=== PATIENT | female | born 1970 | race Two or more races ===

== ENCOUNTER 2020-03-05 14:00 | Inpatient (IN) | payer SELFPAY ==
[~2020-03-05] VITALS: Ht 162.6 cm; Wt 81.6 kg
[2020-03-05 14:09] VITALS: BP 112/35
--- NOTE | 2020-03-05 14:10 | NUR ---
ED Nurse Note: pt presents to ED c/o SOB, fever and CP x 1.5 weeks, pt states that she tested (+) for COVID last and since then she has felt worse. pt reports px i n her chest that is worse with cough, she has been coughing for 3 days. pt reports N/V, denies any diarrhea at this time. pt is noted to be satting at 96% on RA and febrile upon triage. 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 pt immediately placed on 15L NRB O2, 20 g IV line etablished on R AC, blood collected and sent to lab Addendum: 03/06/20 at 2013 by IZABELA pt was satting at 86% on RA on triage, not 9^%
[2020-03-05] MEDS ORDERED: dexAMETHasone 10mg/ml Inj IV ONE ×2 (14:30)
--- NOTE | 2020-03-05 14:40 | Emergency Room Report ---
History of Present Illness General Chief Complaint: Dyspnea/Respdistress Source: Patient (Ramonita Palm) Present Illness HPI 49-year-old female with current status of Covid positive x10 days here complaining of 1 week of shortness of breath, fever and chills, rapid heart rate. Patient appears to be febrile with temperature 102 F, hypoxic of 86%, and tachycardic. Denies any chest pain, diarrhea, headache and dizziness. Denies history of diabetes, tobacco smoke, drug use. Denies . Has not taken medication for symptom relief. (Ramonita Palm) Allergies: Coded Allergies: PENICILLINS (Verified Allergy, Unknown, 03/05/20) COVID-19 Screening Contact w/high risk pt: No Experienced COVID-19 symptoms?: Yes COVID-19 Testing performed PHYSIOTHERAPY ASSISTANT: Yes COVID-19 Screening: Positive COVID-19 COVID-19 Testing Source: 02/25/20 (Ramonita Palm) Patient History Past Medical History: see triage record Past Surgical History: none Pertinent Family History: none Now: No Reviewed Nursing Documentation: PMH: Agreed; PSxH: Agreed (Ramonita Palm) Nursing Documentation-PMH Past Medical History: No Stated History (Ramonita Palm) Physical Exam Vital Signs Date Time Temp Pulse Resp B/P (MAP) Pulse Ox O2 Delivery O2 Flow Rate FiO2 03/05/20 14:08 102.7 108 16 112/35 (60) 86 Room Air Sp02 EP Interpretation: abnormal - hypoxic, febrile, tachy General Appearance: mild distress Head: normocephalic, atraumatic Eyes: bilateral eye normal inspection, bilateral eye PERRL ENT: no angioedema Neck: supple Respiratory: chest non-tender, no respiratory distress, no retraction, no accessory muscle use Cardiovascular #1: regular rate, rhythm, no murmur Gastrointestinal: non tender, soft, non-distended Genitourinary: no CVA tenderness Neurologic: alert, motor strength/tone normal, oriented x3, sensory intact, responsive, speech normal Psychiatric: judgement/insight normal, memory normal, mood/affect normal, no suicidal/homicidal ideation Skin: no rash Lymphatic: no adenopathy (Ramonita Palm) Procedures Critical Care Time Critical Care Time Total critical care time; approximately 31 minutes. Due to a high probability of clinically significant, life threatening deterioration, the patient required my highest level of preparedness to intervene emergently and I personally spent this critical care time directly and personally managing the patient. This critical care time included obtaining a history; examining the patient; pulse oximetry; ordering and reviewing of studies; arranging urgent treatment with development of a management plan; evaluation of patient's response to treatment; frequent reassessment; and, discussions with other providers. This critical care time was performed to assess and manage the high probability of imminent, life-threatening deterioration that could result in multiorgan failure it was exclusive of separate billable procedures and treating other patients and teaching time. Please see MDM section and the rest of the note for further information on patient assessment and treatment.pt received 15L of O2 on NR (Ramonita Palm) Medical Decision Making PA Attestation All diagnoses and treatment plans were reviewed and discussed with my supervising physician Dr. Olsen (Ramonita Palm) PA Attestation I participate in the care of this patient along with DEYA Mercado Briefly, 49-year-old female testing positive for COVID-19 virus approximately 1 week ago. Worsening respiratory symptoms. X-ray showed patchy opacities. D- dimer positive. Patient on oxygen but titrating down now saturating 100% on 15 L. Received Decadron, antibiotics. Admitted to telemetry to panel physician, (Anam Olsen MD) Diagnostic Impression: Primary Impression: Hypoxia Additional Impression: Pneumonia due to COVID-19 virus ER Course 49-year-old female with current status of Covid positive x10 days here complaining of 1 week of shortness of breath, fever and chills, rapid heart rate. Patient appears to be febrile with temperature 102 F, hypoxic of 86%, and tachycardic. Denies any chest pain, diarrhea, headache and dizziness. Denies history of diabetes, tobacco smoke, drug use. Denies . Has not taken medication for symptom relief. Ddx considered but are not limited to: Hypoxia, Covid pneumonia, bronchitis, PNA, URI viral, bacterial brochitis Vital signs: are WNL, pt. is febrile H&PE are most consistent with: Hypoxia, Covid pneumonia ORDERS: ER Covid order set ED INTERVENTIONS: Dexamethasone, NS bolus, oxygen Patient was admitted with diagnosis of hypoxia, Covid pneumonia to Dr. Carolina under supervision of : Raúl pt stable at time of admission (Ramonita Palm) EKG Diagnostic Results Rate: normal Rhythm: NSR ST Segments: no acute changes Other Impression No acute ST changes (Ramonita Palm) Chest X-Ray Diagnostic Results Chest X-Ray Diagnostic Results : Chest X-Ray Ordered: Yes # of Views/Limited/Complete: 1 View Indication: Shortness of Breath EP Interpretation: Yes PA Xray: Interpretation reviewed, by supervising MD, and agrees with findings. Interpretation: other - infiltrates bilaterally Impression: Other - PNA Electronically Signed by: Ramonita Quintero PA-C (Ramonita Palm) Last Vital Signs Date Time Temp Pulse Resp B/P (MAP) Pulse Ox O2 Delivery O2 Flow Rate FiO2 03/05/20 14:08 102.7 108 16 112/35 (60) 86 Room Air (Ramonita Palm) Disposition: ADMITTED INPATIENT Condition: Serious Scripts No Active Prescriptions or Reported Meds Ramonita Palm Mar 05, 2020 14:40 Anam Olsen MD Mar 05, 2020 16:14
--- NOTE | 2020-03-05 14:50 | NUR ---
ED Nurse Note: pt's saturation increased to 100% on 15L NRB, HR has decreased to within normal limits
[2020-03-05 15:02] LABS: HEMOGLOBIN 11.8 G/DL (12.0-16.0); MEAN CORPUSCULAR VOLUME 83 FL (80-99); PLATELET COUNT 142 K/UL (150-450); RED BLOOD COUNT 3.97 M/UL (4.20-5.40); RED CELL DISTRIBUTION WIDTH 13.3 % (11.6-14.8); WHITE BLOOD COUNT 7.1 K/UL (4.8-10.8)
[2020-03-05 15:10] VITALS: BP 119/58
[2020-03-05 15:12] LABS: INR 1.1 (0.9-1.1)
[2020-03-05] MEDS: cefTRIAXone 1 GM in D5W 55 ML IVPB SCH (15:30)
[2020-03-05] MEDS ORDERED: cefTRIAXone 1 GM in NS 55 ML IVPB ONE (15:30)
[2020-03-05] MEDS ORDERED: Azithromycin 500 MG in NS 275 ML IV ONE (15:30)
[2020-03-05 15:40] LABS: ANION GAP 11 mmol/L (5-15); BLOOD UREA NITROGEN 11 mg/dL (7-18); CALCIUM 8.3 MG/DL (8.5-10.1); CARBON DIOXIDE 23 MMOL/L (21-32); CHLORIDE 101 MMOL/L (98-107); CREATININE 0.7 MG/DL (0.55-1.30); POTASSIUM 3.5 MMOL/L (3.5-5.1); SODIUM 135 MMOL/L (136-145)
[2020-03-05 15:47] LABS: ALANINE AMINOTRANSFERASE 23 U/L (12-78); ALBUMIN 3.1 G/DL (3.4-5.0); ALBUMIN/GLOBULIN RATIO 0.7 (1.0-2.7); ALKALINE PHOSPHATASE 73 U/L (46-116); ASPARTATE AMINO TRANSFERASE 26 U/L (15-37); BILIRUBIN,TOTAL 0.3 MG/DL (0.2-1.0); CKMB < 0.5 NG/ML (0.0-3.6); CREATINE KINASE 54 U/L (26-308); FERRITIN 114 NG/ML (8-388); LACTATE DEHYDROGENASE 260 U/L (81-234)
--- NOTE | 2020-03-05 15:57 | Diagnostic Imaging Report ---
EXAM: XR Chest, 1 View CLINICAL HISTORY: Shortness of breath TECHNIQUE: Frontal view of the chest. COMPARISON: No relevant prior studies available. FINDINGS: Lungs: Bilateral patchy pulmonary opacities, concerning for pneumonia. Low lung lines, likely related to shallow inspiration. Pleural space: Unremarkable. The costophrenic angles are sharp. No visible pneumothorax. Heart: Cardiac silhouette is mildly enlarged, however, may be exaggerated by portable AP exam technique. Mediastinum: Unremarkable. Bones/joints: Unremarkable. IMPRESSION: 1. Bilateral patchy pulmonary opacities, concerning for pneumonia. 2. Low lung lines, likely related to shallow inspiration.
[2020-03-05] MEDS ORDERED: Enoxaparin 60mg Inj SUBQ ONE (16:00)
[2020-03-05] MEDS ORDERED: Enoxaparin 40mg Inj SUBQ ONE (16:00)
--- NOTE | 2020-03-05 16:24 | NUR ---
ED Nurse Note: Report received from GEMA Villavicencio. Pt saturating at 100% on 15L NR. pt does not appear in acute distress at this time.
[2020-03-05 16:30] VITALS: BP 113/81
--- NOTE | 2020-03-05 16:40 | NUR ---
ED Nurse Note: PT RESTING IN BED ON HER PHONE.
--- NOTE | 2020-03-05 16:57 | NUR ---
ED Nurse Note: Dr. Bella (infectious disease doctor) at bedside
--- NOTE | 2020-03-05 17:08 | Infectious Diseases Prog Note ---
Assessment/Plan Problems: (1) COVID-19 virus infection Assessment & Plan: with hypoxemia , will start remdisvir and continue decadron, enhanced droplets isolation (2) Pneumonia due to COVID-19 virus Assessment & Plan: will start remdisvir and continue decadron , monitor O2 sat and CXR , SEND SPUTUM CULTURE (3) Hypoxia (4) Fever due to COVID-19 (5) Acute hypoxemic respiratory failure due to COVID-19 Subjective Allergies: Coded Allergies: PENICILLINS (Verified Allergy, Unknown, 03/05/20) Objective Last 24 Hour Vital Signs Date Time Temp Pulse Resp B/P (MAP) Pulse Ox O2 Delivery O2 Flow Rate FiO2 03/05/20 16:30 98.8 69 28 113/81 100 Non-Rebreather 15.0 100 03/05/20 15:10 89 31 119/58 100 Non-Rebreather 15.0 03/05/20 14:09 108 16 Room Air 03/05/20 14:09 102.7 105 16 112/35 86 Room Air 03/05/20 14:08 102.7 108 16 112/35 (60) 86 Room Air Height (Feet): 5 Height (Inches): 4.00 Weight (Pounds): 180 Laboratory Tests Test 03/05/20 14:40 White Blood Count 7.1 K/UL (4.8-10.8) Red Blood Count 3.97 M/UL (4.20-5.40) L Hemoglobin 11.8 G/DL (12.0-16.0) L Hematocrit 33.0 % (37.0-47.0) L Mean Corpuscular Volume 83 FL (80-99) Mean Corpuscular Hemoglobin 29.8 PG (27.0-31.0) Mean Corpuscular Hemoglobin Concent 35.9 G/DL (32.0-36.0) Red Cell Distribution Width 13.3 % (11.6-14.8) Platelet Count 142 K/UL (150-450) L Mean Platelet Volume 9.3 FL (6.5-10.1) Neutrophils (%) (Auto) % (45.0-75.0) Lymphocytes (%) (Auto) % (20.0-45.0) Monocytes (%) (Auto) % (1.0-10.0) Eosinophils (%) (Auto) % (0.0-3.0) Basophils (%) (Auto) % (0.0-2.0) Differential Total Cells Counted 100 Neutrophils % (Manual) 90 % (45-75) H Lymphocytes % (Manual) 8 % (20-45) L Monocytes % (Manual) 2 % (1-10) Eosinophils % (Manual) 0 % (0-3) Basophils % (Manual) 0 % (0-2) Band Neutrophils 0 % (0-8) Platelet Estimate Adequate Platelet Morphology Normal Hypochromasia 1+ Prothrombin Time 12.1 SEC (9.30-11.50) H Prothromb Time International Ratio 1.1 (0.9-1.1) Activated Partial Thromboplast Time 33 SEC (23-33) D-Dimer 1.25 mg/L FEU (0.00-0.49) H Sodium Level 135 MMOL/L (136-145) L Potassium Level 3.5 MMOL/L (3.5-5.1) Chloride Level 101 MMOL/L (98-107) Carbon Dioxide Level 23 MMOL/L (21-32) Anion Gap 11 mmol/L (5-15) Blood Urea Nitrogen 11 mg/dL (7-18) Creatinine 0.7 MG/DL (0.55-1.30) Estimat Glomerular Filtration Rate > 60 mL/min (>60) Glucose Level 107 MG/DL (74-106) H Lactic Acid Level 1.20 mmol/L (0.4-2.0) Calcium Level 8.3 MG/DL (8.5-10.1) L Ferritin 114 NG/ML (8-388) Total Bilirubin 0.3 MG/DL (0.2-1.0) Aspartate Amino Transf (AST/SGOT) 26 U/L (15-37) Alanine Aminotransferase (ALT/SGPT) 23 U/L (12-78) Alkaline Phosphatase 73 U/L (46-116) Lactate Dehydrogenase 260 U/L (81-234) H Total Creatine Kinase 54 U/L (26-308) Creatine Kinase MB < 0.5 NG/ML (0.0-3.6) Creatine Kinase MB Relative Index 0.9 Troponin I 0.000 ng/mL (0.000-0.056) C-Reactive Protein, Quantitative 25.6 mg/dL (0.00-0.90) H Pro-B-Type Natriuretic Peptide Pending Total Protein 7.7 G/DL (6.4-8.2) Albumin 3.1 G/DL (3.4-5.0) L Globulin 4.6 g/dL Albumin/Globulin Ratio 0.7 (1.0-2.7) L Lipase 72 U/L (73-393) L Mandi Bella M.D. Mar 05, 2020 17:08
[2020-03-05 18:08] VITALS: BP 105/67
--- NOTE | 2020-03-05 18:43 | NUR ---
Note latricia in EDM - 03/05/20 at 1843 by TERRELL ED Nurse Note: Pt resting in bed right lateral. Pt saturating at 96% on 4 L nasal cannula. pt vss.
--- NOTE | 2020-03-05 18:44 | NUR ---
ED Nurse Note: Pt in bed asleep. Resting HR 44-55.
--- NOTE | 2020-03-05 19:08 | NUR ---
HAND-OFF: Report given to GEMA Pizarro.
--- NOTE | 2020-03-05 19:09 | NUR ---
ED Nurse Note: Report received from JAVAN RIBEIRO
[2020-03-05] MEDS ORDERED: Morphine Sulfate 2mg/ml Inj(IV/IM USE ONLY) IVP PRN (20:30)
[2020-03-05] MEDS ORDERED: Albuterol/Ipratropium 3ml neb HHN PRN (20:30)
[2020-03-05] MEDS ORDERED: LORazepam Inj 2mg/ml 1ml IV PRN (20:30)
[2020-03-05] MEDS ORDERED: Zolpidem 5mg tab ORAL PRN (20:30)
--- NOTE | 2020-03-05 20:33 | Cardiology Progress Note ---
Assessment/Plan Assessment/Plan The patient is seen and examined, full consult note is dictated. Objective Last 24 Hour Vital Signs Date Time Temp Pulse Resp B/P (MAP) Pulse Ox O2 Delivery O2 Flow Rate FiO2 03/05/20 18:08 98.8 61 24 105/67 100 Non-Rebreather 15.0 03/05/20 16:30 98.8 69 28 113/81 100 Non-Rebreather 15.0 100 03/05/20 15:21 98.8 03/05/20 15:10 89 31 119/58 100 Non-Rebreather 15.0 03/05/20 14:09 108 16 Room Air 03/05/20 14:09 102.7 105 16 112/35 86 Room Air 03/05/20 14:08 102.7 108 16 112/35 (60) 86 Room Air Laboratory Tests Test 03/05/20 14:40 White Blood Count 7.1 K/UL (4.8-10.8) Red Blood Count 3.97 M/UL (4.20-5.40) L Hemoglobin 11.8 G/DL (12.0-16.0) L Hematocrit 33.0 % (37.0-47.0) L Mean Corpuscular Volume 83 FL (80-99) Mean Corpuscular Hemoglobin 29.8 PG (27.0-31.0) Mean Corpuscular Hemoglobin Concent 35.9 G/DL (32.0-36.0) Red Cell Distribution Width 13.3 % (11.6-14.8) Platelet Count 142 K/UL (150-450) L Mean Platelet Volume 9.3 FL (6.5-10.1) Neutrophils (%) (Auto) % (45.0-75.0) Lymphocytes (%) (Auto) % (20.0-45.0) Monocytes (%) (Auto) % (1.0-10.0) Eosinophils (%) (Auto) % (0.0-3.0) Basophils (%) (Auto) % (0.0-2.0) Differential Total Cells Counted 100 Neutrophils % (Manual) 90 % (45-75) H Lymphocytes % (Manual) 8 % (20-45) L Monocytes % (Manual) 2 % (1-10) Eosinophils % (Manual) 0 % (0-3) Basophils % (Manual) 0 % (0-2) Band Neutrophils 0 % (0-8) Platelet Estimate Adequate Platelet Morphology Normal Hypochromasia 1+ Prothrombin Time 12.1 SEC (9.30-11.50) H Prothromb Time International Ratio 1.1 (0.9-1.1) Activated Partial Thromboplast Time 33 SEC (23-33) D-Dimer 1.25 mg/L FEU (0.00-0.49) H Sodium Level 135 MMOL/L (136-145) L Potassium Level 3.5 MMOL/L (3.5-5.1) Chloride Level 101 MMOL/L (98-107) Carbon Dioxide Level 23 MMOL/L (21-32) Anion Gap 11 mmol/L (5-15) Blood Urea Nitrogen 11 mg/dL (7-18) Creatinine 0.7 MG/DL (0.55-1.30) Estimat Glomerular Filtration Rate > 60 mL/min (>60) Glucose Level 107 MG/DL (74-106) H Lactic Acid Level 1.20 mmol/L (0.4-2.0) Calcium Level 8.3 MG/DL (8.5-10.1) L Ferritin 114 NG/ML (8-388) Total Bilirubin 0.3 MG/DL (0.2-1.0) Aspartate Amino Transf (AST/SGOT) 26 U/L (15-37) Alanine Aminotransferase (ALT/SGPT) 23 U/L (12-78) Alkaline Phosphatase 73 U/L (46-116) Lactate Dehydrogenase 260 U/L (81-234) H Total Creatine Kinase 54 U/L (26-308) Creatine Kinase MB < 0.5 NG/ML (0.0-3.6) Creatine Kinase MB Relative Index 0.9 Troponin I 0.000 ng/mL (0.000-0.056) C-Reactive Protein, Quantitative 25.6 mg/dL (0.00-0.90) H Pro-B-Type Natriuretic Peptide Pending Total Protein 7.7 G/DL (6.4-8.2) Albumin 3.1 G/DL (3.4-5.0) L Globulin 4.6 g/dL Albumin/Globulin Ratio 0.7 (1.0-2.7) L Lipase 72 U/L (73-393) L Breezy Raymond MD Mar 05, 2020 20:33
[2020-03-05] MEDS ORDERED: Loading Dose:Remdesivir 200mg/NS 210ml IV SCH ×2 (21:30)
--- NOTE | 2020-03-05 22:00 | Consultation ---
History of Present Illness General Date patient seen: Mar 05, 2020 Time patient seen: 16:18 Chief Complaint: Dyspnea/Respdistress Referring physician: Kesha Serrano Reason for Consultation: COVID 19 Viral infection Present Illness HPI This is a 49-year-old female with no significant PMH presented to [facility] ED complaining of one week of shortness of breath, fever and chills, and rapid heart rate. Patient tested positive for COVID 19 about two weeks ago and her symptoms have been getting worse what prompted her to come to ED . Patient was found to be febrile with temperature 102 F, hypoxic of 86% on RA , and tachycardic. Denies any chest pain, diarrhea, headache and dizziness. Denies any sick contact with COVID cases or recent travel , no diabetes, tobacco smoke, or drug use. Denies . Has not taken m edication for symptom relief. Patient tested positive for COVID 19 with rapid test , so she was given decadron iv and antibiotics, infectious disease consult was requested for antimicrobial treatment and further care . Allergies: Coded Allergies: PENICILLINS (Verified Allergy, Unknown, 03/05/20) Medication History No Active Prescriptions or Reported Meds Patient History Limited by: language barrier History Provided By: Patient, Medical Record Healthcare decision maker Resuscitation status Advanced Directive on File Review of Systems Constitutional: Reports: chills, fever, weakness ENT: Reports: throat pain Respiratory: Reports: cough, shortness of breath Cardiovascular: Reports: palpitations Gastrointestinal: Reports: nausea Genitourinary: Reports: no symptoms Musculoskeletal: Reports: muscle pain Skin: Reports: no symptoms Psychiatric: Reports: no symptoms Neurological: Reports: headache Endocrine: Reports: no symptoms Hematologic/Lymphatic: Reports: no symptoms Physical Exam General Appearance: WD/WN, no apparent distress, alert, lethargic, obese, alert oriented x3 Lines, tubes and drains: peripheral HEENT: normocephalic, atraumatic, anicteric, mucous membranes moist, PERRL Neck: non-tender, supple, normal inspection Respiratory/Chest: chest wall non-tender, no respiratory distress, crackles/rales, rhonchi - bilaterally Cardiovascular/Chest: normal peripheral pulses, normal rate, regular rhythm, no gallop/murmur Abdomen: normal bowel sounds, non tender, soft, no organomegaly, no mass Genitourinary/Rectal: normal genital exam Extremities: normal range of motion, non-tender, normal inspection, no calf tenderness, normal capillary refill Skin Exam: normal pigmentation, warm/dry 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, alert, oriented x 3, responsive Musculoskeletal: normal muscle bulk, no effusion Last 24 Hour Vital Signs Date Time Temp Pulse Resp B/P (MAP) Pulse Ox O2 Delivery O2 Flow Rate FiO2 03/05/20 18:08 98.8 61 24 105/67 100 Non-Rebreather 15.0 03/05/20 16:30 98.8 69 28 113/81 100 Non-Rebreather 15.0 100 03/05/20 15:21 98.8 03/05/20 15:10 89 31 119/58 100 Non-Rebreather 15.0 03/05/20 14:09 108 16 Room Air 03/05/20 14:09 102.7 105 16 112/35 86 Room Air 03/05/20 14:08 102.7 108 16 112/35 (60) 86 Room Air Laboratory Tests Test 03/05/20 14:40 White Blood Count 7.1 K/UL (4.8-10.8) Red Blood Count 3.97 M/UL (4.20-5.40) L Hemoglobin 11.8 G/DL (12.0-16.0) L Hematocrit 33.0 % (37.0-47.0) L Mean Corpuscular Volume 83 FL (80-99) Mean Corpuscular Hemoglobin 29.8 PG (27.0-31.0) Mean Corpuscular Hemoglobin Concent 35.9 G/DL (32.0-36.0) Red Cell Distribution Width 13.3 % (11.6-14.8) Platelet Count 142 K/UL (150-450) L Mean Platelet Volume 9.3 FL (6.5-10.1) Neutrophils (%) (Auto) % (45.0-75.0) Lymphocytes (%) (Auto) % (20.0-45.0) Monocytes (%) (Auto) % (1.0-10.0) Eosinophils (%) (Auto) % (0.0-3.0) Basophils (%) (Auto) % (0.0-2.0) Differential Total Cells Counted 100 Neutrophils % (Manual) 90 % (45-75) H Lymphocytes % (Manual) 8 % (20-45) L Monocytes % (Manual) 2 % (1-10) Eosinophils % (Manual) 0 % (0-3) Basophils % (Manual) 0 % (0-2) Band Neutrophils 0 % (0-8) Platelet Estimate Adequate Platelet Morphology Normal Hypochromasia 1+ Prothrombin Time 12.1 SEC (9.30-11.50) H Prothromb Time International Ratio 1.1 (0.9-1.1) Activated Partial Thromboplast Time 33 SEC (23-33) D-Dimer 1.25 mg/L FEU (0.00-0.49) H Sodium Level 135 MMOL/L (136-145) L Potassium Level 3.5 MMOL/L (3.5-5.1) Chloride Level 101 MMOL/L (98-107) Carbon Dioxide Level 23 MMOL/L (21-32) Anion Gap 11 mmol/L (5-15) Blood Urea Nitrogen 11 mg/dL (7-18) Creatinine 0.7 MG/DL (0.55-1.30) Estimat Glomerular Filtration Rate > 60 mL/min (>60) Glucose Level 107 MG/DL (74-106) H Lactic Acid Level 1.20 mmol/L (0.4-2.0) Calcium Level 8.3 MG/DL (8.5-10.1) L Ferritin 114 NG/ML (8-388) Total Bilirubin 0.3 MG/DL (0.2-1.0) Aspartate Amino Transf (AST/SGOT) 26 U/L (15-37) Alanine Aminotransferase (ALT/SGPT) 23 U/L (12-78) Alkaline Phosphatase 73 U/L (46-116) Lactate Dehydrogenase 260 U/L (81-234) H Total Creatine Kinase 54 U/L (26-308) Creatine Kinase MB < 0.5 NG/ML (0.0-3.6) Creatine Kinase MB Relative Index 0.9 Troponin I 0.000 ng/mL (0.000-0.056) C-Reactive Protein, Quantitative 25.6 mg/dL (0.00-0.90) H Pro-B-Type Natriuretic Peptide Pending Total Protein 7.7 G/DL (6.4-8.2) Albumin 3.1 G/DL (3.4-5.0) L Globulin 4.6 g/dL Albumin/Globulin Ratio 0.7 (1.0-2.7) L Lipase 72 U/L (73-393) L Height (Feet): 5 Height (Inches): 4.00 Weight (Pounds): 180 Medications Current Medications Medications (Trade) Dose Ordered Sig/Jennifer Route PRN Reason Start Time Stop Time Status Last Admin Dose Admin Acetaminophen (Tylenol) 650 mg Q4H PRN ORAL Mild Pain (Pain Scale 1-3) 03/05/20 20:30 04/04/20 20:29 UNV Albuterol/ Ipratropium (Albuterol/ Ipratropium) 3 ml QID PRN HHN Shortness of Breath 03/05/20 20:30 03/10/20 20:29 UNV Azithromycin 500 mg/Dextrose 275 ml @ 275 mls/hr Q24H IV 03/05/20 21:30 03/10/20 21:29 UNV Ceftriaxone Sodium 1 gm/ Dextrose 55 ml @ 110 mls/hr Q24H IV 03/05/20 21:30 03/12/20 21:29 UNV Enoxaparin Sodium (Lovenox) 40 mg Q24H SUBQ 03/05/20 21:30 06/03/20 21:29 UNV Lorazepam (Ativan 2mg/ml 1ml) 0.5 mg Q4H PRN IV For Anxiety 03/05/20 20:30 03/12/20 20:29 UNV Morphine Sulfate (Morphine Sulfate) 2 mg TID PRN IVP Moderate Pain (Pain Scale 4-6) 03/05/20 20:30 03/12/20 20:29 UNV Ondansetron HCl (Zofran) 4 mg Q6H PRN IVP Nausea & Vomiting 03/05/20 20:30 04/04/20 20:29 UNV Pantoprazole (Protonix) 40 mg DAILY ORAL 03/06/20 09:00 04/05/20 08:59 UNV Remdesivir 100 mg/ Sodium Chloride 250 ml @ 250 mls/hr Q24H IV 03/06/20 18:00 03/09/20 18:59 Remdesivir 200 mg/ Sodium Chloride 250 ml @ 125 mls/hr ONCE IV 03/05/20 21:30 03/05/20 23:59 Zolpidem Tartrate (Ambien) 5 mg HSPRN PRN ORAL Insomnia 03/05/20 20:30 03/12/20 20:29 UNV Assessment/Plan Problem List: (1) COVID-19 virus infection Assessment & Plan: with hypoxemia , will start remdisvir and continue decadron, enhanced droplets isolation ICD Codes: U07.1 - COVID-19 SNOMED: 257281762 (2) Pneumonia due to COVID-19 virus Assessment & Plan: will start remdisvir and continue decadron , monitor O2 sat and CXR , SEND SPUTUM CULTURE ICD Codes: U07.1 - COVID-19; J12.89 - Other viral pneumonia SNOMED: 727806924270725623 (3) Hypoxia ICD Codes: R09.02 - Hypoxemia; J12.89 - Other viral pneumonia SNOMED: 844782742 (4) Fever due to COVID-19 ICD Codes: U07.1 - COVID-19; R50.9 - Fever, unspecified (5) Acute hypoxemic respiratory failure due to COVID-19 ICD Codes: U07.1 - COVID-19; J96.01 - Acute respiratory failure with hypoxia Status: stable Mandi Bella M.D. Mar 05, 2020 22:00
--- NOTE | 2020-03-05 22:51 | NUR ---
ED Nurse Note: Urine sent to lab. Patient is awake on bed. AAOX4. VSS as documented
[2020-03-05 22:52] VITALS: BP 112/71
[2020-03-05 23:02] LABS: BILIRUBIN, URINE NEGATIVE (NEGATIVE); GLUCOSE, URINE (UA) NEGATIVE (NEGATIVE); KETONES,URINE 3+ (NEGATIVE); LEUKOCYTE ESTERASE ,URINE 1+ (NEGATIVE); NITRITE,URINE NEGATIVE (NEGATIVE); PH,URINE 6 (4.5-8.0); PROTEIN,URINE 2+ (NEGATIVE); UROBILINOGEN,URINE NORMAL MG/DL (0.0-1.0)
[2020-03-05 23:17] LABS: APPEARANCE,URINE SLIGHTLY CLOUDY; COLOR,URINE YELLOW
--- NOTE | 2020-03-05 23:45 | Consultation ---
DATE OF CONSULTATION: 03/05/2020 CARDIOLOGY CONSULTATION CONSULTING PHYSICIAN: Breezy Raymond MD REFERRING PHYSICIAN: Kevin Carolina MD REASON FOR CONSULTATION: Management of dyspnea from the cardiac standpoint, as well as tachycardia. HISTORY OF PRESENT ILLNESS: The patient is a very unfortunate 49-year-old female who presented to the hospital with one-week progressive worsening of shortness of breath, fever, and chills as well as palpitations. Apparently, the patient had a fever of 102, and oxygen level was also low at 86% at home. The patient became [id number] just about 10 days ago and according to the patient, her condition is not improving. She has not been given any medication for this condition. At the time of arrival to the hospital, blood pressure was 112/35 mmHg, mean of 60 and heart rate of 108, pulse oximetry of 86% on room air. She was febrile. She does not have any coronary artery disease risk factors. Initial blood tests in the emergency department showed hemoglobin 11.8, platelet count of 142,000 with of only 8%. Sodium of 135, and C-reactive protein of 25.6. Troponin I level was zero. D-dimer was 1.25. A 12-lead electrocardiogram was significant for sinus rhythm with no acute ischemic features. Chest x-ray showed patchy infiltration in both lungs with cardiomegaly. The patient still in the emergency department awaiting bed for acute respiratory failure and bilateral pneumonitis due to COVID-19 infection. Cardiology consultation was made at the request of Dr. Carolina for management of tachycardia. PAST MEDICAL HISTORY: None. ALLERGIES: Penicillin. FAMILY HISTORY: No premature coronary artery disease in the first-degree relatives. SOCIAL HISTORY: Denies any tobacco use, alcohol, or illicit drug use. REVIEW OF SYSTEMS: A 12-system review done and essentially negative except what was mentioned in history of present illness. MEDICATIONS: List of medications at home is none. PHYSICAL EXAMINATION: VITAL SIGNS: Blood pressure was 112/35, respirations 16, pulse of 108, temperature of 102.7 degrees Fahrenheit, O2 saturation of 86% on room air. GENERAL: This is a very unfortunate 49-year-old female in mild respiratory distress. Alert and oriented x4. HEENT: Atraumatic and normocephalic. Anicteric. Pupils are equal, round, and reactive to light and accommodation. Extraocular muscles intact. NECK: JVP less than 5 cm. No carotid bruit. Carotid upstrokes 2+ bilaterally. CARDIOVASCULAR SYSTEM: Normal S1, S2. Regular rhythm. Tachycardic. No murmurs, gallops, or rubs. PMI is at fourth intercostal space in midclavicular line. LUNGS: Bibasilar crackles. ABDOMEN: Soft, nontender, nondistended. No hepatosplenomegaly. Positive bowel sounds. EXTREMITIES: No evidence of edema, clubbing, or cyanosis. LABORATORY FINDINGS: Chemistry showed sodium 135, potassium 3.5, chloride 101, bicarbonate 23, BUN 11, creatinine 0.7, glucose 107, and calcium is 8.3. CBC, WBC count of 7.1, hemoglobin 11.9, hematocrit of 33.0, and platelet count is 142,000. INR is 1.1. ASSESSMENT AND PLAN: The patient is a very unfortunate 49-year-old female seen in Cardiology consultation. 1. Sinus tachycardia. This is due to hypoxemia. At this point, I would concentrate on oxygenation and active treatment of COVID-19 infection including remdesivir, dexamethasone, and azithromycin. The patient requires to be on a full dose of Lovenox, which will be initiated at 80 mg subcu twice daily in the face of elevated D-dimer and severe pneumonitis on chest x-ray. 2. COVID-19 pneumonitis. The patient may require to be admitted to [facility] given the severity of chest x-ray infiltration. I would like to thank Dr. Carolina for the courtesy of this consultation. Breezy Raymond M.D. DR: Dayday JOB#: [id number] CC:
--- NOTE | 2020-03-06 02:10 | NUR ---
ED Nurse Note: Patient asleep on bed. VSS as documented
[2020-03-06 02:30] VITALS: BP 127/85
--- NOTE | 2020-03-06 06:00 | NUR ---
ED Nurse Note: Admit labs sent for workup.
[2020-03-06 06:32] LABS: HEMATOCRIT 37.2 % (37.0-47.0); HEMOGLOBIN 12.7 G/DL (12.0-16.0); MEAN CORPUSCULAR VOLUME 87 FL (80-99); PLATELET COUNT 160 K/UL (150-450); RED BLOOD COUNT 4.26 M/UL (4.20-5.40); RED CELL DISTRIBUTION WIDTH 13.3 % (11.6-14.8); WHITE BLOOD COUNT 11.1 K/UL (4.8-10.8)
[2020-03-06 06:35] VITALS: BP 126/84
[2020-03-06 06:58] LABS: ALANINE AMINOTRANSFERASE 22 U/L (12-78); ALBUMIN 2.8 G/DL (3.4-5.0); ALBUMIN/GLOBULIN RATIO 0.6 (1.0-2.7); ALKALINE PHOSPHATASE 72 U/L (46-116); ANION GAP 9 mmol/L (5-15); ASPARTATE AMINO TRANSFERASE 25 U/L (15-37); BILIRUBIN,TOTAL 0.4 MG/DL (0.2-1.0); BLOOD UREA NITROGEN 15 mg/dL (7-18); CALCIUM 8.3 MG/DL (8.5-10.1); CARBON DIOXIDE 25 MMOL/L (21-32); CHLORIDE 106 MMOL/L (98-107); CREATININE 0.6 MG/DL (0.55-1.30); POTASSIUM 3.8 MMOL/L (3.5-5.1); SODIUM 140 MMOL/L (136-145)
--- NOTE | 2020-03-06 07:32 | NUR ---
ED Nurse Note: Dr. Carolina at bedside
--- NOTE | 2020-03-06 07:53 | NUR ---
ED Nurse Note: Report given to BASIA RIBEIRO
--- NOTE | 2020-03-06 08:00 | NUR ---
ED Nurse Note: Received report from GEMA Pizarro for continuity of care. Pt on bed, awake and alert x 4, VSS, satting at 100% on a NRB, no acute distress noted as of now. will continue to monitor.
--- NOTE | 2020-03-06 08:11 | History & Physical ---
History and Physical History & Physicial Full Dictation completed Kevin Carolina MD Mar 06, 2020 08:11
[2020-03-06] MEDS: Enoxaparin 40mg Inj SUBQ SCH (09:28)
[2020-03-06 11:08] VITALS: BP 105/80
[2020-03-06] MEDS ORDERED: Azithromycin 500 MG in D5W 275 ML IV SCH (15:30)
[2020-03-06] MEDS: cefTRIAXone 1 GM in D5W 55 ML IVPB SCH (15:42)
--- NOTE | 2020-03-06 16:01 | History and Physical Report ---
DATE OF ADMISSION: 03/05/2020 SOURCE OF INFORMATION: Patient and EMR. HISTORY OF PRESENT ILLNESS: Patient is a 49-year-old female who presented with shortness of breath for last 10 days. Patient denies any cough. Patient denies any nausea, vomitus, diarrhea, or constipation. Patient otherwise is asymptomatic. FAMILY HISTORY: Reviewed noncontributory. ALLERGIES: Penicillin. SOCIAL HISTORY: Patient lives by herself. Denies history of illicit drug abuse, smoking, or alcohol abuse. Reported that she is single. MEDICATIONS: Current hospital medications including, but not limited to azithromycin, ceftriaxone. Chest x-ray dated 03/05/2020 reviewed, shows bilateral patchy opacities. PHYSICAL EXAMINATION: VITAL SIGNS: Blood pressure 110/80, temperature 102, pulse rate 108, pulse ox 80% on room air, respiratory rate 18. HEAD AND NECK: Atraumatic and normocephalic. CHEST: Diffuse bronchial breathing sounds. HEART: S1, S2. Regular rate and rhythm. ABDOMEN: Soft. No organomegaly. MUSCULOSKELETAL: No gross lateralized motor deficit. NEUROLOGY: Patient is awake, alert, oriented x3. LABORATORY DATA: Labs dated 03/05/2020 shows WBC 7.1, hemoglobin of 11.8, platelet count of 142. Troponin negative. C-reactive protein 25. Lipase 72. Sodium 135. ASSESSMENT AND PLAN: 1. COVID positive pneumonia. 2. Anemia. 3. Hyponatremia. 4. Acute hypoxemic respiratory failure secondary to #1. 5. GI and DVT prophylaxes. PLAN OF CARE: We will continue with remdesivir along with the empiric antibiotic treatment. Infectious Disease, Pulmonary and network desktop support specialist have been consulted and notified. Patient agreed with transfer to [facility] [place]. COMMENTS: The time of this dictation does not reflect the actual time of encounter. Kevin Carolina M.D. DR: DAMIEN JOB#: [id number] CC: JON
--- NOTE | 2020-03-06 17:00 | Consultation ---
DATE OF CONSULTATION: 03/06/2020 CONSULTING PHYSICIAN: Amber Benson ATTENDING PHYSICIAN: Kevin Carolina M.D. REASON FOR CONSULTATION: Hypoxia, COVID-19 pneumonia. HISTORY OF PRESENT ILLNESS: This is a 49-year-old female without pertinent past medical history, who presented to the hospital with 1-week history of progressively worsening shortness of breath, fever, chills, as well as palpitations. Per the patient, she had a fever of 102. The patient stated that she tested positive for COVID-19 ten days ago. She denies taking any medication for her condition. On arrival to the ED, her oxygen saturation was 86% on room air. Initial blood test in the emergency department showed hemoglobin 11.8, platelet count of 142,000. Sodium of 135, and CRP of 25.6. Troponin 1 level was zero. D-dimer of 1.25. A 12-lead EKG showed sinus rhythm with no acute ischemic features. Chest x-ray showed bilateral patchy pulmonary opacities. The patient is still in the emergency department awaiting bed placement for respiratory failure and cold 19 pneumonitis. The patient was given Decadron IV and antibiotics in the ER. PAST MEDICAL HISTORY: None reported. MEDICATIONS: No home medication reported. ALLERGIES: Penicillin. FAMILY HISTORY: Noncontributory. PERSONAL/SOCIAL HISTORY: Denies tobacco use or drug use. REVIEW OF SYSTEMS: HEENT: Reports throat pain. CHEST AND LUNGS: Reports cough, shortness of breath. CARDIOVASCULAR: Reports palpitation. GASTROINTESTINAL: Reports nausea. GENITOURINARY: Denies any frequency, urgency, dysuria, hematuria, flank pain. NEUROLOGICAL: Reports headaches. PHYSICAL EXAMINATION: VITAL SIGNS: Blood pressure 126/84, heart rate 70, respiratory rate 28, weight 81 kg, height 162 cm. HEENT: Head exam reveals that the head is normocephalic, atraumatic without deformity or unusual swelling. Pupils are round, reactive to light and accommodation normally. There is no nystagmus, lid lag, or exophthalmos. Vision is normal. CHEST AND LUNGS: Chest wall nontender, no respiratory distress at the moment, crackles and rales, rhonchi bilaterally. CARDIOVASCULAR: Reveals normal S1, S2 without murmurs, rubs, or clicks. ABDOMEN: Soft with no tenderness or organomegaly. RECTAL: Deferred. MUSCULOSKELETAL: There is no tenderness to palpation. NEUROLOGICAL: Cranial nerves II to XII are intact, alert, and oriented x3, responsive. LABORATORY DATA: Laboratory testing shows WBC 11.1. Chemistries, glucose 131, calcium 8.3, albumin 2.8. D-dimer 1.25. Urinalysis shows 2+ protein, 3+ ketones, 1+ blood, 1+ leukocyte esterase. IMPRESSION: 1. COVID-19 pneumonitis with respiratory distress - currently saturating at 98% on 15 L nonrebreather mask. - Continue supplemental oxygen. - On ceftriaxone per Dr. Cordova. - On remdesivir, Decadron per Dr. Bella. - On azithromycin per Dr. Carolina. 2. DVT prophylaxis - on Lovenox. 3. History of fever. We will follow carefully. The care for this patient was discussed with my supervising physician. Time spent for this case was approximately 31 minutes. Lenny Carrasquillo M.D. DEYA Torres DR: GAETANO/Christian JOB#: [id number] CC: JON
--- NOTE | 2020-03-06 17:10 | NUR ---
ED Nurse Note: nurse attempted to wean off pt from 15LPM via NRB, currently placed pt on 6LPM via NC, noted pt satting around 96-99%. no acute distress noted.
[2020-03-06] MEDS ORDERED: Maintenance Dose:Remdesivir 100mg/NS 230ml x 4 Doses IV SCH ×2 (18:00)
[2020-03-06 18:06] VITALS: BP 121/88
--- NOTE | 2020-03-06 19:17 | NUR ---
ED Nurse Note: hand off given to fabian rn.
--- NOTE | 2020-03-06 19:18 | NUR ---
ED Nurse Note: Report received from BASIA RIBEIRO
[2020-03-06 20:00] VITALS: BP 125/76
--- NOTE | 2020-03-06 20:05 | Infectious Diseases Prog Note ---
Assessment/Plan Problems: (1) COVID-19 virus infection Assessment & Plan: with hypoxemia , continue remdisvir for 5 days and decadron for 10 days , keep in enhanced droplets isolation (2) Pneumonia due to COVID-19 virus Assessment & Plan: continue remdisvir and decadron , monitor O2 sat and CXR , SEND SPUTUM CULTURE (3) Hypoxia Assessment & Plan: due to the above, continue oxygen and antivirals with steroids (4) Fever due to COVID-19 Assessment & Plan: continue tylenol (5) Acute hypoxemic respiratory failure due to COVID-19 Assessment & Plan: on remdisvir and decadron , continue high flow oxygen Subjective Constitutional: Reports: fatigue HEENT: Reports: congestion Breasts: Reports: no symptoms Cardiovascular: Reports: no symptoms Gastrointestinal/Abdominal: Reports: no symptoms Genitourinary: Reports: no symptoms Neurologic: Reports: no symptoms Psychiatric: Reports: no symptoms Skin: Reports: no symptoms Endocrine: Reports: no symptoms Hematologic: Reports: no symptoms Musculoskeletal: Reports: no symptoms Allergies: Coded Allergies: PENICILLINS (Verified Allergy, Unknown, 03/05/20) Objective Last 24 Hour Vital Signs Date Time Temp Pulse Resp B/P (MAP) Pulse Ox O2 Delivery O2 Flow Rate FiO2 03/06/20 18:06 98.9 68 15 121/88 100 Nasal Cannula 6.0 03/06/20 11:08 98.9 84 26 105/80 100 Non-Rebreather 15.0 03/06/20 06:35 98.9 70 28 126/84 100 Non-Rebreather 15.0 03/06/20 02:30 98.6 70 28 127/85 100 Non-Rebreather 15.0 03/05/20 22:52 98.9 68 22 112/71 100 Non-Rebreather 15.0 Height (Feet): 5 Height (Inches): 4.00 Weight (Pounds): 180 General Appearance: WD/WN, no acute distress HEENT: normocephalic, atraumatic, anicteric, mucous membranes moist, PERRL Respiratory/Chest: chest wall non-tender, no respiratory distress, no accessory muscle use, decreased breath sounds, crackles/rales Cardiovascular: normal peripheral pulses, normal rate, regular rhythm, no gallop/murmur, no JVD Abdomen: normal bowel sounds, soft, non tender, no organomegaly, non distended, no mass, no scars Genitourinary: normal external genitalia Extremities: no cyanosis, no clubbing Skin: no rash, no lesions, no ulcers Neurologic/Psychiatric: 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, no motor/sensory deficits, alert, oriented x 3, responsive Lymphatic: no neck adenopathy, no groin adenopathy Musculoskeletal: normal muscle bulk, no effusion Laboratory Tests Test 03/05/20 22:50 03/06/20 06:00 Urine Color Yellow Urine Appearance Slightly cloudy Urine pH 6 (4.5-8.0) Urine Specific [place] 1.015 (1.005-1.035) Urine Protein 2+ (NEGATIVE) H Urine Glucose (UA) Negative (NEGATIVE) Urine Ketones 3+ (NEGATIVE) H Urine Blood 1+ (NEGATIVE) H Urine Nitrite Negative (NEGATIVE) Urine Bilirubin Negative (NEGATIVE) Urine Urobilinogen Normal MG/DL (0.0-1.0) Urine Leukocyte Esterase 1+ (NEGATIVE) H Urine RBC 0-2 /HPF (0 - 2) Urine WBC 2-4 /HPF (0 - 2) Urine Squamous Epithelial Cells Few /LPF (NONE/OCC) Urine Bacteria Few /HPF (NONE) White Blood Count 11.1 K/UL (4.8-10.8) #H Red Blood Count 4.26 M/UL (4.20-5.40) Hemoglobin 12.7 G/DL (12.0-16.0) Hematocrit 37.2 % (37.0-47.0) Mean Corpuscular Volume 87 FL (80-99) Mean Corpuscular Hemoglobin 29.8 PG (27.0-31.0) Mean Corpuscular Hemoglobin Concent 34.2 G/DL (32.0-36.0) Red Cell Distribution Width 13.3 % (11.6-14.8) Platelet Count 160 K/UL (150-450) Mean Platelet Volume 9.9 FL (6.5-10.1) Neutrophils (%) (Auto) % (45.0-75.0) Lymphocytes (%) (Auto) % (20.0-45.0) Monocytes (%) (Auto) % (1.0-10.0) Eosinophils (%) (Auto) % (0.0-3.0) Basophils (%) (Auto) % (0.0-2.0) Differential Total Cells Counted 100 Neutrophils % (Manual) 85 % (45-75) H Lymphocytes % (Manual) 8 % (20-45) L Monocytes % (Manual) 7 % (1-10) Eosinophils % (Manual) 0 % (0-3) Basophils % (Manual) 0 % (0-2) Band Neutrophils 0 % (0-8) Platelet Estimate Decreased L Platelet Morphology Normal Sodium Level 140 MMOL/L (136-145) Potassium Level 3.8 MMOL/L (3.5-5.1) Chloride Level 106 MMOL/L (98-107) Carbon Dioxide Level 25 MMOL/L (21-32) Anion Gap 9 mmol/L (5-15) Blood Urea Nitrogen 15 mg/dL (7-18) Creatinine 0.6 MG/DL (0.55-1.30) Estimat Glomerular Filtration Rate > 60 mL/min (>60) Glucose Level 131 MG/DL (74-106) H Calcium Level 8.3 MG/DL (8.5-10.1) L Total Bilirubin 0.4 MG/DL (0.2-1.0) Aspartate Amino Transf (AST/SGOT) 25 U/L (15-37) Alanine Aminotransferase (ALT/SGPT) 22 U/L (12-78) Alkaline Phosphatase 72 U/L (46-116) Total Protein 7.8 G/DL (6.4-8.2) Albumin 2.8 G/DL (3.4-5.0) L Globulin 5.0 g/dL Albumin/Globulin Ratio 0.6 (1.0-2.7) L Current Medications Medications (Trade) Dose Ordered Sig/Jennifer Route PRN Reason Start Time Stop Time Status Last Admin Dose Admin Acetaminophen (Tylenol) 650 mg Q4H PRN ORAL Mild Pain (Pain Scale 1-3) 03/05/20 20:30 04/04/20 20:29 Albuterol/ Ipratropium (Albuterol/ Ipratropium) 3 ml QID PRN HHN Shortness of Breath 03/05/20 20:30 03/10/20 20:29 Azithromycin 500 mg/Dextrose 275 ml @ 275 mls/hr Q24H IV 03/06/20 15:30 03/11/20 15:29 03/06/20 15:42 Ceftriaxone Sodium 1 gm/ Dextrose 55 ml @ 110 mls/hr Q24H IVPB 03/05/20 15:30 03/12/20 15:29 03/06/20 15:42 Dexamethasone Sodium Phosphate (Decadron 4mg/ml vial) 6 mg DAILY IVP 03/06/20 09:00 03/15/20 23:23 03/06/20 09:27 Enoxaparin Sodium (Lovenox) 40 mg Q24H SUBQ 03/06/20 09:00 06/04/20 08:59 03/06/20 09:28 Lorazepam (Ativan 2mg/ml 1ml) 0.5 mg Q4H PRN IV For Anxiety 03/05/20 20:30 03/12/20 20:29 Morphine Sulfate (Morphine Sulfate) 2 mg TID PRN IVP Moderate Pain (Pain Scale 4-6) 03/05/20 20:30 03/12/20 20:29 Ondansetron HCl (Zofran) 4 mg Q6H PRN IVP Nausea & Vomiting 03/05/20 20:30 04/04/20 20:29 Remdesivir 100 mg/ Sodium Chloride 250 ml @ 250 mls/hr Q24H IV 03/06/20 21:00 03/09/20 21:59 Zolpidem Tartrate (Ambien) 5 mg HSPRN PRN ORAL Insomnia 03/05/20 20:30 03/12/20 20:29 Mandi Bella M.D. Mar 06, 2020 20:05
[2020-03-06] MEDS: Maintenance Dose:Remdesivir 100mg/NS 230ml x 4 Doses IV SCH ×2 (21:03)
--- NOTE | 2020-03-06 21:16 | NUR ---
ED Nurse Note: Food and drinks provided. VSS as documented. Needs attended
--- NOTE | 2020-03-06 22:30 | Consultation ---
DATE OF CONSULTATION: 03/06/2020 NEPHROLOGY CONSULTATION CONSULTING PHYSICIAN: Dawn Romano MD REFERRING PHYSICIAN: Kevin Carolina MD REASON FOR CONSULTATION: Hyponatremia and hypokalemia. HISTORY OF PRESENT ILLNESS: Patient is an unfortunate 49-year-old female with no significant past medical history, who presented to emergency room at [facility] after she continued to have a fever for 1 week and worsening of shortness of breath. Patient in the ER was found to have an O2 saturation of 86%. Sodium was 135, calcium was 8.3. Patient was placed on high-flow oxygen. I was called for management of renal disease and electrolyte imbalance. PAST MEDICAL HISTORY: None. MEDICATIONS: None. ALLERGIES: Penicillin. FAMILY HISTORY: Noncontributory. REVIEW OF SYSTEMS: GENERAL: Complained of generalized weakness. Fever and chills. No night sweats. HEAD AND NECK: No dysphagia, odynophagia, blurry vision, headache, neck stiffness. PULMONARY: She complained of shortness of breath and cough. CARDIOVASCULAR: Denies any chest pain or palpitations. GASTROINTESTINAL: Denies any nausea, vomiting. Decreased appetite was noted. GENITOURINARY: No dysuria or frequency. No hematuria. PHYSICAL EXAMINATION: Deferred due to the patient being COVID positive. LABORATORY DATA: Lab values revealed sodium 135, potassium 3.5, chloride 101, bicarb 22, BUN of 11, creatinine of 0.7, glucose of 107, calcium of 8.2. AST, ALT within normal limits. LDH is 260. Total protein of 7.7, albumin of 3.1. UA revealed specific gravity of 1.016, protein 2+, ketones 2+, blood 1+, wbc . CBC revealed WBC count of 11,000, hemoglobin of 12.7, hematocrit of 37, platelet count of 160. Chest x-ray revealed bilateral patchy infiltrates. ASSESSMENT: 1. Hyponatremia. 2. Hypocalcemia. 3. Acute COVID infection. PLAN: The plan for the patient is to continue the patient with IV fluids. Check the vitamin D level for evaluation of hypocalcemia. Monitor renal function and electrolytes closely. Replace electrolytes as needed. Again, I would like to thank Dr. Carolina for letting me participate in the care of this patient. [facility] Shin Romano DR: LUI JOB#: [id number] CC:
[2020-03-07] VITALS (7 sets, daily range): BP systolic 106–135; BP diastolic 50–84
--- NOTE | 2020-03-07 01:00 | NUR ---
ED Nurse Note: Patient asleep on bed. No signs of SOB/ noted
--- NOTE | 2020-03-07 03:10 | NUR ---
ED Nurse Note: Patient transferred to [facility] [place]
--- NOTE | 2020-03-07 04:54 | NUR ---
ED Nurse Note: Admit labs sent to lab for workup
[2020-03-07 05:06] LABS: BASOPHILS % (AUTO) 0.5 % (0.0-2.0); HEMATOCRIT 32.9 % (37.0-47.0); HEMOGLOBIN 11.8 G/DL (12.0-16.0); LYMPHOCYTES % (AUTO) 9.9 % (20.0-45.0); MEAN CORPUSCULAR VOLUME 82 FL (80-99); MONOCYTES % (AUTO) 5.3 % (1.0-10.0); NEUTROPHILS % (AUTO) 84.3 % (45.0-75.0); PLATELET COUNT 116 K/UL (150-450); RED CELL DISTRIBUTION WIDTH 13.4 % (11.6-14.8); WHITE BLOOD COUNT 12.3 K/UL (4.8-10.8)
[2020-03-07 05:16] LABS: ANION GAP 7 mmol/L (5-15); BLOOD UREA NITROGEN 17 mg/dL (7-18); CARBON DIOXIDE 26 MMOL/L (21-32); CHLORIDE 106 MMOL/L (98-107); CREATININE 0.7 MG/DL (0.55-1.30); POTASSIUM 4.2 MMOL/L (3.5-5.1); SODIUM 139 MMOL/L (136-145)
[2020-03-07 05:21] LABS: ALANINE AMINOTRANSFERASE 24 U/L (12-78); ALBUMIN 2.5 G/DL (3.4-5.0); ALBUMIN/GLOBULIN RATIO 0.6 (1.0-2.7); ALKALINE PHOSPHATASE 64 U/L (46-116); ASPARTATE AMINO TRANSFERASE 29 U/L (15-37); BILIRUBIN,TOTAL 0.4 MG/DL (0.2-1.0)
--- NOTE | 2020-03-07 06:08 | NUR ---
ED Nurse Note: Spoke to MIGUEL ANGEL pts daughter and gave an update
--- NOTE | 2020-03-07 07:05 | NUR ---
ED Nurse Note: Received report from GEMA Smalls. Patient sleeping, on 6L via NC satting 98%, VSS at this time.
--- NOTE | 2020-03-07 07:20 | NUR ---
ED Nurse Note: Report given to DOROTHY RIBEIRO
[2020-03-07] MEDS: Enoxaparin 40mg Inj SUBQ SCH (08:53)
--- NOTE | 2020-03-07 09:07 | NUR ---
ED Nurse Note: madications due were administered, breakfast tray was provided
--- NOTE | 2020-03-07 13:43 | General Progress Note ---
Subjective Allergies: Coded Allergies: PENICILLINS (Verified Allergy, Unknown, 03/05/20) Objective Last 24 Hour Vital Signs Date Time Temp Pulse Resp B/P (MAP) Pulse Ox O2 Delivery O2 Flow Rate FiO2 03/07/20 09:07 98.6 70 20 130/80 100 Nasal Cannula 6.0 03/07/20 07:01 98.7 62 20 127/82 100 Nasal Cannula 6.0 03/07/20 04:15 98.7 65 20 118/84 100 Nasal Cannula 6.0 03/07/20 00:10 98.7 66 21 131/67 100 Nasal Cannula 6.0 03/06/20 20:00 98.7 70 18 125/76 100 Nasal Cannula 6.0 03/06/20 18:06 98.9 68 15 121/88 100 Nasal Cannula 6.0 Laboratory Tests 03/07/20 04:44: White Blood Count 12.3H, Red Blood Count 4.00L, Hemoglobin 11.8L, Hematocrit 32.9L, Mean Corpuscular Volume 82, Mean Corpuscular Hemoglobin 29.4, Mean Corpuscular Hemoglobin Concent 35.7, Red Cell Distribution Width 13.4, Platelet Count 116L, Mean Platelet Volume 12.0H, Neutrophils (%) (Auto) 84.3H, Lymphocytes (%) (Auto) 9.9L, Monocytes (%) (Auto) 5.3, Eosinophils (%) (Auto) 0.0, Basophils (%) (Auto) 0.5, Sodium Level 139, Potassium Level 4.2, Chloride Level 106, Carbon Dioxide Level 26, Anion Gap 7, Blood Urea Nitrogen 17, Creatinine 0.7, Estimat Glomerular Filtration Rate > 60, Glucose Level 140H, Calcium Level 8.0L, Total Bilirubin 0.4, Aspartate Amino Transf (AST/SGOT) 29, Alanine Aminotransferase (ALT/SGPT) 24, Alkaline Phosphatase 64, Total Protein 6.9, Albumin 2.5L, Globulin 4.4, Albumin/Globulin Ratio 0.6L Height (Feet): 5 Height (Inches): 4.00 Weight (Pounds): 180 Assessment/Plan Status: stable Assessment/Plan: S, O: I am feeling better PHYSICAL EXAMINATION:HEAD AND NECK: Atraumatic and normocephalic. CHEST: Diffuse bronchial breathing sounds. HEART: S1, S2. Regular rate and rhythm. ABDOMEN: Soft. No organomegaly. MUSCULOSKELETAL: No gross lateralized motor deficit. NEUROLOGY: Patient is awake, alert, oriented x3. Meds: reviewed and reconciled ASSESSMENT AND PLAN: 1. COVID positive pneumonia. 2. Anemia. 3. Hyponatremia. 4. Acute hypoxemic respiratory failure secondary to #1. 5. GI and DVT prophylaxes. PLAN OF CARE: C/w Remdesivir Notes from ID reviewed Kevin Carolina MD Mar 07, 2020 13:43
--- NOTE | 2020-03-07 13:51 | NUR ---
ED Nurse Note: Lunch tray was provided, paztient stated feels better, all VSS at this time
--- NOTE | 2020-03-07 14:30 | Infectious Diseases Prog Note ---
Assessment/Plan Problems: (1) COVID-19 virus infection Assessment & Plan: with hypoxemia , continue remdisvir for 5 days and decadron for 10 days , keep in enhanced droplets isolation (2) Pneumonia due to COVID-19 virus Assessment & Plan: continue remdisvir and decadron , monitor O2 sat and CXR , SEND SPUTUM CULTURE (3) Hypoxia Assessment & Plan: improving due to the above, continue oxygen and antivirals with steroids (4) Fever due to COVID-19 Assessment & Plan: improving continue tylenol (5) Acute hypoxemic respiratory failure due to COVID-19 Assessment & Plan: on remdisvir and decadron , continue high flow oxygen Subjective Constitutional: Reports: no symptoms HEENT: Reports: no symptoms Respiratory: Reports: dry cough Breasts: Reports: no symptoms Cardiovascular: Reports: no symptoms Gastrointestinal/Abdominal: Reports: no symptoms Genitourinary: Reports: no symptoms Neurologic: Reports: no symptoms Psychiatric: Reports: no symptoms Skin: Reports: no symptoms Endocrine: Reports: no symptoms Hematologic: Reports: no symptoms Musculoskeletal: Reports: no symptoms Allergies: Coded Allergies: PENICILLINS (Verified Allergy, Unknown, 03/05/20) she was feeling better overall and downgraded to nasal cannula and tolerated oral intake well Objective Last 24 Hour Vital Signs Date Time Temp Pulse Resp B/P (MAP) Pulse Ox O2 Delivery O2 Flow Rate FiO2 03/07/20 13:50 98.8 74 20 135/78 100 Nasal Cannula 6.0 03/07/20 09:07 98.6 70 20 130/80 100 Nasal Cannula 6.0 03/07/20 07:01 98.7 62 20 127/82 100 Nasal Cannula 6.0 03/07/20 04:15 98.7 65 20 118/84 100 Nasal Cannula 6.0 03/07/20 00:10 98.7 66 21 131/67 100 Nasal Cannula 6.0 03/06/20 20:00 98.7 70 18 125/76 100 Nasal Cannula 6.0 03/06/20 18:06 98.9 68 15 121/88 100 Nasal Cannula 6.0 Height (Feet): 5 Height (Inches): 4.00 Weight (Pounds): 180 General Appearance: WD/WN, no acute distress HEENT: normocephalic, atraumatic, anicteric, mucous membranes moist, PERRL Respiratory/Chest: chest wall non-tender, no respiratory distress, no accessory muscle use, decreased breath sounds Cardiovascular: normal peripheral pulses, normal rate, regular rhythm, no gallop/murmur, no JVD Abdomen: normal bowel sounds, soft, non tender, no organomegaly, non distended, no mass, no scars Extremities: no cyanosis, no clubbing Skin: no rash, no lesions, no ulcers Neurologic/Psychiatric: torch heater II-XII grossly normal, no motor/sensory deficits, alert, oriented x 3, responsive Lymphatic: no neck adenopathy, no groin adenopathy, no axillary adenopathy Musculoskeletal: normal muscle bulk, no effusion Microbiology Date/Time Source Procedure Growth Status 03/05/20 14:40 Blood Blood Culture - Preliminary NO GROWTH AFTER 24 HOURS Resulted 03/05/20 14:25 Blood Blood Culture - Preliminary NO GROWTH AFTER 24 HOURS Resulted Laboratory Tests Test 03/07/20 04:44 White Blood Count 12.3 K/UL (4.8-10.8) H Red Blood Count 4.00 M/UL (4.20-5.40) L Hemoglobin 11.8 G/DL (12.0-16.0) L Hematocrit 32.9 % (37.0-47.0) L Mean Corpuscular Volume 82 FL (80-99) Mean Corpuscular Hemoglobin 29.4 PG (27.0-31.0) Mean Corpuscular Hemoglobin Concent 35.7 G/DL (32.0-36.0) Red Cell Distribution Width 13.4 % (11.6-14.8) Platelet Count 116 K/UL (150-450) L Mean Platelet Volume 12.0 FL (6.5-10.1) H Neutrophils (%) (Auto) 84.3 % (45.0-75.0) H Lymphocytes (%) (Auto) 9.9 % (20.0-45.0) L Monocytes (%) (Auto) 5.3 % (1.0-10.0) Eosinophils (%) (Auto) 0.0 % (0.0-3.0) Basophils (%) (Auto) 0.5 % (0.0-2.0) Sodium Level 139 MMOL/L (136-145) Potassium Level 4.2 MMOL/L (3.5-5.1) Chloride Level 106 MMOL/L (98-107) Carbon Dioxide Level 26 MMOL/L (21-32) Anion Gap 7 mmol/L (5-15) Blood Urea Nitrogen 17 mg/dL (7-18) Creatinine 0.7 MG/DL (0.55-1.30) Estimat Glomerular Filtration Rate > 60 mL/min (>60) Glucose Level 140 MG/DL (74-106) H Calcium Level 8.0 MG/DL (8.5-10.1) L Total Bilirubin 0.4 MG/DL (0.2-1.0) Aspartate Amino Transf (AST/SGOT) 29 U/L (15-37) Alanine Aminotransferase (ALT/SGPT) 24 U/L (12-78) Alkaline Phosphatase 64 U/L (46-116) Total Protein 6.9 G/DL (6.4-8.2) Albumin 2.5 G/DL (3.4-5.0) L Globulin 4.4 g/dL Albumin/Globulin Ratio 0.6 (1.0-2.7) L Current Medications Medications (Trade) Dose Ordered Sig/Jennifer Route PRN Reason Start Time Stop Time Status Last Admin Dose Admin Acetaminophen (Tylenol) 650 mg Q4H PRN ORAL Mild Pain (Pain Scale 1-3) 03/05/20 20:30 04/04/20 20:29 Albuterol/ Ipratropium (Albuterol/ Ipratropium) 3 ml QID PRN HHN Shortness of Breath 03/05/20 20:30 03/10/20 20:29 Azithromycin 500 mg/Dextrose 275 ml @ 275 mls/hr Q24H IV 03/06/20 15:30 03/11/20 15:29 03/06/20 15:42 Ceftriaxone Sodium 1 gm/ Dextrose 55 ml @ 110 mls/hr Q24H IVPB 03/05/20 15:30 03/12/20 15:29 03/06/20 15:42 Dexamethasone Sodium Phosphate (Decadron 4mg/ml vial) 6 mg DAILY IVP 03/06/20 09:00 03/15/20 23:23 03/07/20 08:53 Enoxaparin Sodium (Lovenox) 40 mg Q24H SUBQ 03/06/20 09:00 06/04/20 08:59 03/07/20 08:53 Lorazepam (Ativan 2mg/ml 1ml) 0.5 mg Q4H PRN IV For Anxiety 03/05/20 20:30 03/12/20 20:29 Morphine Sulfate (Morphine Sulfate) 2 mg TID PRN IVP Moderate Pain (Pain Scale 4-6) 03/05/20 20:30 03/12/20 20:29 Ondansetron HCl (Zofran) 4 mg Q6H PRN IVP Nausea & Vomiting 03/05/20 20:30 04/04/20 20:29 Remdesivir 100 mg/ Sodium Chloride 250 ml @ 250 mls/hr Q24H IV 03/06/20 21:00 03/09/20 21:59 03/06/20 21:03 Zolpidem Tartrate (Ambien) 5 mg HSPRN PRN ORAL Insomnia 03/05/20 20:30 03/12/20 20:29 Mandi Bella M.D. Mar 07, 2020 14:30
--- NOTE | 2020-03-07 16:33 | NUR ---
ED Nurse Note: Report was given to GEMA Alcaraz
--- NOTE | 2020-03-07 17:00 | NUR ---
ED Nurse Note: Patient was admited to TELE unit due to COVID pneumonia. Patient was transfered to the unit via gurney by ACLS protocol, with all belongimgs. Oatient AAO x4, VSS at this time, remain on 5 L via NC
--- NOTE | 2020-03-07 17:10 | NUR ---
NURSE NOTES: Received patient from Er via hospital bed. VS taken, on 5 L NC. Pt oriented to room and call ight with return demonstration. Heart monitor placed on pt.
--- NOTE | 2020-03-07 19:22 | NUR ---
NURSE NOTES: Received report from GEMA Alcaraz. Pt is A/O x3 and verbally responsive but mostly Nepali. No SOB or acute distress. Pt is on NC @ 5L with saturation @ 94%. No pain noted. Bed in lowest position with side rails x 2 and locked. Educated to use call light before walking to the bathroom. Will continue plan of care.
--- NOTE | 2020-03-07 19:29 | NUR ---
NURSE HAND-OFF REPORT: Important Events on Shift:[admit to tele] Patient Status: [FULL CODE] Diet: [regular] Pending Orders: [] Pending Results/Labs:[] Pending MD notification:[] Latest Vital Signs: Temperature 97.9 , Pulse 60 , B/P 106 /50 , Respiratory Rate 22 , O2 SAT 92 , Nasal Cannula, O2 Flow Rate 5.0 . Vital Sign Comment: [] EKG Rhythm: Sinus Rhythm Rhythm change?: MD Notified?: - MD Response: Latest Villarreal Fall Score: 20 Fall Risk: Low Risk Safety Measures: Call light Within Reach, Bed Alarm , Side Rails Side Rails x2, Bed position Low and Locked. Fall Precautions: Yellow Socks Patient Fall Education Report given to [Rossana RN].
[2020-03-07] MEDS: Maintenance Dose:Remdesivir 100mg/NS 230ml x 4 Doses IV SCH ×2 (21:18)
--- NOTE | 2020-03-07 23:57 | Cardiology Progress Note ---
Assessment/Plan Assessment/Plan 1. Sinus tachycardia. This is due to hypoxemia, continue treatment of COVID-19 infection including full dose of Lovenox. 2. COVID-19 pneumonitis. 3. Acute hypoxemic respiratory failure. Subjective Subjective Sinus bradycardia at rate of 55. Objective Last 24 Hour Vital Signs Date Time Temp Pulse Resp B/P (MAP) Pulse Ox O2 Delivery O2 Flow Rate FiO2 03/07/20 20:00 98.1 55 20 118/55 (76) 94 03/07/20 20:00 59 03/07/20 17:18 Nasal Cannula 5.0 03/07/20 17:15 97.9 60 22 106/50 (68) 92 03/07/20 17:00 98.9 87 24 134/89 100 Nasal Cannula 5.0 03/07/20 13:50 98.8 74 20 135/78 100 Nasal Cannula 6.0 03/07/20 09:07 98.6 70 20 130/80 100 Nasal Cannula 6.0 03/07/20 07:01 98.7 62 20 127/82 100 Nasal Cannula 6.0 03/07/20 04:15 98.7 65 20 118/84 100 Nasal Cannula 6.0 03/07/20 00:10 98.7 66 21 131/67 100 Nasal Cannula 6.0 Laboratory Tests Test 03/07/20 04:44 White Blood Count 12.3 K/UL (4.8-10.8) H Red Blood Count 4.00 M/UL (4.20-5.40) L Hemoglobin 11.8 G/DL (12.0-16.0) L Hematocrit 32.9 % (37.0-47.0) L Mean Corpuscular Volume 82 FL (80-99) Mean Corpuscular Hemoglobin 29.4 PG (27.0-31.0) Mean Corpuscular Hemoglobin Concent 35.7 G/DL (32.0-36.0) Red Cell Distribution Width 13.4 % (11.6-14.8) Platelet Count 116 K/UL (150-450) L Mean Platelet Volume 12.0 FL (6.5-10.1) H Neutrophils (%) (Auto) 84.3 % (45.0-75.0) H Lymphocytes (%) (Auto) 9.9 % (20.0-45.0) L Monocytes (%) (Auto) 5.3 % (1.0-10.0) Eosinophils (%) (Auto) 0.0 % (0.0-3.0) Basophils (%) (Auto) 0.5 % (0.0-2.0) Sodium Level 139 MMOL/L (136-145) Potassium Level 4.2 MMOL/L (3.5-5.1) Chloride Level 106 MMOL/L (98-107) Carbon Dioxide Level 26 MMOL/L (21-32) Anion Gap 7 mmol/L (5-15) Blood Urea Nitrogen 17 mg/dL (7-18) Creatinine 0.7 MG/DL (0.55-1.30) Estimat Glomerular Filtration Rate > 60 mL/min (>60) Glucose Level 140 MG/DL (74-106) H Calcium Level 8.0 MG/DL (8.5-10.1) L Total Bilirubin 0.4 MG/DL (0.2-1.0) Direct Bilirubin 0.1 MG/DL (0.0-0.3) Aspartate Amino Transf (AST/SGOT) 29 U/L (15-37) Alanine Aminotransferase (ALT/SGPT) 24 U/L (12-78) Alkaline Phosphatase 64 U/L (46-116) Total Protein 6.9 G/DL (6.4-8.2) Albumin 2.5 G/DL (3.4-5.0) L Globulin 4.4 g/dL Albumin/Globulin Ratio 0.6 (1.0-2.7) L Microbiology Date/Time Source Procedure Growth Status 03/05/20 14:40 Blood Blood Culture - Preliminary NO GROWTH AFTER 24 HOURS Resulted 03/05/20 14:25 Blood Blood Culture - Preliminary NO GROWTH AFTER 24 HOURS Resulted Objective HEENT: Atraumatic and normocephalic. Anicteric. Pupils are equal, round, and reactive to light and accommodation. Extraocular muscles intact. NECK: JVP less than 5 cm. No carotid bruit. Carotid upstrokes 2+ bilaterally. CARDIOVASCULAR SYSTEM: Normal S1, S2. Regular rhythm. Tachycardic. No murmurs, gallops, or rubs. PMI is at fourth intercostal space in midclavicular line. LUNGS: Bibasilar crackles. ABDOMEN: Soft, nontender, nondistended. No hepatosplenomegaly. Positive bowel sounds. EXTREMITIES: No evidence of edema, clubbing, or cyanosis. Breezy Raymond MD Mar 07, 2020 23:57
[2020-03-08] VITALS: BP 112/59
--- NOTE | 2020-03-08 00:02 | NUR ---
NURSE NOTES: Was notified the pt pulse was in the low 40's and at 41 for the lowest. Notified Dr. Raymond regarding her pulse stabilize while asleep was in the 40's. Dr. Raymond answered and notified it was part of the COVID process and to just monitor.
[2020-03-08 04:00] VITALS: BP 114/56
[2020-03-08 05:26] LABS: BASOPHILS % (AUTO) 0.4 % (0.0-2.0); HEMATOCRIT 32.2 % (37.0-47.0); HEMOGLOBIN 11.2 G/DL (12.0-16.0); LYMPHOCYTES % (AUTO) 9.5 % (20.0-45.0); MEAN CORPUSCULAR VOLUME 85 FL (80-99); NEUTROPHILS % (AUTO) 81.1 % (45.0-75.0); PLATELET COUNT 202 K/UL (150-450); RED BLOOD COUNT 3.77 M/UL (4.20-5.40); RED CELL DISTRIBUTION WIDTH 13.3 % (11.6-14.8); WHITE BLOOD COUNT 12.5 K/UL (4.8-10.8)
[2020-03-08 05:40] LABS: ALANINE AMINOTRANSFERASE 18 U/L (12-78); ALBUMIN 2.4 G/DL (3.4-5.0); ALBUMIN/GLOBULIN RATIO 0.6 (1.0-2.7); ALKALINE PHOSPHATASE 61 U/L (46-116); ANION GAP 7 mmol/L (5-15); ASPARTATE AMINO TRANSFERASE 22 U/L (15-37); BILIRUBIN,DIRECT 0.2 MG/DL (0.0-0.3); BILIRUBIN,TOTAL 0.3 MG/DL (0.2-1.0); BLOOD UREA NITROGEN 17 mg/dL (7-18); CALCIUM 8.2 MG/DL (8.5-10.1); CARBON DIOXIDE 26 MMOL/L (21-32); CHLORIDE 107 MMOL/L (98-107); CREATININE 0.6 MG/DL (0.55-1.30); POTASSIUM 4.1 MMOL/L (3.5-5.1); SODIUM 140 MMOL/L (136-145)
--- NOTE | 2020-03-08 07:34 | NUR ---
NURSE HAND-OFF REPORT: Important Events on Shift: Pulse went down to 41 at the lowest and Dr. Raymond contacted and was told to monitor. Patient Status: Stable Diet: Regular Pending Orders: Pending Results/Labs: Pending MD notification: Latest Vital Signs: Temperature 97.9 , Pulse 42 , B/P 114 /56 , Respiratory Rate 20 , O2 SAT 90 , Nasal Cannula, O2 Flow Rate 5.0 . Vital Sign Comment: EKG Rhythm: Sinus Bradycardia Rhythm change?: N MD Notified?: Y -Dr. Segundo OSHEA Response: Latest Villarreal Fall Score: 20 Fall Risk: Low Risk Safety Measures: Call light Within Reach, Bed Alarm , Side Rails Side Rails x2, Bed position Low and Locked. Fall Precautions: Yellow Socks Yellow Gown Patient Fall Education Report given to Fouzia.
--- NOTE | 2020-03-08 07:35 | NUR ---
NURSE NOTES: Received patient in bed awake. O2 via NC at 6LPM. Not in acute distress. IV line intact and patent. HOB elevated. Bed locked in low position. Call light within reach. Will continue plan of care.
[2020-03-08 08:00] VITALS: BP 119/58
[2020-03-08] MEDS ORDERED: NS 275ml ONE (09:19)
[2020-03-08] MEDS ORDERED: Tubing IV Secondary IV ONE (09:19)
[2020-03-08] MEDS: cefTRIAXone 1 GM in D5W 55 ML IVPB SCH (09:59)
[2020-03-08] MEDS: Enoxaparin 40mg Inj SUBQ SCH (10:01)
[2020-03-08] MEDS: Azithromycin 500 MG in D5W 275 ML IV SCH (11:09)
--- NOTE | 2020-03-08 11:18 | General Progress Note ---
Subjective Allergies: Coded Allergies: PENICILLINS (Verified Allergy, Unknown, 03/05/20) Objective Last 24 Hour Vital Signs Date Time Temp Pulse Resp B/P (MAP) Pulse Ox O2 Delivery O2 Flow Rate FiO2 03/08/20 09:28 92 Nasal Cannula 5.0 40 03/08/20 08:00 98.0 54 22 119/58 (78) 91 03/08/20 04:00 97.9 48 20 114/56 (75) 90 03/08/20 04:00 42 03/08/20 00:00 98.0 51 20 112/59 (76) 91 03/08/20 00:00 52 03/07/20 21:00 Nasal Cannula 5.0 03/07/20 20:19 94 Nasal Cannula 5.0 40 03/07/20 20:00 98.1 55 20 118/55 (76) 94 03/07/20 20:00 59 03/07/20 17:18 Nasal Cannula 5.0 03/07/20 17:15 97.9 60 22 106/50 (68) 92 03/07/20 17:00 98.9 87 24 134/89 100 Nasal Cannula 5.0 03/07/20 13:50 98.8 74 20 135/78 100 Nasal Cannula 6.0 l Intake and Output 03/07/20 03/08/20 19:00 07:00 Intake Total 200 ml 720 ml Balance 200 ml 720 ml Intake Oral 200 ml 720 ml # Voids 1 2 # Bowel Movements 1 Laboratory Tests 03/08/20 04:40: White Blood Count 12.5H, Red Blood Count 3.77L, Hemoglobin 11.2L, Hematocrit 32.2L, Mean Corpuscular Volume 85, Mean Corpuscular Hemoglobin 29.6, Mean Corpuscular Hemoglobin Concent 34.7, Red Cell Distribution Width 13.3, Platelet Count 202#, Mean Platelet Volume 9.4, Neutrophils (%) (Auto) 81.1H, Lymphocytes (%) (Auto) 9.5L, Monocytes (%) (Auto) 9.0, Eosinophils (%) (Auto) 0.0, Basophils (%) (Auto) 0.4, Sodium Level 140, Potassium Level 4.1, Chloride Level 107, Carbon Dioxide Level 26, Anion Gap 7, Blood Urea Nitrogen 17, Creatinine 0.6, Estimat Glomerular Filtration Rate > 60, Glucose Level 121H, Calcium Level 8.2L, Total Bilirubin 0.3, Direct Bilirubin 0.2, Aspartate Amino Transf (AST/SGOT) 22, Alanine Aminotransferase (ALT/SGPT) 18, Alkaline Phosphatase 61, Total Protein 6.5, Albumin 2.4L, Globulin 4.1, Albumin/Globulin Ratio 0.6L Height (Feet): 5 Height (Inches): 4.00 Weight (Pounds): 180 Assessment/Plan Status: stable Assessment/Plan: S, O: I am feeling better PHYSICAL EXAMINATION:HEAD AND NECK: Atraumatic and normocephalic. CHEST: Diffuse bronchial breathing sounds. HEART: S1, S2. Regular rate and rhythm. ABDOMEN: Soft. No organomegaly. MUSCULOSKELETAL: No gross lateralized motor deficit. NEUROLOGY: Patient is awake, alert, oriented x3. Meds: reviewed and reconciled ASSESSMENT AND PLAN: 1. COVID positive pneumonia. 2. Anemia. 3. Hyponatremia. 4. Acute hypoxemic respiratory failure secondary to #1. 5. GI and DVT prophylaxes. PLAN OF CARE: C/w Remdesivir Notes from ID and pulmonary reviewed Kevin Carolina MD Mar 08, 2020 11:18
[2020-03-08 12:00] VITALS: BP 115/55
--- NOTE | 2020-03-08 13:00 | NUR ---
NURSE NOTES: IV line leaking. Removed and reinserted to right wrist g22.
--- NOTE | 2020-03-08 14:52 | NUR ---
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 POSITIVE COVID TEST ON 03/02 SI: RESP FAILURE COVID PNA HYPOXIA T. 102.8 HR 108 RR 16 B/P 112/35 NRM FIO2 100% CXR= PULMONARY OPACITIES PROBABLE PNA IS: ROCEPHIN IV DECADRON IV AZITHROMYCIN IV ADMITTED TO TELE TELE STATUS DCP RETURN HOME
[2020-03-08 16:00] VITALS: BP 120/57
--- NOTE | 2020-03-08 16:33 | Infectious Diseases Prog Note ---
Assessment/Plan Problems: (1) COVID-19 virus infection Assessment & Plan: with hypoxemia , continue remdisvir for 5 days and decadron for 10 days , keep in enhanced droplets isolation (2) Pneumonia due to COVID-19 virus Assessment & Plan: continue remdisvir and decadron , monitor O2 sat and CXR , SEND SPUTUM CULTURE (3) Hypoxia Assessment & Plan: improving due to the above, continue oxygen and antivirals with steroids (4) Fever due to COVID-19 Assessment & Plan: improving continue tylenol (5) Acute hypoxemic respiratory failure due to COVID-19 Assessment & Plan: on remdisvir and decadron , continue high flow oxygen Subjective Constitutional: Reports: no symptoms HEENT: Reports: no symptoms Respiratory: Reports: dry cough Breasts: Reports: no symptoms Cardiovascular: Reports: no symptoms Gastrointestinal/Abdominal: Reports: no symptoms Genitourinary: Reports: no symptoms Neurologic: Reports: no symptoms Psychiatric: Reports: no symptoms Skin: Reports: no symptoms Endocrine: Reports: no symptoms Hematologic: Reports: no symptoms Musculoskeletal: Reports: no symptoms Allergies: Coded Allergies: PENICILLINS (Verified Allergy, Unknown, 03/05/20) she was feeling better satting well on nasal cannula and tolerated oral intake well Objective Last 24 Hour Vital Signs Date Time Temp Pulse Resp B/P (MAP) Pulse Ox O2 Delivery O2 Flow Rate FiO2 03/08/20 12:00 53 03/08/20 12:00 97.9 57 18 115/55 (75) 92 03/08/20 09:28 92 Nasal Cannula 5.0 40 03/08/20 09:00 Nasal Cannula 5.0 03/08/20 08:00 98.0 54 22 119/58 (78) 91 03/08/20 08:00 56 03/08/20 04:00 97.9 48 20 114/56 (75) 90 03/08/20 04:00 42 03/08/20 00:00 98.0 51 20 112/59 (76) 91 03/08/20 00:00 52 03/07/20 21:00 Nasal Cannula 5.0 03/07/20 20:19 94 Nasal Cannula 5.0 40 03/07/20 20:00 98.1 55 20 118/55 (76) 94 03/07/20 20:00 59 03/07/20 17:18 Nasal Cannula 5.0 03/07/20 17:15 97.9 60 22 106/50 (68) 92 03/07/20 17:00 98.9 87 24 134/89 100 Nasal Cannula 5.0 Height (Feet): 5 Height (Inches): 4.00 Weight (Pounds): 180 General Appearance: WD/WN, no acute distress HEENT: normocephalic, atraumatic, anicteric, mucous membranes moist, PERRL Respiratory/Chest: chest wall non-tender, no respiratory distress, no accessory muscle use, crackles/rales, rhonchi - bilaterally Cardiovascular: normal peripheral pulses, normal rate, regular rhythm, no gallop/murmur, no JVD Abdomen: normal bowel sounds, soft, non tender, no organomegaly, non distended, no mass, no scars Genitourinary: normal external genitalia Extremities: no cyanosis, no clubbing Skin: no rash, no lesions, no ulcers Neurologic/Psychiatric: event manager II-XII grossly normal, alert, oriented x 3, responsive Lymphatic: no neck adenopathy, no groin adenopathy Musculoskeletal: normal muscle bulk, no effusion Laboratory Tests Test 03/08/20 04:40 White Blood Count 12.5 K/UL (4.8-10.8) H Red Blood Count 3.77 M/UL (4.20-5.40) L Hemoglobin 11.2 G/DL (12.0-16.0) L Hematocrit 32.2 % (37.0-47.0) L Mean Corpuscular Volume 85 FL (80-99) Mean Corpuscular Hemoglobin 29.6 PG (27.0-31.0) Mean Corpuscular Hemoglobin Concent 34.7 G/DL (32.0-36.0) Red Cell Distribution Width 13.3 % (11.6-14.8) Platelet Count 202 K/UL (150-450) # Mean Platelet Volume 9.4 FL (6.5-10.1) Neutrophils (%) (Auto) 81.1 % (45.0-75.0) H Lymphocytes (%) (Auto) 9.5 % (20.0-45.0) L Monocytes (%) (Auto) 9.0 % (1.0-10.0) Eosinophils (%) (Auto) 0.0 % (0.0-3.0) Basophils (%) (Auto) 0.4 % (0.0-2.0) Sodium Level 140 MMOL/L (136-145) Potassium Level 4.1 MMOL/L (3.5-5.1) Chloride Level 107 MMOL/L (98-107) Carbon Dioxide Level 26 MMOL/L (21-32) Anion Gap 7 mmol/L (5-15) Blood Urea Nitrogen 17 mg/dL (7-18) Creatinine 0.6 MG/DL (0.55-1.30) Estimat Glomerular Filtration Rate > 60 mL/min (>60) Glucose Level 121 MG/DL (74-106) H Calcium Level 8.2 MG/DL (8.5-10.1) L Total Bilirubin 0.3 MG/DL (0.2-1.0) Direct Bilirubin 0.2 MG/DL (0.0-0.3) Aspartate Amino Transf (AST/SGOT) 22 U/L (15-37) Alanine Aminotransferase (ALT/SGPT) 18 U/L (12-78) Alkaline Phosphatase 61 U/L (46-116) Total Protein 6.5 G/DL (6.4-8.2) Albumin 2.4 G/DL (3.4-5.0) L Globulin 4.1 g/dL Albumin/Globulin Ratio 0.6 (1.0-2.7) L Current Medications Medications (Trade) Dose Ordered Sig/Jennifer Route PRN Reason Start Time Stop Time Status Last Admin Dose Admin Acetaminophen (Tylenol) 650 mg Q4H PRN ORAL Mild Pain (Pain Scale 1-3) 03/05/20 20:30 04/04/20 20:29 Albuterol/ Ipratropium (Albuterol/ Ipratropium) 3 ml QID PRN HHN Shortness of Breath 03/05/20 20:30 03/10/20 20:29 Azithromycin 500 mg/Dextrose 275 ml @ 275 mls/hr Q24H IV 03/08/20 11:00 03/12/20 10:59 03/08/20 11:09 Ceftriaxone Sodium 1 gm/ Dextrose 55 ml @ 110 mls/hr Q24H IVPB 03/08/20 10:00 03/14/20 09:59 03/08/20 09:59 Dexamethasone Sodium Phosphate (Decadron 4mg/ml vial) 6 mg DAILY IVP 03/06/20 09:00 03/15/20 23:23 03/08/20 09:59 Enoxaparin Sodium (Lovenox) 40 mg Q24H SUBQ 03/06/20 09:00 06/04/20 08:59 03/08/20 10:01 Lorazepam (Ativan 2mg/ml 1ml) 0.5 mg Q4H PRN IV For Anxiety 03/05/20 20:30 03/12/20 20:29 Morphine Sulfate (Morphine Sulfate) 2 mg TID PRN IVP Moderate Pain (Pain Scale 4-6) 03/05/20 20:30 03/12/20 20:29 Ondansetron HCl (Zofran) 4 mg Q6H PRN IVP Nausea & Vomiting 03/05/20 20:30 04/04/20 20:29 Remdesivir 100 mg/ Sodium Chloride 250 ml @ 250 mls/hr Q24H IV 03/06/20 21:00 03/09/20 21:59 03/07/20 21:18 Zolpidem Tartrate (Ambien) 5 mg HSPRN PRN ORAL Insomnia 03/05/20 20:30 03/12/20 20:29 Mandi Bella M.D. Mar 08, 2020 16:33
--- NOTE | 2020-03-08 19:59 | NUR ---
NURSE HAND-OFF REPORT: Important Events on Shift: Patient Status: alert Diet: reg Pending Orders: Pending Results/Labs: Pending MD notification: Latest Vital Signs: Temperature 98.1 , Pulse 61 , B/P 120 /57 , Respiratory Rate 20 , O2 SAT 93 , Nasal Cannula, O2 Flow Rate 5.0 . Vital Sign Comment: EKG Rhythm: Sinus Rhythm Rhythm change?: N MD Notified?: Frances Raymond MD Response: Latest Villarreal Fall Score: 20 Fall Risk: Low Risk Safety Measures: Call light Within Reach, Bed Alarm , Side Rails Side Rails x2, Bed position Low and Locked. Fall Precautions: Yellow Socks Yellow Gown Patient Fall Education Report given to janessa RIBEIRO.
[2020-03-08 20:00] VITALS: BP 107/69
--- NOTE | 2020-03-08 20:00 | NUR ---
NURSE NOTES: Received report from GEMA Fragoso, noted AOX4, arabic speaking, comfortable in bed, On O2 therapy 6L/min via NC, in no acute distress, ambulatory to the bathroom, With peripheral IV site R wrist 22 gauge s/l, intact and patent; call light within reach; side rails x2; bed locked and in low position; will continue to monitor.
[2020-03-08] MEDS: Maintenance Dose:Remdesivir 100mg/NS 230ml x 4 Doses IV SCH ×2 (21:10)
--- NOTE | 2020-03-08 22:33 | Cardiology Progress Note ---
Assessment/Plan Assessment/Plan 1. Sinus tachycardia. This is due to hypoxemia, continue treatment of COVID-19 infection including full dose of Lovenox. 2. COVID-19 pneumonitis. 3. Acute hypoxemic respiratory failure. Subjective Subjective Sinus bradycardia at rate of 50. Objective Last 24 Hour Vital Signs Date Time Temp Pulse Resp B/P (MAP) Pulse Ox O2 Delivery O2 Flow Rate FiO2 03/08/20 20:00 98.1 50 20 107/69 (82) 95 03/08/20 20:00 47 03/08/20 16:00 98.1 60 20 120/57 (78) 93 03/08/20 16:00 61 03/08/20 12:00 53 03/08/20 12:00 97.9 57 18 115/55 (75) 92 03/08/20 09:28 92 Nasal Cannula 5.0 40 03/08/20 09:00 Nasal Cannula 5.0 03/08/20 08:00 98.0 54 22 119/58 (78) 91 03/08/20 08:00 56 03/08/20 04:00 97.9 48 20 114/56 (75) 90 03/08/20 04:00 42 03/08/20 00:00 98.0 51 20 112/59 (76) 91 03/08/20 00:00 52 Intake and Output 03/07/20 03/08/20 19:00 07:00 Intake Total 200 ml 720 ml Balance 200 ml 720 ml Intake Oral 200 ml 720 ml # Voids 1 2 # Bowel Movements 1 Laboratory Tests Test 03/08/20 04:40 White Blood Count 12.5 K/UL (4.8-10.8) H Red Blood Count 3.77 M/UL (4.20-5.40) L Hemoglobin 11.2 G/DL (12.0-16.0) L Hematocrit 32.2 % (37.0-47.0) L Mean Corpuscular Volume 85 FL (80-99) Mean Corpuscular Hemoglobin 29.6 PG (27.0-31.0) Mean Corpuscular Hemoglobin Concent 34.7 G/DL (32.0-36.0) Red Cell Distribution Width 13.3 % (11.6-14.8) Platelet Count 202 K/UL (150-450) # Mean Platelet Volume 9.4 FL (6.5-10.1) Neutrophils (%) (Auto) 81.1 % (45.0-75.0) H Lymphocytes (%) (Auto) 9.5 % (20.0-45.0) L Monocytes (%) (Auto) 9.0 % (1.0-10.0) Eosinophils (%) (Auto) 0.0 % (0.0-3.0) Basophils (%) (Auto) 0.4 % (0.0-2.0) Sodium Level 140 MMOL/L (136-145) Potassium Level 4.1 MMOL/L (3.5-5.1) Chloride Level 107 MMOL/L (98-107) Carbon Dioxide Level 26 MMOL/L (21-32) Anion Gap 7 mmol/L (5-15) Blood Urea Nitrogen 17 mg/dL (7-18) Creatinine 0.6 MG/DL (0.55-1.30) Estimat Glomerular Filtration Rate > 60 mL/min (>60) Glucose Level 121 MG/DL (74-106) H Calcium Level 8.2 MG/DL (8.5-10.1) L Total Bilirubin 0.3 MG/DL (0.2-1.0) Direct Bilirubin 0.2 MG/DL (0.0-0.3) Aspartate Amino Transf (AST/SGOT) 22 U/L (15-37) Alanine Aminotransferase (ALT/SGPT) 18 U/L (12-78) Alkaline Phosphatase 61 U/L (46-116) Total Protein 6.5 G/DL (6.4-8.2) Albumin 2.4 G/DL (3.4-5.0) L Globulin 4.1 g/dL Albumin/Globulin Ratio 0.6 (1.0-2.7) L Objective HEENT: Atraumatic and normocephalic. Anicteric. Pupils are equal, round, and reactive to light and accommodation. Extraocular muscles intact. NECK: JVP less than 5 cm. No carotid bruit. Carotid upstrokes 2+ bilaterally. CARDIOVASCULAR SYSTEM: Normal S1, S2. Regular rhythm. No murmurs, gallops, or rubs. PMI is at fourth intercostal space in midclavicular line. LUNGS: Bibasilar crackles. ABDOMEN: Soft, nontender, nondistended. No hepatosplenomegaly. Positive bowel sounds. EXTREMITIES: No evidence of edema, clubbing, or cyanosis. Breezy Raymond MD Mar 08, 2020 22:33
[2020-03-09] VITALS: BP 114/51
[2020-03-09 04:00] VITALS: BP 111/56
[2020-03-09 05:28] LABS: BASOPHILS % (AUTO) 0.9 % (0.0-2.0); HEMATOCRIT 31.9 % (37.0-47.0); HEMOGLOBIN 11.5 G/DL (12.0-16.0); MEAN CORPUSCULAR VOLUME 82 FL (80-99); MONOCYTES % (AUTO) 11.9 % (1.0-10.0); NEUTROPHILS % (AUTO) 71.2 % (45.0-75.0); PLATELET COUNT 234 K/UL (150-450); RED BLOOD COUNT 3.89 M/UL (4.20-5.40); RED CELL DISTRIBUTION WIDTH 14.4 % (11.6-14.8); WHITE BLOOD COUNT 9.8 K/UL (4.8-10.8)
[2020-03-09 05:42] LABS: ALANINE AMINOTRANSFERASE 22 U/L (12-78); ALBUMIN 2.3 G/DL (3.4-5.0); ALBUMIN/GLOBULIN RATIO 0.5 (1.0-2.7); ALKALINE PHOSPHATASE 60 U/L (46-116); ANION GAP 2 mmol/L (5-15); ASPARTATE AMINO TRANSFERASE 21 U/L (15-37); BILIRUBIN,DIRECT < 0.1 MG/DL (0.0-0.3); BILIRUBIN,TOTAL 0.3 MG/DL (0.2-1.0); BLOOD UREA NITROGEN 14 mg/dL (7-18); CALCIUM 8.1 MG/DL (8.5-10.1); CARBON DIOXIDE 27 MMOL/L (21-32); CHLORIDE 107 MMOL/L (98-107); CREATININE 0.6 MG/DL (0.55-1.30); SODIUM 136 MMOL/L (136-145)
--- NOTE | 2020-03-09 07:10 | NUR ---
NURSE HAND-OFF REPORT: Important Events on Shift: Sinus bradycardia HR=37-50s, easily arousable, asymptomatic, endorsed to AM nurse, Marisa, to f/u with Dr. Raymond Patient Status: AOX4 Diet: Regular diet Pending Orders: N Pending Results/Labs: N Pending MD notification: N Latest Vital Signs: Temperature 98.3 , Pulse 37 , B/P 111 /56 , Respiratory Rate 20 , O2 SAT 97 , Nasal Cannula, O2 Flow Rate 6.0 . Vital Sign Comment: stable EKG Rhythm: Sinus Bradycardia Rhythm change?: N MD Notified?: N MD Response: n/a Latest Villarreal Fall Score: 20 Fall Risk: Low Risk Safety Measures: Call light Within Reach, Bed Alarm , Side Rails Side Rails x2, Bed position Low and Locked. Fall Precautions: Yellow Socks Yellow Gown Patient Fall Education Report given to GEMA Cunningham.
--- NOTE | 2020-03-09 07:39 | NUR ---
NURSE NOTES: Received hand-off report from Windy Loco RN. Patient in stable condition, on nasal cannula 6L, breathing even and unlabored, spO2: 93%, alert and oriented x4. Bed in lowest and locked position, bed alarm on, hall monitor in place, call light within reach.
[2020-03-09 08:00] VITALS: BP 93/71
[2020-03-09] MEDS: cefTRIAXone 1 GM in D5W 55 ML IVPB SCH (09:06)
[2020-03-09] MEDS: Enoxaparin 40mg Inj SUBQ SCH (09:06)
[2020-03-09] MEDS: Azithromycin 500 MG in D5W 275 ML IV SCH (10:24)
--- NOTE | 2020-03-09 10:36 | NUR ---
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
[2020-03-09 12:00] VITALS: BP 105/58
--- NOTE | 2020-03-09 12:45 | Pulmonology Progress Note ---
Subjective ROS Limited/Unobtainable: No Interval Events: none major reported per nursing Constitutional: Reports: no symptoms HEENT: Repors: no symptoms Respiratory: Reports: shortness of breath - improving Cardiovascular: Reports: no symptoms Gastrointestinal/Abdominal: Reports: no symptoms Psychiatric: Reports: no symptoms Skin: Reports: no symptoms Musculoskeletal: Reports: no symptoms Allergies: Coded Allergies: PENICILLINS (Verified Allergy, Unknown, 03/05/20) Objective Last 24 Hour Vital Signs Date Time Temp Pulse Resp B/P (MAP) Pulse Ox O2 Delivery O2 Flow Rate FiO2 03/09/20 08:00 54 03/09/20 08:00 97.3 51 19 93/71 (78) 97 03/09/20 04:00 98.3 46 20 111/56 (74) 97 03/09/20 04:00 37 03/09/20 00:00 97.9 50 20 114/51 (72) 97 48 03/09/20 00:00 40 03/08/20 21:00 Nasal Cannula 6.0 03/08/20 20:00 98.1 50 20 107/69 (82) 95 03/08/20 20:00 47 03/08/20 16:00 98.1 60 20 120/57 (78) 93 03/08/20 16:00 61 Intake and Output 03/08/20 03/09/20 19:00 07:00 Intake Total 360 ml 120 ml Balance 360 ml 120 ml Intake Oral 360 ml 120 ml # Voids 1 2 Objective 03/09 saturating 95% on 6L NC General Appearance: WD/WN, no acute distress HEENT: normocephalic, atraumatic Respiratory: chest wall non-tender Cardiovascular: normal rate, regular rhythm Abdomen: soft, non tender Laboratory Tests 03/09/20 05:00: White Blood Count 9.8, Red Blood Count 3.89L, Hemoglobin 11.5L, Hematocrit 31.9L , Mean Corpuscular Volume 82, Mean Corpuscular Hemoglobin 29.5, Mean Corpuscular Hemoglobin Concent 36.0, Red Cell Distribution Width 14.4, Platelet Count 234, Mean Platelet Volume 10.1, Neutrophils (%) (Auto) 71.2, Lymphocytes (%) (Auto) 16.0L, Monocytes (%) (Auto) 11.9H, Eosinophils (%) (Auto) 0.0, Basophils (%) (Auto) 0.9, Sodium Level 136, Potassium Level 4.0, Chloride Level 107, Carbon Dioxide Level 27, Anion Gap 2L, Blood Urea Nitrogen 14, Creatinine 0.6, Estimat Glomerular Filtration Rate > 60, Glucose Level 116H, Calcium Level 8.1L, Total Bilirubin 0.3, Direct Bilirubin < 0.1, Aspartate Amino Transf (AST/SGOT) 21, Alanine Aminotransferase (ALT/SGPT) 22, Alkaline Phosphatase 60, Total Protein 6.5, Albumin 2.3L, Globulin 4.2, Albumin/Globulin Ratio 0.5L Current Medications Medications (Trade) Dose Ordered Sig/Jennifer Route PRN Reason Start Time Stop Time Status Last Admin Dose Admin Acetaminophen (Tylenol) 650 mg Q4H PRN ORAL Mild Pain (Pain Scale 1-3) 03/05/20 20:30 04/04/20 20:29 Albuterol/ Ipratropium (Albuterol/ Ipratropium) 3 ml QID PRN HHN Shortness of Breath 03/05/20 20:30 03/10/20 20:29 Azithromycin 500 mg/Dextrose 275 ml @ 275 mls/hr Q24H IV 03/08/20 11:00 03/12/20 10:59 03/09/20 10:24 Ceftriaxone Sodium 1 gm/ Dextrose 55 ml @ 110 mls/hr Q24H IVPB 03/08/20 10:00 03/14/20 09:59 03/09/20 09:06 Dexamethasone Sodium Phosphate (Decadron 4mg/ml vial) 6 mg DAILY IVP 03/06/20 09:00 03/15/20 23:23 03/09/20 09:05 Enoxaparin Sodium (Lovenox) 40 mg Q24H SUBQ 03/06/20 09:00 06/04/20 08:59 03/09/20 09:06 Lorazepam (Ativan 2mg/ml 1ml) 0.5 mg Q4H PRN IV For Anxiety 03/05/20 20:30 03/12/20 20:29 Morphine Sulfate (Morphine Sulfate) 2 mg TID PRN IVP Moderate Pain (Pain Scale 4-6) 03/05/20 20:30 03/12/20 20:29 Ondansetron HCl (Zofran) 4 mg Q6H PRN IVP Nausea & Vomiting 03/05/20 20:30 04/04/20 20:29 Remdesivir 100 mg/ Sodium Chloride 250 ml @ 250 mls/hr Q24H IV 03/06/20 21:00 03/09/20 21:59 03/08/20 21:10 Zolpidem Tartrate (Ambien) 5 mg HSPRN PRN ORAL Insomnia 03/05/20 20:30 03/12/20 20:29 Assessment/Plan Assessment/Plan 1. COVID-19 pneumonitis with respiratory distress - currently saturating at 95% on 6L NC. - Continue supplemental oxygen. - On ceftriaxone per Dr. Cordova. - On remdesivir, Decadron per Dr. Bella. - On azithromycin per Dr. Carolina. 2. DVT prophylaxis - on Lovenox. 3. History of fever. 4. Sinus bradycardia - Dr. Tijerina following We will follow carefully. The care for this patient was discussed with my supervising physician. Time spent for this case was approximately 31 minutes. Danny Velazquez Mar 09, 2020 12:45 Lenny Carrasquillo MD Mar 10, 2020 13:50
--- NOTE | 2020-03-09 15:07 | Infectious Diseases Prog Note ---
Assessment/Plan Problems: (1) COVID-19 virus infection Assessment & Plan: with hypoxemia , continue remdisvir for 5 days and decadron for 10 days , keep in enhanced droplets isolation (2) Pneumonia due to COVID-19 virus Assessment & Plan: continue remdisvir and decadron , monitor O2 sat and CXR , SEND SPUTUM CULTURE (3) Hypoxia Assessment & Plan: improving due to the above, continue oxygen and antivirals with steroids (4) Fever due to COVID-19 Assessment & Plan: improving continue tylenol (5) Acute hypoxemic respiratory failure due to COVID-19 Assessment & Plan: on remdisvir and decadron , continue high flow oxygen Subjective Constitutional: Reports: no symptoms HEENT: Reports: no symptoms Respiratory: Reports: no symptoms Breasts: Reports: no symptoms Cardiovascular: Reports: chest pain Gastrointestinal/Abdominal: Reports: no symptoms Genitourinary: Reports: no symptoms Neurologic: Reports: no symptoms Psychiatric: Reports: no symptoms Skin: Reports: no symptoms Endocrine: Reports: no symptoms Hematologic: Reports: no symptoms Musculoskeletal: Reports: no symptoms Allergies: Coded Allergies: PENICILLINS (Verified Allergy, Unknown, 03/05/20) she was feeling okay, satting well on nasal cannula and tolerated oral intake well Objective Last 24 Hour Vital Signs Date Time Temp Pulse Resp B/P (MAP) Pulse Ox O2 Delivery O2 Flow Rate FiO2 03/09/20 13:19 93 Nasal Cannula 5.0 40 03/09/20 12:00 49 03/09/20 12:00 99.7 69 20 105/58 (74) 95 03/09/20 08:00 54 03/09/20 08:00 97.3 51 19 93/71 (78) 97 03/09/20 04:00 98.3 46 20 111/56 (74) 97 03/09/20 04:00 37 03/09/20 00:00 97.9 50 20 114/51 (72) 97 48 03/09/20 00:00 40 03/08/20 21:00 Nasal Cannula 6.0 03/08/20 20:00 98.1 50 20 107/69 (82) 95 03/08/20 20:00 47 03/08/20 16:00 98.1 60 20 120/57 (78) 93 03/08/20 16:00 61 Height (Feet): 5 Height (Inches): 4.00 Weight (Pounds): 180 General Appearance: WD/WN, no acute distress HEENT: normocephalic, atraumatic, anicteric, mucous membranes moist, PERRL Respiratory/Chest: chest wall non-tender, lungs clear, normal breath sounds, no respiratory distress, no accessory muscle use, respiratory distress Cardiovascular: normal peripheral pulses, normal rate, regular rhythm, no gallop/murmur, no JVD Abdomen: normal bowel sounds, soft, non tender, no organomegaly, non distended, no mass Extremities: no cyanosis, no clubbing Skin: no rash, no lesions 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, alert, responsive Lymphatic: no neck adenopathy, no groin adenopathy Musculoskeletal: normal muscle bulk, no effusion Laboratory Tests Test 03/09/20 05:00 White Blood Count 9.8 K/UL (4.8-10.8) Red Blood Count 3.89 M/UL (4.20-5.40) L Hemoglobin 11.5 G/DL (12.0-16.0) L Hematocrit 31.9 % (37.0-47.0) L Mean Corpuscular Volume 82 FL (80-99) Mean Corpuscular Hemoglobin 29.5 PG (27.0-31.0) Mean Corpuscular Hemoglobin Concent 36.0 G/DL (32.0-36.0) Red Cell Distribution Width 14.4 % (11.6-14.8) Platelet Count 234 K/UL (150-450) Mean Platelet Volume 10.1 FL (6.5-10.1) Neutrophils (%) (Auto) 71.2 % (45.0-75.0) Lymphocytes (%) (Auto) 16.0 % (20.0-45.0) L Monocytes (%) (Auto) 11.9 % (1.0-10.0) H Eosinophils (%) (Auto) 0.0 % (0.0-3.0) Basophils (%) (Auto) 0.9 % (0.0-2.0) Sodium Level 136 MMOL/L (136-145) Potassium Level 4.0 MMOL/L (3.5-5.1) Chloride Level 107 MMOL/L (98-107) Carbon Dioxide Level 27 MMOL/L (21-32) Anion Gap 2 mmol/L (5-15) L Blood Urea Nitrogen 14 mg/dL (7-18) Creatinine 0.6 MG/DL (0.55-1.30) Estimat Glomerular Filtration Rate > 60 mL/min (>60) Glucose Level 116 MG/DL (74-106) H Calcium Level 8.1 MG/DL (8.5-10.1) L Total Bilirubin 0.3 MG/DL (0.2-1.0) Direct Bilirubin < 0.1 MG/DL (0.0-0.3) Aspartate Amino Transf (AST/SGOT) 21 U/L (15-37) Alanine Aminotransferase (ALT/SGPT) 22 U/L (12-78) Alkaline Phosphatase 60 U/L (46-116) Total Protein 6.5 G/DL (6.4-8.2) Albumin 2.3 G/DL (3.4-5.0) L Globulin 4.2 g/dL Albumin/Globulin Ratio 0.5 (1.0-2.7) L Current Medications Medications (Trade) Dose Ordered Sig/Jennifer Route PRN Reason Start Time Stop Time Status Last Admin Dose Admin Acetaminophen (Tylenol) 650 mg Q4H PRN ORAL Mild Pain (Pain Scale 1-3) 03/05/20 20:30 04/04/20 20:29 Albuterol/ Ipratropium (Albuterol/ Ipratropium) 3 ml QID PRN HHN Shortness of Breath 03/05/20 20:30 03/10/20 20:29 Azithromycin 500 mg/Dextrose 275 ml @ 275 mls/hr Q24H IV 03/08/20 11:00 03/12/20 10:59 03/09/20 10:24 Ceftriaxone Sodium 1 gm/ Dextrose 55 ml @ 110 mls/hr Q24H IVPB 03/08/20 10:00 03/14/20 09:59 03/09/20 09:06 Dexamethasone Sodium Phosphate (Decadron 4mg/ml vial) 6 mg DAILY IVP 03/06/20 09:00 03/15/20 23:23 03/09/20 09:05 Enoxaparin Sodium (Lovenox) 40 mg Q24H SUBQ 03/06/20 09:00 06/04/20 08:59 03/09/20 09:06 Lorazepam (Ativan 2mg/ml 1ml) 0.5 mg Q4H PRN IV For Anxiety 03/05/20 20:30 03/12/20 20:29 Morphine Sulfate (Morphine Sulfate) 2 mg TID PRN IVP Moderate Pain (Pain Scale 4-6) 03/05/20 20:30 03/12/20 20:29 Ondansetron HCl (Zofran) 4 mg Q6H PRN IVP Nausea & Vomiting 03/05/20 20:30 04/04/20 20:29 Remdesivir 100 mg/ Sodium Chloride 250 ml @ 250 mls/hr Q24H IV 03/06/20 21:00 03/09/20 21:59 03/08/20 21:10 Zolpidem Tartrate (Ambien) 5 mg HSPRN PRN ORAL Insomnia 03/05/20 20:30 03/12/20 20:29 Mandi Bella M.D. Mar 09, 2020 15:07
--- NOTE | 2020-03-09 15:31 | General Progress Note ---
Subjective Allergies: Coded Allergies: PENICILLINS (Verified Allergy, Unknown, 03/05/20) Objective Last 24 Hour Vital Signs Date Time Temp Pulse Resp B/P (MAP) Pulse Ox O2 Delivery O2 Flow Rate FiO2 03/09/20 13:19 93 Nasal Cannula 5.0 40 03/09/20 12:00 49 03/09/20 12:00 99.7 69 20 105/58 (74) 95 03/09/20 08:00 54 03/09/20 08:00 97.3 51 19 93/71 (78) 97 03/09/20 04:00 98.3 46 20 111/56 (74) 97 03/09/20 04:00 37 03/09/20 00:00 97.9 50 20 114/51 (72) 97 48 03/09/20 00:00 40 03/08/20 21:00 Nasal Cannula 6.0 03/08/20 20:00 98.1 50 20 107/69 (82) 95 03/08/20 20:00 47 03/08/20 16:00 98.1 60 20 120/57 (78) 93 03/08/20 16:00 61 Intake and Output 03/08/20 03/09/20 19:00 07:00 Intake Total 360 ml 120 ml Balance 360 ml 120 ml Intake Oral 360 ml 120 ml # Voids 1 2 Laboratory Tests 03/09/20 05:00: White Blood Count 9.8, Red Blood Count 3.89L, Hemoglobin 11.5L, Hematocrit 31.9L , Mean Corpuscular Volume 82, Mean Corpuscular Hemoglobin 29.5, Mean Corpuscular Hemoglobin Concent 36.0, Red Cell Distribution Width 14.4, Platelet Count 234, Mean Platelet Volume 10.1, Neutrophils (%) (Auto) 71.2, Lymphocytes (%) (Auto) 16.0L, Monocytes (%) (Auto) 11.9H, Eosinophils (%) (Auto) 0.0, Basophils (%) (Auto) 0.9, Sodium Level 136, Potassium Level 4.0, Chloride Level 107, Carbon Dioxide Level 27, Anion Gap 2L, Blood Urea Nitrogen 14, Creatinine 0.6, Estimat Glomerular Filtration Rate > 60, Glucose Level 116H, Calcium Level 8.1L, Total Bilirubin 0.3, Direct Bilirubin < 0.1, Aspartate Amino Transf (AST/SGOT) 21, Alanine Aminotransferase (ALT/SGPT) 22, Alkaline Phosphatase 60, Total Protein 6.5, Albumin 2.3L, Globulin 4.2, Albumin/Globulin Ratio 0.5L Height (Feet): 5 Height (Inches): 4.00 Weight (Pounds): 180 Assessment/Plan Status: stable Assessment/Plan: S, O: I am feeling better PHYSICAL EXAMINATION:HEAD AND NECK: Atraumatic and normocephalic. CHEST: Diffuse bronchial breathing sounds. HEART: S1, S2. Regular rate and rhythm. ABDOMEN: Soft. No organomegaly. MUSCULOSKELETAL: No gross lateralized motor deficit. NEUROLOGY: Patient is awake, alert, oriented x3. Meds: reviewed and reconciled ASSESSMENT AND PLAN: 1. COVID positive pneumonia. 2. Anemia. 3. Hyponatremia. 4. Acute hypoxemic respiratory failure secondary to #1. 5. GI and DVT prophylaxes. PLAN OF CARE: C/w Remdesivir Notes from ID and pulmonary reviewed Kevin Carolina MD Mar 09, 2020 15:30
[2020-03-09 16:00] VITALS: BP 139/73
[2020-03-09] MEDS ORDERED: NS 275ml ONE (16:19)
[2020-03-09] MEDS ORDERED: NS 500ML ONE (16:19)
--- NOTE | 2020-03-09 16:38 | Cardiology Progress Note ---
Assessment/Plan Assessment/Plan 1. Hypotension, responded to IV bolus NS, I&O's. 2. Sinus bradycardia, likely related to COVID-19 infection including full dose of Lovenox. 3. COVID-19 pneumonitis. 4. Acute hypoxemic respiratory failure. Subjective Subjective Sinus bradycardia at rate of 49. Objective Last 24 Hour Vital Signs Date Time Temp Pulse Resp B/P (MAP) Pulse Ox O2 Delivery O2 Flow Rate FiO2 03/09/20 13:19 93 Nasal Cannula 5.0 40 03/09/20 12:00 49 03/09/20 12:00 99.7 69 20 105/58 (74) 95 03/09/20 09:00 Nasal Cannula 6.0 03/09/20 08:00 54 03/09/20 08:00 97.3 51 19 93/71 (78) 97 03/09/20 04:00 98.3 46 20 111/56 (74) 97 03/09/20 04:00 37 03/09/20 00:00 97.9 50 20 114/51 (72) 97 48 03/09/20 00:00 40 03/08/20 21:00 Nasal Cannula 6.0 03/08/20 20:00 98.1 50 20 107/69 (82) 95 03/08/20 20:00 47 Intake and Output 03/08/20 03/09/20 19:00 07:00 Intake Total 360 ml 120 ml Balance 360 ml 120 ml Intake Oral 360 ml 120 ml # Voids 1 2 Laboratory Tests Test 03/09/20 05:00 White Blood Count 9.8 K/UL (4.8-10.8) Red Blood Count 3.89 M/UL (4.20-5.40) L Hemoglobin 11.5 G/DL (12.0-16.0) L Hematocrit 31.9 % (37.0-47.0) L Mean Corpuscular Volume 82 FL (80-99) Mean Corpuscular Hemoglobin 29.5 PG (27.0-31.0) Mean Corpuscular Hemoglobin Concent 36.0 G/DL (32.0-36.0) Red Cell Distribution Width 14.4 % (11.6-14.8) Platelet Count 234 K/UL (150-450) Mean Platelet Volume 10.1 FL (6.5-10.1) Neutrophils (%) (Auto) 71.2 % (45.0-75.0) Lymphocytes (%) (Auto) 16.0 % (20.0-45.0) L Monocytes (%) (Auto) 11.9 % (1.0-10.0) H Eosinophils (%) (Auto) 0.0 % (0.0-3.0) Basophils (%) (Auto) 0.9 % (0.0-2.0) Sodium Level 136 MMOL/L (136-145) Potassium Level 4.0 MMOL/L (3.5-5.1) Chloride Level 107 MMOL/L (98-107) Carbon Dioxide Level 27 MMOL/L (21-32) Anion Gap 2 mmol/L (5-15) L Blood Urea Nitrogen 14 mg/dL (7-18) Creatinine 0.6 MG/DL (0.55-1.30) Estimat Glomerular Filtration Rate > 60 mL/min (>60) Glucose Level 116 MG/DL (74-106) H Calcium Level 8.1 MG/DL (8.5-10.1) L Total Bilirubin 0.3 MG/DL (0.2-1.0) Direct Bilirubin < 0.1 MG/DL (0.0-0.3) Aspartate Amino Transf (AST/SGOT) 21 U/L (15-37) Alanine Aminotransferase (ALT/SGPT) 22 U/L (12-78) Alkaline Phosphatase 60 U/L (46-116) Total Protein 6.5 G/DL (6.4-8.2) Albumin 2.3 G/DL (3.4-5.0) L Globulin 4.2 g/dL Albumin/Globulin Ratio 0.5 (1.0-2.7) L Objective HEENT: Atraumatic and normocephalic. Anicteric. Pupils are equal, round, and reactive to light and accommodation. Extraocular muscles intact. NECK: JVP less than 5 cm. No carotid bruit. Carotid upstrokes 2+ bilaterally. CARDIOVASCULAR SYSTEM: Normal S1, S2. Regular rhythm. No murmurs, gallops, or rubs. PMI is at fourth intercostal space in midclavicular line. LUNGS: Bibasilar crackles. ABDOMEN: Soft, nontender, nondistended. No hepatosplenomegaly. Positive bowel sounds. EXTREMITIES: No evidence of edema, clubbing, or cyanosis. Breezy Raymond MD Mar 09, 2020 16:38
--- NOTE | 2020-03-09 16:40 | NUR ---
NURSE NOTES: Dr. Raymond present with patient, aware of sinus bradycardia, patient asymptomatic, chest x-ray and 2D echo ordered by Dr. Raymond. Patient remains alert and orientedx4, vitals WNL.
--- NOTE | 2020-03-09 17:22 | Diagnostic Imaging Report ---
EXAM: XR Chest, 1 View CLINICAL HISTORY: DYSPNEA TECHNIQUE: Frontal view of the chest. COMPARISON: 03/05/2020 FINDINGS: Lungs: Similar to mildly increased extensive multifocal pulmonary opacities could represent multifocal pneumonia, pulmonary edema, or inflammation. Low lung volumes with bronchovascular crowding. Pleural space: Unremarkable. No pneumothorax. Heart: Unremarkable. No cardiomegaly. Mediastinum: Unremarkable. Bones/joints: No acute abnormality IMPRESSION: 1. Similar to mildly increased extensive multifocal pulmonary opacities could represent multifocal pneumonia, pulmonary edema, or inflammation. 2. Low lung volumes with bronchovascular crowding. 3. Correlate with presentation.
--- NOTE | 2020-03-09 19:15 | NUR ---
NURSE HAND-OFF REPORT: Important Events on Shift: bradycardic, Dr. Raymond made aware, echo and CXR ordered, awaiting results Patient Status: stable condition, full code, alert and oriented x4 Diet: regular Pending Orders: [] Pending Results/Labs:[] Pending MD notification:[] Latest Vital Signs: Temperature 97.1 , Pulse 48 , B/P 139 /73 , Respiratory Rate 21 , O2 SAT 96 , Nasal Cannula, O2 Flow Rate 5.0 . Vital Sign Comment: [] EKG Rhythm: Sinus Bradycardia Rhythm change?: Y MD Notified?: Y -Dr. Segundo OSHEA Response: Latest Villarreal Fall Score: 20 Fall Risk: Low Risk Safety Measures: Call light Within Reach, Bed Alarm Zone 2, Side Rails Side Rails x2, Bed position Low and Locked. Fall Precautions: Yellow Socks Yellow Gown Patient Fall Education Report given to Bozena Baxter RN.
--- NOTE | 2020-03-09 19:20 | NUR ---
NURSE NOTES: Report received from Marisa RIBEIRO. Patient is in bed asleep repsonsive to voice alert oriented x4. Cymraes speaking. Call light and bedside table within reach. On contact and droplet precautions. Bed at lowest position locked with side rails up. Wiil continue with plan of care.
[2020-03-09 20:00] VITALS: BP 110/65
[2020-03-09] MEDS: Maintenance Dose:Remdesivir 100mg/NS 230ml x 4 Doses IV SCH ×2 (21:04)
[2020-03-10] VITALS: BP 118/67
[2020-03-10 04:00] VITALS: BP 113/56
--- NOTE | 2020-03-10 07:35 | NUR ---
NURSE HAND-OFF REPORT: Important Events on Shift: Patient Status: Stable Diet:Reg Pending Orders: [] Pending Results/Labs:[] Pending MD notification:[] Latest Vital Signs: Temperature 98.2 , Pulse 45 , B/P 113 /56 , Respiratory Rate 20 , O2 SAT 95 , Nasal Cannula, O2 Flow Rate 6.0 . Vital Sign Comment: [] EKG Rhythm: Sinus Rhythm Rhythm change?: N MD Notified?: Frances Raymond MD Response: Latest Villarreal Fall Score: 20 Fall Risk: Low Risk Safety Measures: Call light Within Reach, Bed Alarm Zone 2, Side Rails Side Rails x2, Bed position Low and Locked. Fall Precautions: Yellow Socks Yellow Gown Patient Fall Education Report given to Simba RIBEIRO.
--- NOTE | 2020-03-10 07:42 | NUR ---
NURSE NOTES: RECEIVED AM REPORT. PT IS AWAKE AND ALERT IN BED. VERBALLY RESPONSIVE. RESPIRATION IS EVEN AND UNLABORED WITH O2 @ 5L/MIN VIA NC. HOB IN ELEVATED POSITION. NO ACUTE DISTRESS NOTED AT THIS TIME. CALL LIGHT WITHIN REACH.
[2020-03-10 08:00] VITALS: BP 92/63
[2020-03-10] MEDS: cefTRIAXone 1 GM in D5W 55 ML IVPB SCH (09:14)
[2020-03-10] MEDS: Enoxaparin 40mg Inj SUBQ SCH (09:15)
[2020-03-10] MEDS: Azithromycin 500 MG in D5W 275 ML IV SCH (10:21)
--- NOTE | 2020-03-10 11:10 | NUR ---
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
[2020-03-10 11:58] VITALS: BP 95/73
--- NOTE | 2020-03-10 12:00 | General Progress Note ---
Subjective Allergies: Coded Allergies: PENICILLINS (Verified Allergy, Unknown, 03/05/20) Objective Last 24 Hour Vital Signs Date Time Temp Pulse Resp B/P (MAP) Pulse Ox O2 Delivery O2 Flow Rate FiO2 03/10/20 11:58 98.0 82 21 95/73 (80) 96 82 82 03/10/20 09:00 Nasal Cannula 6.0 03/10/20 08:00 97.1 70 21 92/63 (73) 95 70 70 03/10/20 08:00 58 03/10/20 04:00 62 03/10/20 04:00 98.2 45 20 113/56 (75) 95 03/10/20 00:00 97.4 56 18 118/67 (84) 98 03/10/20 00:00 36 03/09/20 21:00 Nasal Cannula 6.0 03/09/20 20:33 95 Nasal Cannula 4.0 36 03/09/20 20:00 47 03/09/20 20:00 97.3 54 18 110/65 (80) 97 03/09/20 16:00 97.1 48 21 139/73 (95) 96 03/09/20 16:00 48 03/09/20 13:19 93 Nasal Cannula 5.0 40 03/09/20 12:00 49 03/09/20 12:00 99.7 69 20 105/58 (74) 95 Intake and Output 03/09/20 03/10/20 19:00 07:00 Intake Total 480 ml 400 ml Balance 480 ml 400 ml Intake Oral 480 ml 400 ml # Voids 2 2 Height (Feet): 5 Height (Inches): 4.00 Weight (Pounds): 180 Assessment/Plan Status: stable Assessment/Plan: S, O: I am feeling better PHYSICAL EXAMINATION:HEAD AND NECK: Atraumatic and normocephalic. CHEST: Diffuse bronchial breathing sounds. HEART: S1, S2. Regular rate and rhythm. ABDOMEN: Soft. No organomegaly. MUSCULOSKELETAL: No gross lateralized motor deficit. NEUROLOGY: Patient is awake, alert, oriented x3. Meds: reviewed and reconciled ASSESSMENT AND PLAN: 1. COVID positive pneumonia. 2. Anemia. 3. Hyponatremia. 4. Acute hypoxemic respiratory failure secondary to #1. 5. GI and DVT prophylaxes. PLAN OF CARE: current medical care Once clear by psych , july f/u as o/p Kevin Carolina MD Mar 10, 2020 12:00
--- NOTE | 2020-03-10 13:05 | Infectious Diseases Prog Note ---
Assessment/Plan Problems: (1) COVID-19 virus infection Assessment & Plan: with hypoxemia , continue remdisvir for 5 days and decadron for 10 days , keep in enhanced droplets isolation (2) Pneumonia due to COVID-19 virus Assessment & Plan: continue remdisvir and decadron , monitor O2 sat and CXR , SEND SPUTUM CULTURE (3) Hypoxia Assessment & Plan: improving due to the above, continue oxygen and antivirals with steroids (4) Fever due to COVID-19 Assessment & Plan: improving continue tylenol (5) Acute hypoxemic respiratory failure due to COVID-19 Assessment & Plan: on remdisvir and decadron , continue high flow oxygen Subjective Constitutional: Reports: no symptoms HEENT: Reports: no symptoms Respiratory: Reports: shortness of breath, dry cough Breasts: Reports: no symptoms Cardiovascular: Reports: no symptoms Gastrointestinal/Abdominal: Reports: no symptoms Genitourinary: Reports: no symptoms Neurologic: Reports: no symptoms Psychiatric: Reports: no symptoms Skin: Reports: no symptoms Endocrine: Reports: no symptoms Hematologic: Reports: no symptoms Musculoskeletal: Reports: no symptoms Allergies: Coded Allergies: PENICILLINS (Verified Allergy, Unknown, 03/05/20) she was feeling okay, satting well on nasal cannula and tolerated oral intake well Objective Last 24 Hour Vital Signs Date Time Temp Pulse Resp B/P (MAP) Pulse Ox O2 Delivery O2 Flow Rate FiO2 03/10/20 11:58 98.0 82 21 95/73 (80) 96 82 82 03/10/20 09:00 Nasal Cannula 6.0 03/10/20 08:00 97.1 70 21 92/63 (73) 95 70 70 03/10/20 08:00 58 03/10/20 04:00 62 03/10/20 04:00 98.2 45 20 113/56 (75) 95 03/10/20 00:00 97.4 56 18 118/67 (84) 98 03/10/20 00:00 36 03/09/20 21:00 Nasal Cannula 6.0 03/09/20 20:33 95 Nasal Cannula 4.0 36 03/09/20 20:00 47 03/09/20 20:00 97.3 54 18 110/65 (80) 97 03/09/20 16:00 97.1 48 21 139/73 (95) 96 03/09/20 16:00 48 12/23/20 13:19 93 Nasal Cannula 5.0 40 Height (Feet): 5 Height (Inches): 4.00 Weight (Pounds): 180 General Appearance: WD/WN, no acute distress HEENT: normocephalic, atraumatic, anicteric, mucous membranes moist, PERRL Respiratory/Chest: chest wall non-tender, no respiratory distress, no accessory muscle use, decreased breath sounds Cardiovascular: normal peripheral pulses, normal rate, regular rhythm Abdomen: normal bowel sounds, soft, non tender, no organomegaly Extremities: no cyanosis, no clubbing Skin: no rash, no lesions 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, alert, oriented x 3 Lymphatic: no neck adenopathy, no groin adenopathy Musculoskeletal: normal muscle bulk, no effusion Current Medications Medications (Trade) Dose Ordered Sig/Jennifer Route PRN Reason Start Time Stop Time Status Last Admin Dose Admin Acetaminophen (Tylenol) 650 mg Q4H PRN ORAL Mild Pain (Pain Scale 1-3) 03/05/20 20:30 04/04/20 20:29 Albuterol/ Ipratropium (Albuterol/ Ipratropium) 3 ml QID PRN HHN Shortness of Breath 03/05/20 20:30 03/10/20 20:29 Azithromycin 500 mg/Dextrose 275 ml @ 275 mls/hr Q24H IV 03/08/20 11:00 03/14/20 23:59 03/10/20 10:21 Ceftriaxone Sodium 1 gm/ Dextrose 55 ml @ 110 mls/hr Q24H IVPB 03/08/20 10:00 03/14/20 09:59 03/10/20 09:14 Dexamethasone Sodium Phosphate (Decadron 4mg/ml vial) 6 mg DAILY IVP 03/06/20 09:00 03/15/20 23:23 03/10/20 09:13 Enoxaparin Sodium (Lovenox) 40 mg Q24H SUBQ 03/06/20 09:00 06/04/20 08:59 03/10/20 09:15 Lorazepam (Ativan 2mg/ml 1ml) 0.5 mg Q4H PRN IV For Anxiety 03/05/20 20:30 03/12/20 20:29 Morphine Sulfate (Morphine Sulfate) 2 mg TID PRN IVP Moderate Pain (Pain Scale 4-6) 03/05/20 20:30 03/12/20 20:29 Ondansetron HCl (Zofran) 4 mg Q6H PRN IVP Nausea & Vomiting 03/05/20 20:30 04/04/20 20:29 Zolpidem Tartrate (Ambien) 5 mg HSPRN PRN ORAL Insomnia 03/05/20 20:30 03/12/20 20:29 Mandi Bella M.D. Mar 10, 2020 13:05
--- NOTE | 2020-03-10 13:08 | Pulmonology Progress Note ---
Subjective ROS Limited/Unobtainable: No Interval Events: none major reported per nursing Constitutional: Reports: no symptoms HEENT: Repors: no symptoms Respiratory: Reports: shortness of breath - improving Cardiovascular: Reports: no symptoms Gastrointestinal/Abdominal: Reports: no symptoms Psychiatric: Reports: no symptoms Skin: Reports: no symptoms Musculoskeletal: Reports: no symptoms Allergies: Coded Allergies: PENICILLINS (Verified Allergy, Unknown, 03/05/20) Objective Last 24 Hour Vital Signs Date Time Temp Pulse Resp B/P (MAP) Pulse Ox O2 Delivery O2 Flow Rate FiO2 03/10/20 11:58 98.0 82 21 95/73 (80) 96 82 82 03/10/20 09:00 Nasal Cannula 6.0 03/10/20 08:00 97.1 70 21 92/63 (73) 95 70 70 03/10/20 08:00 58 03/10/20 04:00 62 03/10/20 04:00 98.2 45 20 113/56 (75) 95 03/10/20 00:00 97.4 56 18 118/67 (84) 98 03/10/20 00:00 36 03/09/20 21:00 Nasal Cannula 6.0 03/09/20 20:33 95 Nasal Cannula 4.0 36 03/09/20 20:00 47 03/09/20 20:00 97.3 54 18 110/65 (80) 97 03/09/20 16:00 97.1 48 21 139/73 (95) 96 03/09/20 16:00 48 03/09/20 13:19 93 Nasal Cannula 5.0 40 Intake and Output 03/09/20 03/10/20 19:00 07:00 Intake Total 480 ml 400 ml Balance 480 ml 400 ml Intake Oral 480 ml 400 ml # Voids 2 2 Objective 03/10 saturating at 94% on 5 L NC 03/09 saturating 95% on 6L NC General Appearance: WD/WN, no acute distress HEENT: normocephalic, atraumatic Respiratory: chest wall non-tender Cardiovascular: normal rate, regular rhythm Abdomen: soft, non tender Current Medications Medications (Trade) Dose Ordered Sig/Jennifer Route PRN Reason Start Time Stop Time Status Last Admin Dose Admin Acetaminophen (Tylenol) 650 mg Q4H PRN ORAL Mild Pain (Pain Scale 1-3) 03/05/20 20:30 04/04/20 20:29 Albuterol/ Ipratropium (Albuterol/ Ipratropium) 3 ml QID PRN HHN Shortness of Breath 03/05/20 20:30 03/10/20 20:29 Azithromycin 500 mg/Dextrose 275 ml @ 275 mls/hr Q24H IV 03/08/20 11:00 03/14/20 23:59 03/10/20 10:21 Ceftriaxone Sodium 1 gm/ Dextrose 55 ml @ 110 mls/hr Q24H IVPB 03/08/20 10:00 03/14/20 09:59 03/10/20 09:14 Dexamethasone Sodium Phosphate (Decadron 4mg/ml vial) 6 mg DAILY IVP 03/06/20 09:00 03/15/20 23:23 03/10/20 09:13 Enoxaparin Sodium (Lovenox) 40 mg Q24H SUBQ 03/06/20 09:00 06/04/20 08:59 03/10/20 09:15 Lorazepam (Ativan 2mg/ml 1ml) 0.5 mg Q4H PRN IV For Anxiety 03/05/20 20:30 03/12/20 20:29 Morphine Sulfate (Morphine Sulfate) 2 mg TID PRN IVP Moderate Pain (Pain Scale 4-6) 03/05/20 20:30 03/12/20 20:29 Ondansetron HCl (Zofran) 4 mg Q6H PRN IVP Nausea & Vomiting 03/05/20 20:30 04/04/20 20:29 Zolpidem Tartrate (Ambien) 5 mg HSPRN PRN ORAL Insomnia 03/05/20 20:30 03/12/20 20:29 Assessment/Plan Assessment/Plan 1. COVID-19 pneumonitis with respiratory distress - currently saturating at 94% on 5L NC. - Continue supplemental oxygen; titrate as tolerated - On ceftriaxone per Dr. Cordova. - Decadron per Dr. Bella. - now off remdesivir - On azithromycin per Dr. Carolina. - CXR 03/09 Similar to mildly increased extensive multifocal pulmonary opacities 2. DVT prophylaxis - on Lovenox. 3. History of fever. 4. Sinus bradycardia - Dr. Tiejrina following - 2D Echo We will follow carefully. The care for this patient was discussed with my supervising physician. Time spent for this case was approximately 31 minutes. Danny Velazquez Mar 10, 2020 13:08 Lenny Carrasquillo MD Mar 10, 2020 13:51
[2020-03-10 16:00] VITALS: BP 92/63
--- NOTE | 2020-03-10 18:31 | Cardiology Progress Note ---
Assessment/Plan Assessment/Plan 1. Hypotension, responded to IV bolus NS, I&O's. Echo shows normal LVEF. 2. Sinus bradycardia, better, likely related to COVID-19 infection including full dose of Lovenox. 3. COVID-19 pneumonitis. 4. Acute hypoxemic respiratory failure. Subjective Subjective Sinus rhythm at rate of 60. Objective Last 24 Hour Vital Signs Date Time Temp Pulse Resp B/P (MAP) Pulse Ox O2 Delivery O2 Flow Rate FiO2 03/10/20 16:00 97.1 60 20 92/63 (73) 97 60 60 03/10/20 16:00 44 03/10/20 12:00 44 03/10/20 11:58 98.0 82 21 95/73 (80) 96 82 82 03/10/20 09:00 Nasal Cannula 6.0 03/10/20 08:00 97.1 70 21 92/63 (73) 95 70 70 03/10/20 08:00 58 03/10/20 07:30 95 Nasal Cannula 5.0 40 03/10/20 04:00 62 03/10/20 04:00 98.2 45 20 113/56 (75) 95 03/10/20 00:00 97.4 56 18 118/67 (84) 98 03/10/20 00:00 36 03/09/20 21:00 Nasal Cannula 6.0 03/09/20 20:33 95 Nasal Cannula 4.0 36 03/09/20 20:00 47 03/09/20 20:00 97.3 54 18 110/65 (80) 97 Intake and Output 03/09/20 03/10/20 19:00 07:00 Intake Total 480 ml 400 ml Balance 480 ml 400 ml Intake Oral 480 ml 400 ml # Voids 2 2 2D Echo: LVEF 60%, RVSP 15 mmHg Laboratory Tests Test 03/10/20 14:10 D-Dimer > 35.20 mg/L FEU Objective HEENT: Atraumatic and normocephalic. Anicteric. Pupils are equal, round, and reactive to light and accommodation. Extraocular muscles intact. NECK: JVP less than 5 cm. No carotid bruit. Carotid upstrokes 2+ bilaterally. CARDIOVASCULAR SYSTEM: Normal S1, S2. Regular rhythm. No murmurs, gallops, or rubs. PMI is at fourth intercostal space in midclavicular line. LUNGS: Bibasilar crackles. ABDOMEN: Soft, nontender, nondistended. No hepatosplenomegaly. Positive bowel sounds. EXTREMITIES: No evidence of edema, clubbing, or cyanosis. Breezy Raymond MD Mar 10, 2020 18:31
--- NOTE | 2020-03-10 19:01 | NUR ---
HAND-OFF: Report given to ALBERT.
--- NOTE | 2020-03-10 19:20 | NUR ---
NURSE NOTES: Report received from Simba RIBEIRO. Patient awake alert oriented x4 No SOB or distress. Call light and bedside table with in reach. Bed at lowest position locked with side rails up. Will continue with plan of care.
[2020-03-10 20:00] VITALS: BP 97/65
--- NOTE | 2020-03-10 20:07 | Nephrology Progress Note ---
Assessment/Plan Assessment 1. Hyponatremia. 2. Hypocalcemia. 3. Acute COVID infection. Plan continue current iv mix all ivpb with NS avoid NSAID replace electrolyte as need it Subjective ROS Limited/Unobtainable: Yes Objective Objective Last 24 Hour Vital Signs Date Time Temp Pulse Resp B/P (MAP) Pulse Ox O2 Delivery O2 Flow Rate FiO2 03/10/20 16:00 97.1 60 20 92/63 (73) 97 60 60 03/10/20 16:00 44 03/10/20 12:00 44 03/10/20 11:58 98.0 82 21 95/73 (80) 96 82 82 03/10/20 09:00 Nasal Cannula 6.0 03/10/20 08:00 97.1 70 21 92/63 (73) 95 70 70 03/10/20 08:00 58 03/10/20 07:30 95 Nasal Cannula 5.0 40 03/10/20 04:00 62 03/10/20 04:00 98.2 45 20 113/56 (75) 95 03/10/20 00:00 97.4 56 18 118/67 (84) 98 03/10/20 00:00 36 03/09/20 21:00 Nasal Cannula 6.0 03/09/20 20:33 95 Nasal Cannula 4.0 36 Intake and Output 03/09/20 03/10/20 19:00 07:00 Intake Total 480 ml 400 ml Balance 480 ml 400 ml Intake Oral 480 ml 400 ml # Voids 2 2 Laboratory Tests 03/10/20 14:10: D-Dimer > 35.20H Height (Feet): 5 Height (Inches): 4.00 Weight (Pounds): 180 Objective HEENT: Atraumatic and normocephalic. Anicteric. Pupils are equal, round, and reactive to light and accommodation. Extraocular muscles intact. NECK: JVP less than 5 cm. No carotid bruit. Carotid upstrokes 2+ bilaterally. CARDIOVASCULAR SYSTEM: Normal S1, S2. Regular rhythm. No murmurs, gallops, or rubs. PMI is at fourth intercostal space in midclavicular line. LUNGS: Bibasilar crackles. ABDOMEN: Soft, nontender, nondistended. No hepatosplenomegaly. Positive bowel sounds. EXTREMITIES: No evidence of edema, clubbing, or cyanosis. Bahmani,Dawn MD Mar 10, 2020 20:07
[2020-03-11] VITALS: BP 102/68
[2020-03-11 04:00] VITALS: BP 142/78
[2020-03-11 06:49] LABS: BASOPHILS % (AUTO) 0.6 % (0.0-2.0); EOSINOPHILS % (AUTO) 0.6 % (0.0-3.0); HEMATOCRIT 34.2 % (37.0-47.0); HEMOGLOBIN 12.4 G/DL (12.0-16.0); LYMPHOCYTES % (AUTO) 23.7 % (20.0-45.0); MEAN CORPUSCULAR VOLUME 81 FL (80-99); NEUTROPHILS % (AUTO) 64.2 % (45.0-75.0); PLATELET COUNT 298 K/UL (150-450); RED BLOOD COUNT 4.22 M/UL (4.20-5.40); RED CELL DISTRIBUTION WIDTH 14.8 % (11.6-14.8); WHITE BLOOD COUNT 11.1 K/UL (4.8-10.8)
--- NOTE | 2020-03-11 07:25 | NUR ---
NURSE HAND-OFF REPORT: Important Events on Shift:Blood draw done for AM labs Patient Status: Stable alert oriented x4 Diet: Reg Pending Orders: [] Pending Results/Labs:[] Pending MD notification:[] Latest Vital Signs: Temperature 97.6 , Pulse 39 , B/P 142 /78 , Respiratory Rate 20 , O2 SAT 97 , Nasal Cannula, O2 Flow Rate 6.0 . Vital Sign Comment: Patient runs low 30's. Asymptomatic. EKG Rhythm: Sinus Bradycardia Rhythm change?: N Notified?: Frances Raymond MD Response: Latest Villarreal Fall Score: 20 Fall Risk: Low Risk Safety Measures: Call light Within Reach, Bed Alarm Zone 2, Side Rails Side Rails x2, Bed position Low and Locked. Fall Precautions: Yellow Socks Yellow Gown Patient Fall Education Report given to Alfreda RIBEIRO.
[2020-03-11 07:28] LABS: ALANINE AMINOTRANSFERASE 82 U/L (12-78); ALBUMIN 2.5 G/DL (3.4-5.0); ALBUMIN/GLOBULIN RATIO 0.6 (1.0-2.7); ALKALINE PHOSPHATASE 60 U/L (46-116); ANION GAP 7 mmol/L (5-15); ASPARTATE AMINO TRANSFERASE 23 U/L (15-37); BILIRUBIN,TOTAL 0.3 MG/DL (0.2-1.0); BLOOD UREA NITROGEN 16 mg/dL (7-18); CALCIUM 8.6 MG/DL (8.5-10.1); CARBON DIOXIDE 26 MMOL/L (21-32); CHLORIDE 104 MMOL/L (98-107); CREATININE 0.6 MG/DL (0.55-1.30); POTASSIUM 3.8 MMOL/L (3.5-5.1); SODIUM 137 MMOL/L (136-145)
--- NOTE | 2020-03-11 07:42 | NUR ---
NURSE NOTES: Report received from Bozena RIBEIRO. Patient seen on rounds, awake and eating breakfast, on O2 at 5lpm via NC with no signs of acute distress. Sinus bradycardia noted on tele monitor, Dr. Raymond previously made aware, pt is asymptomatic. PIV on right wrist patent and intact. Pt is continent and able to ambulate with assistance. Bed low and locked, siderails up x2, call light placed within reach and instructed to call nurse for assistance. Will continue to monitor.
[2020-03-11 08:00] VITALS: BP 95/53
[2020-03-11] MEDS: Enoxaparin 40mg Inj SUBQ SCH (08:57)
[2020-03-11] MEDS: cefTRIAXone 1 GM in D5W 55 ML IVPB SCH (09:48)
--- NOTE | 2020-03-11 11:04 | Pulmonology Progress Note ---
Subjective ROS Limited/Unobtainable: Yes Interval Events: none major reported per nursing Constitutional: Reports: no symptoms HEENT: Repors: no symptoms Respiratory: Reports: shortness of breath - improving Cardiovascular: Reports: no symptoms Gastrointestinal/Abdominal: Reports: no symptoms Psychiatric: Reports: no symptoms Skin: Reports: no symptoms Musculoskeletal: Reports: no symptoms Allergies: Coded Allergies: PENICILLINS (Verified Allergy, Unknown, 03/05/20) Objective Last 24 Hour Vital Signs Date Time Temp Pulse Resp B/P (MAP) Pulse Ox O2 Delivery O2 Flow Rate FiO2 03/11/20 09:00 Nasal Cannula 6.0 03/11/20 08:00 97.4 58 20 95/53 (67) 97 58 58 03/11/20 08:00 56 03/11/20 04:00 97.6 39 20 142/78 (99) 97 39 39 03/11/20 04:00 39 03/11/20 00:00 97.8 47 19 102/68 (79) 95 47 47 03/11/20 00:00 37 03/10/20 21:00 Nasal Cannula 6.0 03/10/20 20:00 97.6 50 18 97/65 (76) 98 50 51 03/10/20 20:00 48 03/10/20 19:20 96 Nasal Cannula 5.0 40 03/10/20 16:00 97.1 60 20 92/63 (73) 97 60 60 03/10/20 16:00 44 03/10/20 12:00 44 03/10/20 11:58 98.0 82 21 95/73 (80) 96 82 82 Intake and Output 03/10/20 03/11/20 19:00 07:00 Intake Total 960 ml 500 ml Balance 960 ml 500 ml Intake Oral 960 ml 500 ml # Voids 1 2 Objective 03/11 no change 03/10 saturating at 94% on 5 L NC 03/09 saturating 95% on 6L NC General Appearance: WD/WN, no acute distress HEENT: normocephalic, atraumatic Respiratory: chest wall non-tender Cardiovascular: normal rate, regular rhythm Abdomen: soft, non tender Laboratory Tests 03/10/20 14:10: D-Dimer > 35.20H 03/11/20 05:40: White Blood Count 11.1H, Red Blood Count 4.22, Hemoglobin 12.4, Hematocrit 34.2L , Mean Corpuscular Volume 81, Mean Corpuscular Hemoglobin 29.4, Mean Corpuscular Hemoglobin Concent 36.2H, Red Cell Distribution Width 14.8, Platelet Count 298, Mean Platelet Volume 9.6, Neutrophils (%) (Auto) 64.2, Lymphocytes (%) (Auto) 23.7, Monocytes (%) (Auto) 11.0H, Eosinophils (%) (Auto) 0.6, Basophils (%) (Auto) 0.6, Sodium Level 137, Potassium Level 3.8, Chloride Level 104, Carbon Dioxide Level 26, Anion Gap 7, Blood Urea Nitrogen 16, Creatinine 0.6, Estimat Glomerular Filtration Rate > 60, Glucose Level 97, Calcium Level 8.6, Total Bilirubin 0.3, Aspartate Amino Transf (AST/SGOT) 23, Alanine Aminotransferase (ALT/SGPT) 82H, Alkaline Phosphatase 60, Total Protein 6.8, Albumin 2.5L, Globulin 4.3, Albumin/Globulin Ratio 0.6L Current Medications Medications (Trade) Dose Ordered Sig/Jennifer Route PRN Reason Start Time Stop Time Status Last Admin Dose Admin Acetaminophen (Tylenol) 650 mg Q4H PRN ORAL Mild Pain (Pain Scale 1-3) 03/05/20 20:30 04/04/20 20:29 Azithromycin 500 mg/Dextrose 275 ml @ 275 mls/hr Q24H IV 03/08/20 11:00 03/14/20 23:59 03/10/20 10:21 Ceftriaxone Sodium 1 gm/ Dextrose 55 ml @ 110 mls/hr Q24H IVPB 03/08/20 10:00 03/14/20 09:59 03/11/20 09:48 Dexamethasone Sodium Phosphate (Decadron 4mg/ml vial) 6 mg DAILY IVP 03/06/20 09:00 03/15/20 23:23 03/11/20 08:56 Enoxaparin Sodium (Lovenox) 40 mg Q24H SUBQ 03/06/20 09:00 06/04/20 08:59 03/11/20 08:57 Lorazepam (Ativan 2mg/ml 1ml) 0.5 mg Q4H PRN IV For Anxiety 03/05/20 20:30 03/12/20 20:29 Morphine Sulfate (Morphine Sulfate) 2 mg TID PRN IVP Moderate Pain (Pain Scale 4-6) 03/05/20 20:30 03/12/20 20:29 Ondansetron HCl (Zofran) 4 mg Q6H PRN IVP Nausea & Vomiting 03/05/20 20:30 04/04/20 20:29 Zolpidem Tartrate (Ambien) 5 mg HSPRN PRN ORAL Insomnia 03/05/20 20:30 03/12/20 20:29 Assessment/Plan Assessment/Plan 1. COVID-19 pneumonitis with respiratory distress - currently saturating at 94% on 5L NC. - Continue supplemental oxygen; titrate as tolerated - On ceftriaxone per Dr. Cordova. - Decadron per Dr. Bella. - now off remdesivir - On azithromycin per Dr. Carolina. - CXR 03/09 Similar to mildly increased extensive multifocal pulmonary opacities 2. DVT prophylaxis - on Lovenox. 3. History of fever. 4. Sinus bradycardia - cardiology following - possibly related to COVID-19 infection 5. Hypotension - responded to IV bolus NS - per cardio - 2D Echo shows normal LVEF 60% We will follow carefully. The care for this patient was discussed with my supervising physician. Time spent for this case was approximately 31 minutes. Danny Velazquez Mar 11, 2020 11:04 Lenny Carrasquillo MD Mar 11, 2020 12:02
[2020-03-11] MEDS: Azithromycin 500 MG in D5W 275 ML IV SCH (11:16)
[2020-03-11 12:00] VITALS: BP 95/48
--- NOTE | 2020-03-11 15:49 | Nephrology Progress Note ---
Assessment/Plan Assessment 1. Hyponatremia. 2. Hypocalcemia. 3. Acute COVID infection. Plan continue current iv mix all ivpb with NS avoid NSAID replace electrolyte as need it Subjective ROS Limited/Unobtainable: Yes Objective Objective Last 24 Hour Vital Signs Date Time Temp Pulse Resp B/P (MAP) Pulse Ox O2 Delivery O2 Flow Rate FiO2 03/11/20 12:00 99.9 53 20 95/48 (64) 95 53 53 03/11/20 12:00 62 03/11/20 09:00 Nasal Cannula 6.0 03/11/20 08:00 97.4 58 20 95/53 (67) 97 58 58 03/11/20 08:00 56 03/11/20 04:00 97.6 39 20 142/78 (99) 97 39 39 03/11/20 04:00 39 03/11/20 00:00 97.8 47 19 102/68 (79) 95 47 47 03/11/20 00:00 37 03/10/20 21:00 Nasal Cannula 6.0 03/10/20 20:00 97.6 50 18 97/65 (76) 98 50 51 03/10/20 20:00 48 03/10/20 19:20 96 Nasal Cannula 5.0 40 03/10/20 16:00 97.1 60 20 92/63 (73) 97 60 60 03/10/20 16:00 44 Intake and Output 03/10/20 03/11/20 19:00 07:00 Intake Total 960 ml 500 ml Balance 960 ml 500 ml Intake Oral 960 ml 500 ml # Voids 1 2 Laboratory Tests 03/11/20 05:40: White Blood Count 11.1H, Red Blood Count 4.22, Hemoglobin 12.4, Hematocrit 34.2L , Mean Corpuscular Volume 81, Mean Corpuscular Hemoglobin 29.4, Mean Corpuscular Hemoglobin Concent 36.2H, Red Cell Distribution Width 14.8, Platelet Count 298, Mean Platelet Volume 9.6, Neutrophils (%) (Auto) 64.2, Lymphocytes (%) (Auto) 23.7, Monocytes (%) (Auto) 11.0H, Eosinophils (%) (Auto) 0.6, Basophils (%) (Auto) 0.6, Sodium Level 137, Potassium Level 3.8, Chloride Level 104, Carbon Dioxide Level 26, Anion Gap 7, Blood Urea Nitrogen 16, Creatinine 0.6, Estimat Glomerular Filtration Rate > 60, Glucose Level 97, Calcium Level 8.6, Total Bilirubin 0.3, Aspartate Amino Transf (AST/SGOT) 23, Alanine Aminotransferase (ALT/SGPT) 82H, Alkaline Phosphatase 60, Total Protein 6.8, Albumin 2.5L, Globulin 4.3, Albumin/Globulin Ratio 0.6L Height (Feet): 5 Height (Inches): 4.00 Weight (Pounds): 180 Objective HEENT: Atraumatic and normocephalic. Anicteric. Pupils are equal, round, and reactive to light and accommodation. Extraocular muscles intact. NECK: JVP less than 5 cm. No carotid bruit. Carotid upstrokes 2+ bilaterally. CARDIOVASCULAR SYSTEM: Normal S1, S2. Regular rhythm. No murmurs, gallops, or rubs. PMI is at fourth intercostal space in midclavicular line. LUNGS: Bibasilar crackles. ABDOMEN: Soft, nontender, nondistended. No hepatosplenomegaly. Positive bowel sounds. EXTREMITIES: No evidence of edema, clubbing, or cyanosis. Dawn Romano MD Mar 11, 2020 15:49
[2020-03-11 16:00] VITALS: BP 95/40
--- NOTE | 2020-03-11 19:09 | NUR ---
NURSE HAND-OFF REPORT: Important Events on Shift: No adverse events noted, O2 weaned down to 2lpm via NC with no signs of acute distress, sats 95-96% Patient Status: Stable Diet: Regular Pending Orders: N Pending Results/Labs:N Pending notification:N Latest Vital Signs: Temperature 97.9 , Pulse 54 , B/P 95 /40 , Respiratory Rate 18 , O2 SAT 95 , Nasal Cannula, O2 Flow Rate 2.0 . Vital Sign Comment: EKG Rhythm: Sinus Bradycardia Rhythm change?: N MD Notified?: Frances Raymond MD Response: Latest Villarreal Fall Score: 20 Fall Risk: Low Risk Safety Measures: Call light Within Reach, Bed Alarm Zone 2, Side Rails Side Rails x2, Bed position Low and Locked. Fall Precautions: Yellow Socks Yellow Gown Patient Fall Education Report given to Windy RIBEIRO.
--- NOTE | 2020-03-11 19:10 | NUR ---
NURSE NOTES: Received report from GEMA Gant; AOX4, romanian speaking; noted comnfortable in bed; COVID +; On O2 therapy 2L/min via NC; in no acute distress; denies any pain nor discomfort; ambulatory to the bathroom; With R wrist 22 gauge S/L, intact and patent; call light within reach, bed locked and in lowm position, side rails x 2; will continue to monitor.
[2020-03-11 20:00] VITALS: BP 110/48
--- NOTE | 2020-03-11 21:22 | General Progress Note ---
Subjective Allergies: Coded Allergies: PENICILLINS (Verified Allergy, Unknown, 03/05/20) Objective Last 24 Hour Vital Signs Date Time Temp Pulse Resp B/P (MAP) Pulse Ox O2 Delivery O2 Flow Rate FiO2 03/11/20 18:09 Nasal Cannula 2.0 03/11/20 16:47 Nasal Cannula 2.0 03/11/20 16:00 54 03/11/20 16:00 97.9 58 18 95/40 (58) 95 58 58 03/11/20 12:00 99.9 53 20 95/48 (64) 95 53 53 03/11/20 12:00 62 03/11/20 09:00 Nasal Cannula 6.0 03/11/20 08:00 97.4 58 20 95/53 (67) 97 58 58 03/11/20 08:00 56 03/11/20 04:00 97.6 39 20 142/78 (99) 97 39 39 03/11/20 04:00 39 03/11/20 00:00 97.8 47 19 102/68 (79) 95 47 47 03/11/20 00:00 37 Intake and Output 03/10/20 03/11/20 19:00 07:00 Intake Total 960 ml 500 ml Balance 960 ml 500 ml Intake Oral 960 ml 500 ml # Voids 1 2 Laboratory Tests 03/11/20 05:40: White Blood Count 11.1H, Red Blood Count 4.22, Hemoglobin 12.4, Hematocrit 34.2L , Mean Corpuscular Volume 81, Mean Corpuscular Hemoglobin 29.4, Mean Corpuscular Hemoglobin Concent 36.2H, Red Cell Distribution Width 14.8, Platelet Count 298, Mean Platelet Volume 9.6, Neutrophils (%) (Auto) 64.2, Lymphocytes (%) (Auto) 23.7, Monocytes (%) (Auto) 11.0H, Eosinophils (%) (Auto) 0.6, Basophils (%) (Auto) 0.6, Sodium Level 137, Potassium Level 3.8, Chloride Level 104, Carbon Dioxide Level 26, Anion Gap 7, Blood Urea Nitrogen 16, Creatinine 0.6, Estimat Glomerular Filtration Rate > 60, Glucose Level 97, Calcium Level 8.6, Total Bilirubin 0.3, Aspartate Amino Transf (AST/SGOT) 23, Alanine Aminotransferase (ALT/SGPT) 82H, Alkaline Phosphatase 60, Total Protein 6.8, Albumin 2.5L, Globulin 4.3, Albumin/Globulin Ratio 0.6L Height (Feet): 5 Height (Inches): 4.00 Weight (Pounds): 180 Assessment/Plan Status: stable Assessment/Plan: S, O: I am feeling better PHYSICAL EXAMINATION:HEAD AND NECK: Atraumatic and normocephalic. CHEST: Diffuse bronchial breathing sounds. HEART: S1, S2. Regular rate and rhythm. ABDOMEN: Soft. No organomegaly. MUSCULOSKELETAL: No gross lateralized motor deficit. NEUROLOGY: Patient is awake, alert, oriented x3. Meds: reviewed and reconciled ASSESSMENT AND PLAN: 1. COVID positive pneumonia. 2. Anemia. 3. Hyponatremia. 4. Acute hypoxemic respiratory failure secondary to #1. 5. GI and DVT prophylaxes. PLAN OF CARE: current medical care Once clear by ID , july f/u as o/p Kevin Carolina MD Mar 11, 2020 21:22
[2020-03-12] VITALS: BP 94/37
[2020-03-12 04:00] VITALS: BP 103/58
[2020-03-12 05:26] LABS: BASOPHILS % (AUTO) 0.8 % (0.0-2.0); EOSINOPHILS % (AUTO) 0.3 % (0.0-3.0); HEMATOCRIT 34.8 % (37.0-47.0); HEMOGLOBIN 12.4 G/DL (12.0-16.0); MEAN CORPUSCULAR VOLUME 84 FL (80-99); MONOCYTES % (AUTO) 8.5 % (1.0-10.0); NEUTROPHILS % (AUTO) 72.4 % (45.0-75.0); PLATELET COUNT 328 K/UL (150-450); RED BLOOD COUNT 4.17 M/UL (4.20-5.40); RED CELL DISTRIBUTION WIDTH 13.2 % (11.6-14.8); WHITE BLOOD COUNT 13.2 K/UL (4.8-10.8)
[2020-03-12 05:40] LABS: ALANINE AMINOTRANSFERASE 31 U/L (12-78); ALBUMIN 2.5 G/DL (3.4-5.0); ALBUMIN/GLOBULIN RATIO 0.6 (1.0-2.7); ALKALINE PHOSPHATASE 70 U/L (46-116); ANION GAP 6 mmol/L (5-15); ASPARTATE AMINO TRANSFERASE 19 U/L (15-37); BILIRUBIN,TOTAL 0.3 MG/DL (0.2-1.0); BLOOD UREA NITROGEN 17 mg/dL (7-18); CALCIUM 8.4 MG/DL (8.5-10.1); CARBON DIOXIDE 26 MMOL/L (21-32); CHLORIDE 104 MMOL/L (98-107); CREATININE 0.6 MG/DL (0.55-1.30); POTASSIUM 4.1 MMOL/L (3.5-5.1); SODIUM 136 MMOL/L (136-145)
--- NOTE | 2020-03-12 07:15 | NUR ---
NURSE HAND-OFF REPORT: Important Events on Shift: N/A Patient Status: AOX4, stable Diet: regular diet Pending Orders: N Pending Results/Labs: AM labs Pending MD notification: N Latest Vital Signs: Temperature 96.8 , Pulse 44 , B/P 103 /58 , Respiratory Rate 20 , O2 SAT 94 , Nasal Cannula, O2 Flow Rate 2.0 . Vital Sign Comment: stable EKG Rhythm: Sinus Bradycardia Rhythm change?: N MD Notified?: N Response: Latest Villarreal Fall Score: 20 Fall Risk: Low Risk Safety Measures: Call light Within Reach, Bed Alarm Zone 2, Side Rails Side Rails x2, Bed position Low and Locked. Fall Precautions: Yellow Socks Yellow Gown Patient Fall Education Report given to JUN Galeano
--- NOTE | 2020-03-12 07:40 | NUR ---
NURSE NOTES: Received patient A/A/Ox4 in bed. nepali speaking. Able to ambulate with minimal assistance. On O2 2l via NC. NO acute apparent distress noted. skin is intact. Denies of pain/discomfort noted. PIV access patent and intact. Tolerating food intake well. kept bed in the lowest position. siderails are upx2. kept bed alarm engaged and kept lock on @ all times. Call light is within easy reach,. will cont to monitor.
[2020-03-12] MEDS: Enoxaparin 40mg Inj SUBQ SCH (08:16)
[2020-03-12 08:19] VITALS: BP 106/41
[2020-03-12] MEDS: cefTRIAXone 1 GM in D5W 55 ML IVPB SCH (10:00)
[2020-03-12] MEDS: Azithromycin 500 MG in D5W 275 ML IV SCH (11:00)
--- NOTE | 2020-03-12 11:14 | Nephrology Progress Note ---
Assessment/Plan Assessment 1. Hyponatremia. 2. Hypocalcemia. 3. Acute COVID infection. Plan continue current iv mix all ivpb with NS avoid NSAID replace electrolyte as need it Subjective Constitutional: Reports: malaise, weakness Objective Objective Last 24 Hour Vital Signs Date Time Temp Pulse Resp B/P (MAP) Pulse Ox O2 Delivery O2 Flow Rate FiO2 03/12/20 09:00 Nasal Cannula 2.0 03/12/20 09:00 52 03/12/20 08:19 97.7 56 18 106/41 (62) 97 03/12/20 04:00 44 03/12/20 04:00 96.8 57 20 103/58 (73) 94 03/12/20 00:00 44 03/12/20 00:00 98.3 51 20 94/37 (56) 100 03/11/20 21:00 Nasal Cannula 2.0 03/11/20 20:00 46 03/11/20 20:00 97.3 62 20 110/48 (68) 94 03/11/20 18:09 Nasal Cannula 2.0 03/11/20 16:47 Nasal Cannula 2.0 03/11/20 16:00 54 03/11/20 16:00 97.9 58 18 95/40 (58) 95 58 58 03/11/20 12:00 99.9 53 20 95/48 (64) 95 53 53 03/11/20 12:00 62 Intake and Output 03/11/20 03/12/20 18:59 06:59 Intake Total 570 ml Balance 570 ml Intake Oral 240 ml IV Total 330 ml # Voids 2 # Bowel Movements 2 Laboratory Tests 03/12/20 03:55: White Blood Count 13.2H, Red Blood Count 4.17L, Hemoglobin 12.4, Hematocrit 34.8L, Mean Corpuscular Volume 84, Mean Corpuscular Hemoglobin 29.6, Mean Corpuscular Hemoglobin Concent 35.5, Red Cell Distribution Width 13.2, Platelet Count 328, Mean Platelet Volume 8.8, Neutrophils (%) (Auto) 72.4, Lymphocytes (%) (Auto) 18.0L, Monocytes (%) (Auto) 8.5, Eosinophils (%) (Auto) 0.3, Basophils (%) (Auto) 0.8, Sodium Level 136, Potassium Level 4.1, Chloride Level 104, Carbon Dioxide Level 26, Anion Gap 6, Blood Urea Nitrogen 17, Creatinine 0.6, Estimat Glomerular Filtration Rate > 60, Glucose Level 116H, Calcium Level 8.4L, Total Bilirubin 0.3, Aspartate Amino Transf (AST/SGOT) 19, Alanine Aminotransferase (ALT/SGPT) 31, Alkaline Phosphatase 70, Total Protein 6.7, Albumin 2.5L, Globulin 4.2, Albumin/Globulin Ratio 0.6L Height (Feet): 5 Height (Inches): 4.00 Weight (Pounds): 180 Objective HEENT: Atraumatic and normocephalic. Anicteric. Pupils are equal, round, and reactive to light and accommodation. Extraocular muscles intact. NECK: JVP less than 5 cm. No carotid bruit. Carotid upstrokes 2+ bilaterally. CARDIOVASCULAR SYSTEM: Normal S1, S2. Regular rhythm. No murmurs, gallops, or rubs. PMI is at fourth intercostal space in midclavicular line. LUNGS: Bibasilar crackles. ABDOMEN: Soft, nontender, nondistended. No hepatosplenomegaly. Positive bowel sounds. EXTREMITIES: No evidence of edema, clubbing, or cyanosis. Dawn Romano MD Mar 12, 2020 11:14
--- NOTE | 2020-03-12 11:48 | Pulmonology Progress Note ---
Subjective ROS Limited/Unobtainable: Yes Interval Events: None new reported Constitutional: Reports: no symptoms HEENT: Repors: no symptoms Respiratory: Reports: no symptoms Cardiovascular: Reports: no symptoms Gastrointestinal/Abdominal: Reports: no symptoms Psychiatric: Reports: no symptoms Skin: Reports: no symptoms Musculoskeletal: Reports: no symptoms Allergies: Coded Allergies: PENICILLINS (Verified Allergy, Unknown, 03/05/20) Objective Last 24 Hour Vital Signs Date Time Temp Pulse Resp B/P (MAP) Pulse Ox O2 Delivery O2 Flow Rate FiO2 03/12/20 09:00 Nasal Cannula 2.0 03/12/20 09:00 52 03/12/20 08:19 97.7 56 18 106/41 (62) 97 03/12/20 04:00 44 03/12/20 04:00 96.8 57 20 103/58 (73) 94 03/12/20 00:00 44 03/12/20 00:00 98.3 51 20 94/37 (56) 100 03/11/20 21:00 Nasal Cannula 2.0 03/11/20 20:00 46 03/11/20 20:00 97.3 62 20 110/48 (68) 94 03/11/20 18:09 Nasal Cannula 2.0 03/11/20 16:47 Nasal Cannula 2.0 03/11/20 16:00 54 03/11/20 16:00 97.9 58 18 95/40 (58) 95 58 58 03/11/20 12:00 99.9 53 20 95/48 (64) 95 53 53 03/11/20 12:00 62 Intake and Output 03/11/20 03/12/20 19:00 07:00 Intake Total 570 ml Balance 570 ml Intake Oral 240 ml IV Total 330 ml # Voids 2 # Bowel Movements 2 General Appearance: WD/WN, no acute distress HEENT: normocephalic, atraumatic Respiratory: chest wall non-tender Cardiovascular: normal rate, regular rhythm Abdomen: soft, non tender Laboratory Tests 03/12/20 03:55: White Blood Count 13.2H, Red Blood Count 4.17L, Hemoglobin 12.4, Hematocrit 34.8L, Mean Corpuscular Volume 84, Mean Corpuscular Hemoglobin 29.6, Mean Corpuscular Hemoglobin Concent 35.5, Red Cell Distribution Width 13.2, Platelet Count 328, Mean Platelet Volume 8.8, Neutrophils (%) (Auto) 72.4, Lymphocytes (%) (Auto) 18.0L, Monocytes (%) (Auto) 8.5, Eosinophils (%) (Auto) 0.3, Basophils (%) (Auto) 0.8, Sodium Level 136, Potassium Level 4.1, Chloride Level 104, Carbon Dioxide Level 26, Anion Gap 6, Blood Urea Nitrogen 17, Creatinine 0.6, Estimat Glomerular Filtration Rate > 60, Glucose Level 116H, Calcium Level 8.4L, Total Bilirubin 0.3, Aspartate Amino Transf (AST/SGOT) 19, Alanine Aminotransferase (ALT/SGPT) 31, Alkaline Phosphatase 70, Total Protein 6.7, Albumin 2.5L, Globulin 4.2, Albumin/Globulin Ratio 0.6L Current Medications Medications (Trade) Dose Ordered Sig/Jennifer Route PRN Reason Start Time Stop Time Status Last Admin Dose Admin Acetaminophen (Tylenol) 650 mg Q4H PRN ORAL Mild Pain (Pain Scale 1-3) 03/05/20 20:30 04/04/20 20:29 Azithromycin 500 mg/Dextrose 275 ml @ 275 mls/hr Q24H IV 03/08/20 11:00 03/14/20 23:59 03/11/20 11:16 Ceftriaxone Sodium 1 gm/ Dextrose 55 ml @ 110 mls/hr Q24H IVPB 03/08/20 10:00 03/14/20 09:59 03/11/20 09:48 Dexamethasone Sodium Phosphate (Decadron 4mg/ml vial) 6 mg DAILY IVP 03/06/20 09:00 03/15/20 23:23 03/11/20 08:56 Enoxaparin Sodium (Lovenox) 40 mg Q24H SUBQ 03/06/20 09:00 06/04/20 08:59 03/12/20 08:16 Lorazepam (Ativan 2mg/ml 1ml) 0.5 mg Q4H PRN IV For Anxiety 03/05/20 20:30 03/12/20 20:29 Morphine Sulfate (Morphine Sulfate) 2 mg TID PRN IVP Moderate Pain (Pain Scale 4-6) 03/05/20 20:30 03/12/20 20:29 Ondansetron HCl (Zofran) 4 mg Q6H PRN IVP Nausea & Vomiting 12/19/20 20:30 04/04/20 20:29 Zolpidem Tartrate (Ambien) 5 mg HSPRN PRN ORAL Insomnia 03/05/20 20:30 03/12/20 20:29 Assessment/Plan Assessment/Plan 1. COVID-19 pneumonia - currently saturating at 94% on 2L NC. Oxygenation improving. - Continue supplemental oxygen; titrate as tolerated - On ceftriaxone - Decadron - now off remdesivir - On azithromycin - CXR 03/09 Similar to mildly increased extensive multifocal pulmonary opacities 2. DVT prophylaxis - on Lovenox. 3. History of fever. 4. Sinus bradycardia - cardiology following - possibly related to COVID-19 infection 5. Hypotension - responded to IV bolus NS - per cardio - 2D Echo shows normal LVEF 60% Lenny Carrasquillo MD Mar 12, 2020 11:48
[2020-03-12 12:00] VITALS: BP 97/52
--- NOTE | 2020-03-12 15:10 | Infectious Diseases Prog Note ---
Assessment/Plan Problems: (1) COVID-19 virus infection Assessment & Plan: with hypoxemia , continue remdisvir for 5 days and decadron for 10 days , keep in enhanced droplets isolation (2) Pneumonia due to COVID-19 virus Assessment & Plan: continue remdisvir and decadron , monitor O2 sat and CXR , SEND SPUTUM CULTURE (3) Hypoxia Assessment & Plan: improving due to the above, continue oxygen and antivirals with steroids (4) Fever due to COVID-19 Assessment & Plan: improving continue tylenol (5) Acute hypoxemic respiratory failure due to COVID-19 Assessment & Plan: on remdisvir and decadron , continue high flow oxygen Subjective Constitutional: Reports: no symptoms HEENT: Reports: no symptoms Respiratory: Reports: no symptoms Breasts: Reports: no symptoms Cardiovascular: Reports: no symptoms Gastrointestinal/Abdominal: Reports: no symptoms Genitourinary: Reports: no symptoms Neurologic: Reports: no symptoms Psychiatric: Reports: no symptoms Skin: Reports: no symptoms Endocrine: Reports: no symptoms Hematologic: Reports: no symptoms Musculoskeletal: Reports: no symptoms Allergies: Coded Allergies: PENICILLINS (Verified Allergy, Unknown, 03/05/20) she was feeling okay, satting well on nasal cannula and tolerated oral intake well Objective Last 24 Hour Vital Signs Date Time Temp Pulse Resp B/P (MAP) Pulse Ox O2 Delivery O2 Flow Rate FiO2 03/12/20 12:00 97.9 58 16 97/52 (67) 96 03/12/20 09:00 Nasal Cannula 2.0 03/12/20 09:00 52 03/12/20 08:19 97.7 56 18 106/41 (62) 97 03/12/20 04:00 44 03/12/20 04:00 96.8 57 20 103/58 (73) 94 03/12/20 00:00 44 03/12/20 00:00 98.3 51 20 94/37 (56) 100 03/11/20 21:00 Nasal Cannula 2.0 03/11/20 20:00 46 03/11/20 20:00 97.3 62 20 110/48 (68) 94 03/11/20 18:09 Nasal Cannula 2.0 03/11/20 16:47 Nasal Cannula 2.0 03/11/20 16:00 54 03/11/20 16:00 97.9 58 18 95/40 (58) 95 58 58 Height (Feet): 5 Height (Inches): 4.00 Weight (Pounds): 180 General Appearance: WD/WN, no acute distress HEENT: normocephalic, atraumatic, anicteric, mucous membranes moist, PERRL Respiratory/Chest: chest wall non-tender, no respiratory distress, no accessory muscle use, decreased breath sounds, crackles/rales Cardiovascular: normal peripheral pulses, normal rate, regular rhythm Abdomen: normal bowel sounds, soft, non tender, no organomegaly, non distended, no mass Genitourinary: normal external genitalia Extremities: no cyanosis, no clubbing Skin: no rash, no lesions, no ulcers Neurologic/Psychiatric: family member caretaker II-XII grossly normal, no motor/sensory deficits, responsive Lymphatic: no neck adenopathy, no groin adenopathy Musculoskeletal: normal muscle bulk, no effusion Laboratory Tests Test 03/12/20 03:55 White Blood Count 13.2 K/UL (4.8-10.8) H Red Blood Count 4.17 M/UL (4.20-5.40) L Hemoglobin 12.4 G/DL (12.0-16.0) Hematocrit 34.8 % (37.0-47.0) L Mean Corpuscular Volume 84 FL (80-99) Mean Corpuscular Hemoglobin 29.6 PG (27.0-31.0) Mean Corpuscular Hemoglobin Concent 35.5 G/DL (32.0-36.0) Red Cell Distribution Width 13.2 % (11.6-14.8) Platelet Count 328 K/UL (150-450) Mean Platelet Volume 8.8 FL (6.5-10.1) Neutrophils (%) (Auto) 72.4 % (45.0-75.0) Lymphocytes (%) (Auto) 18.0 % (20.0-45.0) L Monocytes (%) (Auto) 8.5 % (1.0-10.0) Eosinophils (%) (Auto) 0.3 % (0.0-3.0) Basophils (%) (Auto) 0.8 % (0.0-2.0) Sodium Level 136 MMOL/L (136-145) Potassium Level 4.1 MMOL/L (3.5-5.1) Chloride Level 104 MMOL/L (98-107) Carbon Dioxide Level 26 MMOL/L (21-32) Anion Gap 6 mmol/L (5-15) Blood Urea Nitrogen 17 mg/dL (7-18) Creatinine 0.6 MG/DL (0.55-1.30) Estimat Glomerular Filtration Rate > 60 mL/min (>60) Glucose Level 116 MG/DL (74-106) H Calcium Level 8.4 MG/DL (8.5-10.1) L Total Bilirubin 0.3 MG/DL (0.2-1.0) Aspartate Amino Transf (AST/SGOT) 19 U/L (15-37) Alanine Aminotransferase (ALT/SGPT) 31 U/L (12-78) Alkaline Phosphatase 70 U/L (46-116) Total Protein 6.7 G/DL (6.4-8.2) Albumin 2.5 G/DL (3.4-5.0) L Globulin 4.2 g/dL Albumin/Globulin Ratio 0.6 (1.0-2.7) L Current Medications Medications (Trade) Dose Ordered Sig/Jennifer Route PRN Reason Start Time Stop Time Status Last Admin Dose Admin Acetaminophen (Tylenol) 650 mg Q4H PRN ORAL Mild Pain (Pain Scale 1-3) 03/05/20 20:30 04/04/20 20:29 Azithromycin 500 mg/Dextrose 275 ml @ 275 mls/hr Q24H IV 03/08/20 11:00 03/14/20 23:59 03/11/20 11:16 Ceftriaxone Sodium 1 gm/ Dextrose 55 ml @ 110 mls/hr Q24H IVPB 03/08/20 10:00 03/14/20 09:59 03/12/20 10:00 Dexamethasone Sodium Phosphate (Decadron 4mg/ml vial) 6 mg DAILY IVP 03/06/20 09:00 03/15/20 23:23 03/12/20 09:00 Enoxaparin Sodium (Lovenox) 40 mg Q24H SUBQ 03/06/20 09:00 06/04/20 08:59 03/12/20 08:16 Lorazepam (Ativan 2mg/ml 1ml) 0.5 mg Q4H PRN IV For Anxiety 03/05/20 20:30 03/12/20 20:29 Morphine Sulfate (Morphine Sulfate) 2 mg TID PRN IVP Moderate Pain (Pain Scale 4-6) 03/05/20 20:30 03/12/20 20:29 Ondansetron HCl (Zofran) 4 mg Q6H PRN IVP Nausea & Vomiting 03/05/20 20:30 04/04/20 20:29 Zolpidem Tartrate (Ambien) 5 mg HSPRN PRN ORAL Insomnia 03/05/20 20:30 03/12/20 20:29 Mandi Bella M.D. Mar 12, 2020 15:10
[2020-03-12 16:00] VITALS: BP 100/60
--- NOTE | 2020-03-12 18:04 | Cardiology Progress Note ---
Assessment/Plan Assessment/Plan 1. Hypotension, continue NS, I&O's. Echo shows normal LVEF. 2. Sinus bradycardia, likely related to COVID-19 infection including full dose of Lovenox. 3. COVID-19 pneumonitis. 4. Acute hypoxemic respiratory failure. Subjective Subjective Sinus bradycardia at rate of 56. Objective Last 24 Hour Vital Signs Date Time Temp Pulse Resp B/P (MAP) Pulse Ox O2 Delivery O2 Flow Rate FiO2 03/12/20 16:00 97.6 56 18 100/60 (73) 98 03/12/20 12:00 97.9 58 16 97/52 (67) 96 03/12/20 12:00 70 03/12/20 09:00 Nasal Cannula 2.0 03/12/20 09:00 52 03/12/20 08:19 97.7 56 18 106/41 (62) 97 03/12/20 04:00 44 03/12/20 04:00 96.8 57 20 103/58 (73) 94 03/12/20 00:00 44 03/12/20 00:00 98.3 51 20 94/37 (56) 100 03/11/20 21:00 Nasal Cannula 2.0 03/11/20 20:00 46 03/11/20 20:00 97.3 62 20 110/48 (68) 94 03/11/20 18:09 Nasal Cannula 2.0 Intake and Output 03/11/20 03/12/20 19:00 07:00 Intake Total 570 ml Balance 570 ml Intake Oral 240 ml IV Total 330 ml # Voids 2 # Bowel Movements 2 2D Echo: LVEF 60%, RVSP 15 mmHg Laboratory Tests Test 03/12/20 03:55 White Blood Count 13.2 K/UL (4.8-10.8) H Red Blood Count 4.17 M/UL (4.20-5.40) L Hemoglobin 12.4 G/DL (12.0-16.0) Hematocrit 34.8 % (37.0-47.0) L Mean Corpuscular Volume 84 FL (80-99) Mean Corpuscular Hemoglobin 29.6 PG (27.0-31.0) Mean Corpuscular Hemoglobin Concent 35.5 G/DL (32.0-36.0) Red Cell Distribution Width 13.2 % (11.6-14.8) Platelet Count 328 K/UL (150-450) Mean Platelet Volume 8.8 FL (6.5-10.1) Neutrophils (%) (Auto) 72.4 % (45.0-75.0) Lymphocytes (%) (Auto) 18.0 % (20.0-45.0) L Monocytes (%) (Auto) 8.5 % (1.0-10.0) Eosinophils (%) (Auto) 0.3 % (0.0-3.0) Basophils (%) (Auto) 0.8 % (0.0-2.0) Sodium Level 136 MMOL/L (136-145) Potassium Level 4.1 MMOL/L (3.5-5.1) Chloride Level 104 MMOL/L (98-107) Carbon Dioxide Level 26 MMOL/L (21-32) Anion Gap 6 mmol/L (5-15) Blood Urea Nitrogen 17 mg/dL (7-18) Creatinine 0.6 MG/DL (0.55-1.30) Estimat Glomerular Filtration Rate > 60 mL/min (>60) Glucose Level 116 MG/DL (74-106) H Calcium Level 8.4 MG/DL (8.5-10.1) L Total Bilirubin 0.3 MG/DL (0.2-1.0) Aspartate Amino Transf (AST/SGOT) 19 U/L (15-37) Alanine Aminotransferase (ALT/SGPT) 31 U/L (12-78) Alkaline Phosphatase 70 U/L (46-116) Total Protein 6.7 G/DL (6.4-8.2) Albumin 2.5 G/DL (3.4-5.0) L Globulin 4.2 g/dL Albumin/Globulin Ratio 0.6 (1.0-2.7) L Objective HEENT: Atraumatic and normocephalic. Anicteric. Pupils are equal, round, and reactive to light and accommodation. Extraocular muscles intact. NECK: JVP less than 5 cm. No carotid bruit. Carotid upstrokes 2+ bilaterally. CARDIOVASCULAR SYSTEM: Normal S1, S2. Regular rhythm. No murmurs, gallops, or rubs. PMI is at fourth intercostal space in midclavicular line. LUNGS: Bibasilar crackles. ABDOMEN: Soft, nontender, nondistended. No hepatosplenomegaly. Positive bowel sounds. EXTREMITIES: No evidence of edema, clubbing, or cyanosis. Breezy Ramyond MD Mar 12, 2020 18:04
--- NOTE | 2020-03-12 19:12 | NUR ---
NURSE HAND-OFF REPORT: Important Events on Shift: monitoring Oxygenation; safety measure rendered] Patient Status: [stable] Diet: [reg] Pending Orders: [daily labs] Pending Results/Labs:[in am] Pending MD notification:[] Latest Vital Signs: Temperature 97.6 , Pulse 56 , B/P 100 /60 , Respiratory Rate 18 , O2 SAT 98 , Nasal Cannula, O2 Flow Rate 2.0 . Vital Sign Comment: [] EKG Rhythm: Sinus Rhythm Rhythm change?: N MD Notified?: Frances Raymond MD Response: Latest Villarreal Fall Score: 20 Fall Risk: Low Risk Safety Measures: Call light Within Reach, Bed Alarm Zone 1, Side Rails Side Rails x2, Bed position Low and Locked. Fall Precautions: Yellow Socks Yellow Gown Patient Fall Education Report given to [hillary].
--- NOTE | 2020-03-12 19:25 | NUR ---
NURSE NOTES: Report received from Waleska BARAHONA. Patient awake alert and makes needs know Azeri speaking no SOB or distress. Call light and bedside table with in reach. Bed at lowest position locked with side rails up. Wiil continue with plan of care.
[2020-03-12 20:00] VITALS: BP 105/62
--- NOTE | 2020-03-12 21:54 | General Progress Note ---
Subjective Allergies: Coded Allergies: PENICILLINS (Verified Allergy, Unknown, 03/05/20) Objective Last 24 Hour Vital Signs Date Time Temp Pulse Resp B/P (MAP) Pulse Ox O2 Delivery O2 Flow Rate FiO2 03/12/20 16:00 97.6 56 18 100/60 (73) 98 03/12/20 12:00 97.9 58 16 97/52 (67) 96 03/12/20 12:00 70 03/12/20 09:00 Nasal Cannula 2.0 03/12/20 09:00 52 03/12/20 08:19 97.7 56 18 106/41 (62) 97 03/12/20 04:00 44 03/12/20 04:00 96.8 57 20 103/58 (73) 94 03/12/20 00:00 44 03/12/20 00:00 98.3 51 20 94/37 (56) 100 Intake and Output 03/11/20 03/12/20 19:00 07:00 Intake Total 570 ml Balance 570 ml Intake Oral 240 ml IV Total 330 ml # Voids 2 # Bowel Movements 2 Laboratory Tests 03/12/20 03:55: White Blood Count 13.2H, Red Blood Count 4.17L, Hemoglobin 12.4, Hematocrit 34.8L, Mean Corpuscular Volume 84, Mean Corpuscular Hemoglobin 29.6, Mean Corpuscular Hemoglobin Concent 35.5, Red Cell Distribution Width 13.2, Platelet Count 328, Mean Platelet Volume 8.8, Neutrophils (%) (Auto) 72.4, Lymphocytes (%) (Auto) 18.0L, Monocytes (%) (Auto) 8.5, Eosinophils (%) (Auto) 0.3, Basophils (%) (Auto) 0.8, Sodium Level 136, Potassium Level 4.1, Chloride Level 104, Carbon Dioxide Level 26, Anion Gap 6, Blood Urea Nitrogen 17, Creatinine 0.6, Estimat Glomerular Filtration Rate > 60, Glucose Level 116H, Calcium Level 8.4L, Total Bilirubin 0.3, Aspartate Amino Transf (AST/SGOT) 19, Alanine Aminotransferase (ALT/SGPT) 31, Alkaline Phosphatase 70, Total Protein 6.7, Albumin 2.5L, Globulin 4.2, Albumin/Globulin Ratio 0.6L Height (Feet): 5 Height (Inches): 4.00 Weight (Pounds): 180 Assessment/Plan Status: stable Assessment/Plan: S, O: I am feeling better PHYSICAL EXAMINATION:HEAD AND NECK: Atraumatic and normocephalic. CHEST: Diffuse bronchial breathing sounds. HEART: S1, S2. Regular rate and rhythm. ABDOMEN: Soft. No organomegaly. MUSCULOSKELETAL: No gross lateralized motor deficit. NEUROLOGY: Patient is awake, alert, oriented x3. Meds: reviewed and reconciled ASSESSMENT AND PLAN: 1. COVID positive pneumonia. 2. Anemia. 3. Hyponatremia. 4. Acute hypoxemic respiratory failure secondary to #1. 5. GI and DVT prophylaxes. PLAN OF CARE: current medical care Once clear by , july f/u as o/p Kevin Carolina MD Mar 12, 2020 21:54
[2020-03-13] VITALS: BP 101/60
[2020-03-13 04:00] VITALS: BP 103/62
[2020-03-13 05:03] LABS: BASOPHILS % (AUTO) 0.8 % (0.0-2.0); EOSINOPHILS % (AUTO) 0.2 % (0.0-3.0); HEMATOCRIT 33.2 % (37.0-47.0); HEMOGLOBIN 12.1 G/DL (12.0-16.0); LYMPHOCYTES % (AUTO) 12.6 % (20.0-45.0); MEAN CORPUSCULAR VOLUME 82 FL (80-99); MONOCYTES % (AUTO) 6.6 % (1.0-10.0); NEUTROPHILS % (AUTO) 79.9 % (45.0-75.0); PLATELET COUNT 340 K/UL (150-450); RED BLOOD COUNT 4.04 M/UL (4.20-5.40); RED CELL DISTRIBUTION WIDTH 14.7 % (11.6-14.8)
[2020-03-13 05:33] LABS: ALANINE AMINOTRANSFERASE 27 U/L (12-78); ALBUMIN 2.6 G/DL (3.4-5.0); ALBUMIN/GLOBULIN RATIO 0.6 (1.0-2.7); ALKALINE PHOSPHATASE 73 U/L (46-116); ANION GAP 6 mmol/L (5-15); ASPARTATE AMINO TRANSFERASE 15 U/L (15-37); BILIRUBIN,TOTAL 0.3 MG/DL (0.2-1.0); BLOOD UREA NITROGEN 17 mg/dL (7-18); CALCIUM 8.4 MG/DL (8.5-10.1); CARBON DIOXIDE 25 MMOL/L (21-32); CHLORIDE 105 MMOL/L (98-107); CREATININE 0.6 MG/DL (0.55-1.30); POTASSIUM 4.3 MMOL/L (3.5-5.1); SODIUM 136 MMOL/L (136-145)
--- NOTE | 2020-03-13 07:30 | NUR ---
NURSE HAND-OFF REPORT: Important Events on Shift:Patient is stable at this time. Improved endurance and removed O2 for short period of time. Blood draw done for AM labs Patient Status: Alert oriented x4 Diet: Reg Pending Orders: [] Pending Results/Labs:[] Pending MD notification:[] Latest Vital Signs: Temperature 98.0 , Pulse 48 , B/P 103 /62 , Respiratory Rate 18 , O2 SAT 97 , Nasal Cannula, O2 Flow Rate 2.0 . Vital Sign Comment: [] EKG Rhythm: Sinus Bradycardia Rhythm change?: N MD Notified?: Frances Raymond MD Response: Latest Villarreal Fall Score: 20 Fall Risk: Low Risk Safety Measures: Call light Within Reach, Bed Alarm Zone 1, Side Rails Side Rails x2, Bed position Low and Locked. Fall Precautions: Yellow Socks Yellow Gown Patient Fall Education Report given to Waleska BARAHONA.
--- NOTE | 2020-03-13 07:45 | NUR ---
NURSE NOTES: Received patient A/A/Ox4 in bed. uzbek speaking. Able to follow simple commands. Able to ambulate with minimal assistance. On O2 2l via NC. NO acute apparent distress noted. skin is intact. Denies of pain/discomfort noted. PIV access patent and intact. Tolerating food intake well. kept bed in the lowest position. siderails are upx2. kept bed alarm engaged and kept lock on @ all times. Call light is within easy reach,. will cont to monitor.
[2020-03-13 08:00] VITALS: BP 96/50
[2020-03-13] MEDS: Enoxaparin 40mg Inj SUBQ SCH (08:53)
[2020-03-13] MEDS: cefTRIAXone 1 GM in D5W 55 ML IVPB SCH (10:00)
--- NOTE | 2020-03-13 10:11 | Pulmonology Progress Note ---
Subjective ROS Limited/Unobtainable: Yes Interval Events: None new reported Constitutional: Reports: no symptoms HEENT: Repors: no symptoms Respiratory: Reports: no symptoms Cardiovascular: Reports: no symptoms Gastrointestinal/Abdominal: Reports: no symptoms Psychiatric: Reports: no symptoms Skin: Reports: no symptoms Musculoskeletal: Reports: no symptoms Allergies: Coded Allergies: PENICILLINS (Verified Allergy, Unknown, 03/05/20) Objective Last 24 Hour Vital Signs Date Time Temp Pulse Resp B/P (MAP) Pulse Ox O2 Delivery O2 Flow Rate FiO2 03/13/20 09:07 95 Nasal Cannula 5.0 40 03/13/20 08:00 97.9 53 22 96/50 (65) 96 03/13/20 04:00 48 03/13/20 04:00 98.0 51 18 103/62 (76) 97 03/13/20 00:00 97.6 52 18 101/60 (74) 96 03/13/20 00:00 52 03/12/20 21:00 Nasal Cannula 2.0 03/12/20 20:00 52 03/12/20 20:00 97.4 53 19 105/62 (76) 96 03/12/20 16:00 97.6 56 18 100/60 (73) 98 03/12/20 16:00 52 03/12/20 12:00 97.9 58 16 97/52 (67) 96 03/12/20 12:00 70 Intake and Output 03/12/20 03/13/20 18:59 06:59 Intake Total 420 ml 400 ml Balance 420 ml 400 ml Intake Oral 420 ml 400 ml # Voids 5 2 # Bowel Movements 2 2 General Appearance: WD/WN, no acute distress HEENT: normocephalic, atraumatic Respiratory: chest wall non-tender Cardiovascular: normal rate, regular rhythm Abdomen: soft, non tender Laboratory Tests 03/13/20 04:00: White Blood Count 14.0H, Red Blood Count 4.04L, Hemoglobin 12.1, Hematocrit 33.2L, Mean Corpuscular Volume 82, Mean Corpuscular Hemoglobin 30.0, Mean Corpuscular Hemoglobin Concent 36.5H, Red Cell Distribution Width 14.7, Platelet Count 340, Mean Platelet Volume 9.4, Neutrophils (%) (Auto) 79.9H, Lymphocytes (%) (Auto) 12.6L, Monocytes (%) (Auto) 6.6, Eosinophils (%) (Auto) 0.2, Basophils (%) (Auto) 0.8, Sodium Level 136, Potassium Level 4.3, Chloride Level 105, Carbon Dioxide Level 25, Anion Gap 6, Blood Urea Nitrogen 17, Creatinine 0.6, Estimat Glomerular Filtration Rate > 60, Glucose Level 123H, Calcium Level 8.4L, Total Bilirubin 0.3, Aspartate Amino Transf (AST/SGOT) 15, Alanine Aminotransferase (ALT/SGPT) 27, Alkaline Phosphatase 73, Total Protein 6.6, Albumin 2.6L, Globulin 4.0, Albumin/Globulin Ratio 0.6L Current Medications Medications (Trade) Dose Ordered Sig/Jennifer Route PRN Reason Start Time Stop Time Status Last Admin Dose Admin Acetaminophen (Tylenol) 650 mg Q4H PRN ORAL Mild Pain (Pain Scale 1-3) 03/05/20 20:30 04/04/20 20:29 Azithromycin 500 mg/Dextrose 275 ml @ 275 mls/hr Q24H IV 03/08/20 11:00 03/14/20 23:59 03/11/20 11:16 Ceftriaxone Sodium 1 gm/ Dextrose 55 ml @ 110 mls/hr Q24H IVPB 03/08/20 10:00 03/14/20 09:59 03/12/20 10:00 Dexamethasone Sodium Phosphate (Decadron 4mg/ml vial) 6 mg DAILY IVP 03/06/20 09:00 03/15/20 23:23 03/12/20 09:00 Enoxaparin Sodium (Lovenox) 40 mg Q24H SUBQ 03/06/20 09:00 06/04/20 08:59 03/13/20 08:53 Ondansetron HCl (Zofran) 4 mg Q6H PRN IVP Nausea & Vomiting 03/05/20 20:30 04/04/20 20:29 Assessment/Plan Assessment/Plan 1. COVID-19 pneumonia - currently saturating at 94% on 5L NC. Oxygenation unchanged last 24 hours - Continue supplemental oxygen; titrate as tolerated - On ceftriaxone - Decadron - now off remdesivir - On azithromycin - CXR 03/09 Similar to mildly increased extensive multifocal pulmonary opacities 2. DVT prophylaxis - on Lovenox. 3. History of fever. 4. Sinus bradycardia - cardiology following - possibly related to COVID-19 infection 5. Hypotension - responded to IV bolus NS - per cardio - 2D Echo shows normal LVEF 60% Lenny Carrasquillo MD Mar 13, 2020 10:11
[2020-03-13] MEDS: Azithromycin 500 MG in D5W 275 ML IV SCH (11:00)
[2020-03-13 12:00] VITALS: BP 101/67
--- NOTE | 2020-03-13 12:34 | NUR ---
RD ASSESSMENT & RECOMMENDATIONS SEE CARE ACTIVITY FOR COMPLETE ASSESSMENT DAILY ESTIMATED NEEDS: Needs based on Pulmonary 61.4kg abw 25-30 kcals/kg 2761-8117 total kcals 1-1.5 g protein/kg 61-92 g total protein 25-30 mL/kg 2456-6222 total fluid mLs NUTRITION DIAGNOSIS: Altered nutrition related lab values r/t clinical status as evidenced by elev BG (123 116), pt on decadron. CURRENT DIET: Regular PO DIET RECOMMENDATIONS: Regular diet ADDITIONAL RECOMMENDATIONS: 1) Monitor BG, need for carb control diet (pt on decadron) 2) On NC, monitor respiratory status and po intake 3) maintain calibrated bed scale wts
[2020-03-13 16:00] VITALS: BP 103/59
--- NOTE | 2020-03-13 18:59 | NUR ---
NURSE HAND-OFF REPORT: Important Events on Shift:[kept clean and comfortable] Patient Status: [stable] Diet: [reg] Pending Orders: [] Pending Results/Labs:[] Pending MD notification:[] Latest Vital Signs: Temperature 97.5 , Pulse 58 , B/P 103 /59 , Respiratory Rate 18 , O2 SAT 98 , Nasal Cannula, O2 Flow Rate 5.0 . Vital Sign Comment: [] EKG Rhythm: Sinus Bradycardia Rhythm change?: N MD Notified?: Frances Raymond MD Response: Latest Villarreal Fall Score: 20 Fall Risk: Low Risk Safety Measures: Call light Within Reach, Bed Alarm Zone 1, Side Rails Side Rails x2, Bed position Low and Locked. Fall Precautions: Yellow Socks Yellow Gown Patient Fall Education Report given to [hillary].
--- NOTE | 2020-03-13 19:25 | NUR ---
NURSE NOTES: Report received from Waleska BARAHONA. Patient awake alert and makes needs known with no SOB or distress. Call light in reach and bed side table. Bed at lowest position locked with side rails up. Will continue with plan of care.
[2020-03-13 20:00] VITALS: BP 105/60
--- NOTE | 2020-03-13 20:49 | Nephrology Progress Note ---
Assessment/Plan Assessment 1. Hyponatremia. 2. Hypocalcemia. 3. Acute COVID infection. Plan continue current iv mix all ivpb with NS avoid NSAID replace electrolyte as need it Subjective ROS Limited/Unobtainable: Yes Objective Objective Last 24 Hour Vital Signs Date Time Temp Pulse Resp B/P (MAP) Pulse Ox O2 Delivery O2 Flow Rate FiO2 03/13/20 16:00 97.5 55 18 103/59 (74) 98 03/13/20 16:00 58 03/13/20 12:00 97.7 52 18 101/67 (78) 97 03/13/20 12:00 50 03/13/20 09:07 95 Nasal Cannula 5.0 40 03/13/20 09:00 Nasal Cannula 2.0 03/13/20 08:00 97.9 53 22 96/50 (65) 96 03/13/20 08:00 54 03/13/20 04:00 48 03/13/20 04:00 98.0 51 18 103/62 (76) 97 03/13/20 00:00 97.6 52 18 101/60 (74) 96 03/13/20 00:00 52 03/12/20 21:00 Nasal Cannula 2.0 Intake and Output 03/12/20 03/13/20 19:00 07:00 Intake Total 530 ml 400 ml Balance 530 ml 400 ml Intake Oral 420 ml 400 ml IV Total 110 ml # Voids 5 2 # Bowel Movements 2 2 Laboratory Tests 03/13/20 04:00: White Blood Count 14.0H, Red Blood Count 4.04L, Hemoglobin 12.1, Hematocrit 33.2L, Mean Corpuscular Volume 82, Mean Corpuscular Hemoglobin 30.0, Mean Corpuscular Hemoglobin Concent 36.5H, Red Cell Distribution Width 14.7, Platelet Count 340, Mean Platelet Volume 9.4, Neutrophils (%) (Auto) 79.9H, Lymphocytes (%) (Auto) 12.6L, Monocytes (%) (Auto) 6.6, Eosinophils (%) (Auto) 0.2, Basophils (%) (Auto) 0.8, Sodium Level 136, Potassium Level 4.3, Chloride Level 105, Carbon Dioxide Level 25, Anion Gap 6, Blood Urea Nitrogen 17, Creatinine 0.6, Estimat Glomerular Filtration Rate > 60, Glucose Level 123H, Calcium Level 8.4L, Total Bilirubin 0.3, Aspartate Amino Transf (AST/SGOT) 15, Alanine Aminotransferase (ALT/SGPT) 27, Alkaline Phosphatase 73, Total Protein 6.6, Albumin 2.6L, Globulin 4.0, Albumin/Globulin Ratio 0.6L Height (Feet): 5 Height (Inches): 4.00 Weight (Pounds): 180 Objective HEENT: Atraumatic and normocephalic. Anicteric. Pupils are equal, round, and reactive to light and accommodation. Extraocular muscles intact. NECK: JVP less than 5 cm. No carotid bruit. Carotid upstrokes 2+ bilaterally. CARDIOVASCULAR SYSTEM: Normal S1, S2. Regular rhythm. No murmurs, gallops, or rubs. PMI is at fourth intercostal space in midclavicular line. LUNGS: Bibasilar crackles. ABDOMEN: Soft, nontender, nondistended. No hepatosplenomegaly. Positive bowel sounds. EXTREMITIES: No evidence of edema, clubbing, or cyanosis. Dawn Romano MD Mar 13, 2020 20:49
--- NOTE | 2020-03-13 21:30 | Infectious Diseases Prog Note ---
Assessment/Plan Problems: (1) COVID-19 virus infection Assessment & Plan: with hypoxemia , S/P remdisvir for 5 days and decadron for 10 days , keep in enhanced droplets isolation (2) Pneumonia due to COVID-19 virus Assessment & Plan: s/p remdisvir and decadron , monitor O2 sat AND TITRATE (3) Hypoxia Assessment & Plan: improving due to the above, continue oxygen and antivirals with steroids (4) Fever due to COVID-19 Assessment & Plan: improving continue tylenol (5) Acute hypoxemic respiratory failure due to COVID-19 Assessment & Plan: improving on remdisvir and decadron , continue high flow oxygen Subjective Constitutional: Reports: no symptoms HEENT: Reports: no symptoms Respiratory: Reports: no symptoms Breasts: Reports: no symptoms Cardiovascular: Reports: no symptoms Gastrointestinal/Abdominal: Reports: no symptoms Genitourinary: Reports: no symptoms Neurologic: Reports: no symptoms Psychiatric: Reports: no symptoms Skin: Reports: no symptoms Endocrine: Reports: no symptoms Hematologic: Reports: no symptoms Allergies: Coded Allergies: PENICILLINS (Verified Allergy, Unknown, 03/05/20) she was feeling okay, satting well on nasal cannula and tolerated oral intake well Objective Last 24 Hour Vital Signs Date Time Temp Pulse Resp B/P (MAP) Pulse Ox O2 Delivery O2 Flow Rate FiO2 03/13/20 16:00 97.5 55 18 103/59 (74) 98 03/13/20 16:00 58 03/13/20 12:00 97.7 52 18 101/67 (78) 97 03/13/20 12:00 50 03/13/20 09:07 95 Nasal Cannula 5.0 40 03/13/20 09:00 Nasal Cannula 2.0 03/13/20 08:00 97.9 53 22 96/50 (65) 96 03/13/20 08:00 54 03/13/20 04:00 48 03/13/20 04:00 98.0 51 18 103/62 (76) 97 03/13/20 00:00 97.6 52 18 101/60 (74) 96 03/13/20 00:00 52 Height (Feet): 5 Height (Inches): 4.00 Weight (Pounds): 180 General Appearance: WD/WN, no acute distress HEENT: normocephalic, atraumatic, anicteric, mucous membranes moist, PERRL Respiratory/Chest: chest wall non-tender, lungs clear, normal breath sounds, no respiratory distress, no accessory muscle use Cardiovascular: normal peripheral pulses, normal rate, regular rhythm, no gallop/murmur, no JVD Abdomen: normal bowel sounds, soft, non tender, no organomegaly, non distended, no mass, no scars Genitourinary: normal external genitalia Extremities: no cyanosis, no clubbing Skin: no rash, no lesions, no ulcers Neurologic/Psychiatric: artificial stone applicator II-XII grossly normal, no motor/sensory deficits, alert, oriented x 3, responsive Lymphatic: no neck adenopathy, no groin adenopathy Musculoskeletal: normal muscle bulk, no effusion Laboratory Tests Test 03/13/20 04:00 White Blood Count 14.0 K/UL (4.8-10.8) H Red Blood Count 4.04 M/UL (4.20-5.40) L Hemoglobin 12.1 G/DL (12.0-16.0) Hematocrit 33.2 % (37.0-47.0) L Mean Corpuscular Volume 82 FL (80-99) Mean Corpuscular Hemoglobin 30.0 PG (27.0-31.0) Mean Corpuscular Hemoglobin Concent 36.5 G/DL (32.0-36.0) H Red Cell Distribution Width 14.7 % (11.6-14.8) Platelet Count 340 K/UL (150-450) Mean Platelet Volume 9.4 FL (6.5-10.1) Neutrophils (%) (Auto) 79.9 % (45.0-75.0) H Lymphocytes (%) (Auto) 12.6 % (20.0-45.0) L Monocytes (%) (Auto) 6.6 % (1.0-10.0) Eosinophils (%) (Auto) 0.2 % (0.0-3.0) Basophils (%) (Auto) 0.8 % (0.0-2.0) Sodium Level 136 MMOL/L (136-145) Potassium Level 4.3 MMOL/L (3.5-5.1) Chloride Level 105 MMOL/L (98-107) Carbon Dioxide Level 25 MMOL/L (21-32) Anion Gap 6 mmol/L (5-15) Blood Urea Nitrogen 17 mg/dL (7-18) Creatinine 0.6 MG/DL (0.55-1.30) Estimat Glomerular Filtration Rate > 60 mL/min (>60) Glucose Level 123 MG/DL (74-106) H Calcium Level 8.4 MG/DL (8.5-10.1) L Total Bilirubin 0.3 MG/DL (0.2-1.0) Aspartate Amino Transf (AST/SGOT) 15 U/L (15-37) Alanine Aminotransferase (ALT/SGPT) 27 U/L (12-78) Alkaline Phosphatase 73 U/L (46-116) Total Protein 6.6 G/DL (6.4-8.2) Albumin 2.6 G/DL (3.4-5.0) L Globulin 4.0 g/dL Albumin/Globulin Ratio 0.6 (1.0-2.7) L Current Medications Medications (Trade) Dose Ordered Sig/Jennifer Route PRN Reason Start Time Stop Time Status Last Admin Dose Admin Acetaminophen (Tylenol) 650 mg Q4H PRN ORAL Mild Pain (Pain Scale 1-3) 03/05/20 20:30 04/04/20 20:29 Azithromycin 500 mg/Dextrose 275 ml @ 275 mls/hr Q24H IV 03/08/20 11:00 03/14/20 23:59 03/13/20 11:00 Ceftriaxone Sodium 1 gm/ Dextrose 55 ml @ 110 mls/hr Q24H IVPB 03/08/20 10:00 03/14/20 09:59 03/13/20 10:00 Dexamethasone Sodium Phosphate (Decadron 4mg/ml vial) 6 mg DAILY IVP 03/06/20 09:00 03/15/20 23:23 03/13/20 09:00 Enoxaparin Sodium (Lovenox) 40 mg Q24H SUBQ 03/06/20 09:00 06/04/20 08:59 03/13/20 08:53 Ondansetron HCl (Zofran) 4 mg Q6H PRN IVP Nausea & Vomiting 03/05/20 20:30 04/04/20 20:29 Mandi Bella M.D. Mar 13, 2020 21:30
--- NOTE | 2020-03-13 21:56 | Cardiology Progress Note ---
Assessment/Plan Assessment/Plan 1. Hypotension, resolved, continue hydration. Echo shows normal LVEF. 2. Sinus bradycardia, likely related to COVID-19 infection including full dose of Lovenox. 3. COVID-19 pneumonitis. 4. Acute hypoxemic respiratory failure. Subjective Subjective Sinus bradycardia at rate of 58. Objective Last 24 Hour Vital Signs Date Time Temp Pulse Resp B/P (MAP) Pulse Ox O2 Delivery O2 Flow Rate FiO2 03/13/20 16:00 97.5 55 18 103/59 (74) 98 03/13/20 16:00 58 03/13/20 12:00 97.7 52 18 101/67 (78) 97 03/13/20 12:00 50 03/13/20 09:07 95 Nasal Cannula 5.0 40 03/13/20 09:00 Nasal Cannula 2.0 03/13/20 08:00 97.9 53 22 96/50 (65) 96 03/13/20 08:00 54 03/13/20 04:00 48 03/13/20 04:00 98.0 51 18 103/62 (76) 97 03/13/20 00:00 97.6 52 18 101/60 (74) 96 03/13/20 00:00 52 Intake and Output 03/12/20 03/13/20 19:00 07:00 Intake Total 530 ml 400 ml Balance 530 ml 400 ml Intake Oral 420 ml 400 ml IV Total 110 ml # Voids 5 2 # Bowel Movements 2 2 2D Echo: LVEF 60%, RVSP 15 mmHg Laboratory Tests Test 03/13/20 04:00 White Blood Count 14.0 K/UL (4.8-10.8) H Red Blood Count 4.04 M/UL (4.20-5.40) L Hemoglobin 12.1 G/DL (12.0-16.0) Hematocrit 33.2 % (37.0-47.0) L Mean Corpuscular Volume 82 FL (80-99) Mean Corpuscular Hemoglobin 30.0 PG (27.0-31.0) Mean Corpuscular Hemoglobin Concent 36.5 G/DL (32.0-36.0) H Red Cell Distribution Width 14.7 % (11.6-14.8) Platelet Count 340 K/UL (150-450) Mean Platelet Volume 9.4 FL (6.5-10.1) Neutrophils (%) (Auto) 79.9 % (45.0-75.0) H Lymphocytes (%) (Auto) 12.6 % (20.0-45.0) L Monocytes (%) (Auto) 6.6 % (1.0-10.0) Eosinophils (%) (Auto) 0.2 % (0.0-3.0) Basophils (%) (Auto) 0.8 % (0.0-2.0) Sodium Level 136 MMOL/L (136-145) Potassium Level 4.3 MMOL/L (3.5-5.1) Chloride Level 105 MMOL/L (98-107) Carbon Dioxide Level 25 MMOL/L (21-32) Anion Gap 6 mmol/L (5-15) Blood Urea Nitrogen 17 mg/dL (7-18) Creatinine 0.6 MG/DL (0.55-1.30) Estimat Glomerular Filtration Rate > 60 mL/min (>60) Glucose Level 123 MG/DL (74-106) H Calcium Level 8.4 MG/DL (8.5-10.1) L Total Bilirubin 0.3 MG/DL (0.2-1.0) Aspartate Amino Transf (AST/SGOT) 15 U/L (15-37) Alanine Aminotransferase (ALT/SGPT) 27 U/L (12-78) Alkaline Phosphatase 73 U/L (46-116) Total Protein 6.6 G/DL (6.4-8.2) Albumin 2.6 G/DL (3.4-5.0) L Globulin 4.0 g/dL Albumin/Globulin Ratio 0.6 (1.0-2.7) L Objective HEENT: Atraumatic and normocephalic. Anicteric. Pupils are equal, round, and reactive to light and accommodation. Extraocular muscles intact. NECK: JVP less than 5 cm. No carotid bruit. Carotid upstrokes 2+ bilaterally. CARDIOVASCULAR SYSTEM: Normal S1, S2. Regular rhythm. No murmurs, gallops, or rubs. PMI is at fourth intercostal space in midclavicular line. LUNGS: Bibasilar crackles. ABDOMEN: Soft, nontender, nondistended. No hepatosplenomegaly. Positive bowel sounds. EXTREMITIES: No evidence of edema, clubbing, or cyanosis. Breezy Raymond MD Mar 13, 2020 21:56
[2020-03-14] VITALS: BP 100/62
[2020-03-14 04:00] VITALS: BP 101/60
--- NOTE | 2020-03-14 07:00 | NUR ---
NURSE NOTES: Report received from Bozena RIBEIRO. Patient seen on rounds, awake and up in bed, on O2 at 2lpm via NC with no signs of acute distress. Weaned off to room air and sats stable at 96%, pt appears comfortable with no SOB. PIV on left wrist patent and intact. Pt is ambulatory and continent. Bed low and locked, siderails up x2, call light placed within reach and instructed to call nurse for assistance. Will continue to monitor.
[2020-03-14 08:00] VITALS: BP 119/51
--- NOTE | 2020-03-14 08:13 | NUR ---
NURSE NOTES: Report given to Alfreda RIBEIRO. Endorsed plan of care.
[2020-03-14] MEDS: Azithromycin 500 MG in D5W 275 ML IV SCH (11:11)
[2020-03-14] MEDS: Enoxaparin 40mg Inj SUBQ SCH (11:15)
[2020-03-14 12:00] VITALS: BP 116/59
--- NOTE | 2020-03-14 13:52 | NUR ---
NURSE NOTES: Dr. Bella cleared patient for discharge home. Dr. Carolina informed, awaiting discharge orders.
--- NOTE | 2020-03-14 14:11 | Pulmonology Progress Note ---
Subjective ROS Limited/Unobtainable: Yes Interval Events: None new reported Constitutional: Reports: no symptoms HEENT: Repors: no symptoms Respiratory: Reports: no symptoms Cardiovascular: Reports: no symptoms Gastrointestinal/Abdominal: Reports: no symptoms Psychiatric: Reports: no symptoms Skin: Reports: no symptoms Musculoskeletal: Reports: no symptoms Allergies: Coded Allergies: PENICILLINS (Verified Allergy, Unknown, 03/05/20) Objective Last 24 Hour Vital Signs Date Time Temp Pulse Resp B/P (MAP) Pulse Ox O2 Delivery O2 Flow Rate FiO2 03/14/20 12:00 57 03/14/20 12:00 97.1 55 18 116/59 (78) 92 03/14/20 09:00 Room Air 03/14/20 08:00 97.5 45 18 119/51 (73) 97 03/14/20 08:00 38 03/14/20 04:00 98.2 65 18 101/60 (74) 97 03/14/20 04:00 39 03/14/20 00:00 98.4 62 18 100/62 (75) 95 03/14/20 00:00 47 03/13/20 21:00 94 Nasal Cannula 3.0 32 03/13/20 21:00 Nasal Cannula 2.0 03/13/20 20:00 57 03/13/20 20:00 97.2 60 18 105/60 (75) 95 03/13/20 16:00 97.5 55 18 103/59 (74) 98 03/13/20 16:00 58 Intake and Output 03/13/20 03/14/20 19:00 07:00 Intake Total 745 ml 400 ml Balance 745 ml 400 ml Intake Oral 360 ml 400 ml IV Total 385 ml # Voids 3 # Bowel Movements 1 Objective 03/11 no change 03/10 saturating at 94% on 5 L NC 03/09 saturating 95% on 6L NC General Appearance: WD/WN, no acute distress HEENT: normocephalic, atraumatic Respiratory: chest wall non-tender Cardiovascular: normal rate, regular rhythm Abdomen: soft, non tender Current Medications Medications (Trade) Dose Ordered Sig/Jennifer Route PRN Reason Start Time Stop Time Status Last Admin Dose Admin Acetaminophen (Tylenol) 650 mg Q4H PRN ORAL Mild Pain (Pain Scale 1-3) 03/05/20 20:30 04/04/20 20:29 Azithromycin 500 mg/Dextrose 275 ml @ 275 mls/hr Q24H IV 03/08/20 11:00 03/14/20 23:59 03/14/20 11:11 Dexamethasone Sodium Phosphate (Decadron 4mg/ml vial) 6 mg DAILY IVP 03/06/20 09:00 03/15/20 23:23 03/14/20 08:49 Enoxaparin Sodium (Lovenox) 40 mg Q24H SUBQ 03/06/20 09:00 06/04/20 08:59 03/14/20 11:15 Ondansetron HCl (Zofran) 4 mg Q6H PRN IVP Nausea & Vomiting 03/05/20 20:30 04/04/20 20:29 Assessment/Plan Assessment/Plan 1. COVID-19 pneumonitis with respiratory distress - currently saturating well on room air - provide supplemental oxygen as needed - Now off ceftriaxone - now off remdesivir - On decadron - On azithromycin per Dr. Carolina. - CXR 03/09 Similar to mildly increased extensive multifocal pulmonary opacities 2. DVT prophylaxis - on Lovenox. 3. History of fever. 4. Sinus bradycardia - cardiology following - possibly related to COVID-19 infection 5. Hypotension - responded to IV bolus NS - per cardio - 2D Echo shows normal LVEF 60% dc planning noted We will follow carefully. The care for this patient was discussed with my supervising physician. Time spent for this case was approximately 31 minutes. Danny Velazquez Mar 14, 2020 14:11
--- NOTE | 2020-03-14 14:54 | NUR ---
NURSE NOTES: Confirmed with Dr. Carolina, may discharge home, no discharge medications ordered.
--- NOTE | 2020-03-14 15:09 | NUR ---
CASE MANAGEMENT:REVIEW 03/14/20 SI: COVID PNA 97.1 55 18 116/59 92% ON ROOM AIR WBC+14.0 IS: IV AZITHROMYCIN Q24 IV DECADRON QD LOVENOX SQ Q24 : TELEMETRY STATUS DCP: FROM HOME PLAN: DISCHARGE HOME TODAY
[2020-03-14 16:00] VITALS: BP 113/62
--- NOTE | 2020-03-14 17:04 | NUR ---
NURSE NOTES: Patient discharged home, AxOx4, vitals stable prior to discharge, tolerating room air since this morning with no signs of distress. Skin is intact. All discharge instructions provided including Covid information packet. Patient has completed 10 day total isolation period here at hospital but advised to take standard precautions at home. PIV discontinued. Pt provided with number to Dr. Carolina's office for followup as needed. Pt wheeled to lobby and left at 1700 in private vehicle accompanied by family member. Belongings accounted for.
--- NOTE | 2020-03-14 21:07 | Cardiology Progress Note ---
Assessment/Plan Assessment/Plan 1. Hypotension, resolved, continue hydration. Echo shows normal LVEF. 2. Sinus bradycardia, likely related to COVID-19 infection including full dose of Lovenox. 3. COVID-19 pneumonitis. 4. Acute hypoxemic respiratory failure. Subjective Subjective Sinus bradycardia at rate of 51. Objective Last 24 Hour Vital Signs Date Time Temp Pulse Resp B/P (MAP) Pulse Ox O2 Delivery O2 Flow Rate FiO2 03/14/20 16:00 97.3 51 18 113/62 (79) 94 03/14/20 16:00 61 03/14/20 12:00 57 03/14/20 12:00 97.1 55 18 116/59 (78) 92 03/14/20 09:00 Room Air 03/14/20 08:00 97.5 45 18 119/51 (73) 97 03/14/20 08:00 38 03/14/20 04:00 98.2 65 18 101/60 (74) 97 03/14/20 04:00 39 03/14/20 00:00 98.4 62 18 100/62 (75) 95 03/14/20 00:00 47 Intake and Output 03/13/20 03/14/20 19:00 07:00 Intake Total 745 ml 400 ml Balance 745 ml 400 ml Intake Oral 360 ml 400 ml IV Total 385 ml # Voids 3 # Bowel Movements 1 2D Echo: LVEF 60%, RVSP 15 mmHg Objective HEENT: Atraumatic and normocephalic. Anicteric. Pupils are equal, round, and reactive to light and accommodation. Extraocular muscles intact. NECK: JVP less than 5 cm. No carotid bruit. Carotid upstrokes 2+ bilaterally. CARDIOVASCULAR SYSTEM: Normal S1, S2. Regular rhythm. No murmurs, gallops, or rubs. PMI is at fourth intercostal space in midclavicular line. LUNGS: Bibasilar crackles. ABDOMEN: Soft, nontender, nondistended. No hepatosplenomegaly. Positive bowel sounds. EXTREMITIES: No evidence of edema, clubbing, or cyanosis. Breezy Raymond MD Mar 14, 2020 21:07
--- NOTE | 2020-03-15 15:20 | Discharge Summary ---
Discharge Summary Discharge Summary _ Date of admission: 03/05/2020 Date of discharge: 03/14/[address] Carolina History of Present Illness and Brief Hospital Course Ms. Mike Espana is a 49-year-old female who presented to the hospital with 1 week history of progressively worsening shortness of breath associated with fever (T-max of 102), chills and palpitations. According to the patient, she tested positive for COVID-19 10 days prior to arrival. In the ER her oxygen saturation was 86% on room air. A 12-lead EKG showed sinus rhythm with no acute ischemic features. Chest x-ray showed bilateral patchy pulmonary opacities. The patient was given Decadron IV and antibiotics in the ER and was admitted to the hospital for further management and care. Patient was given ceftriaxone, and azithromycin for her pneumonia evidenced by her chest x-ray. Due to recent diagnosis of COVID-19 with fever she was given remdesivir and was put on enhanced droplet isolation. She was given Decadron due to hypoxia. Patient's fever was controlled with Tylenol. Shortly after admission patient started saturating at 95% on 6 L of oxygen via nasal cannula. Her oxygen was titrated down as tolerated over the course of her stay. A repeat chest x-ray on 03/09 showed similar to mildly increased extensive multifocal pulmonary opacities. By 03/14/2020 she was saturating well on room air. On arrival, patient was found to be in sinus tachycardia which was likely due to hypoxemia. Management plan was to provide supplemental oxygen with active treatment of COVID-19 infection. The patient required to be on a full dose of Lovenox given elevated D-dimer and severe pneumonitis on chest x-ray. Her sinus tachycardia was resolved within a few hours of arrival. Patient's blood pressure was transiently hypotensive but she responded well to IV bolus normal saline. Her I&O's were closely monitored. 2D echo revealed normal left ventricular ejection fraction of 60%. Initial laboratory studies showed electrolyte imbalance including hyponatremia and hypocalcemia and her electrolytes were replaced as needed along with IV fluids. Patient was discharged home on day 10, with stable vitals prior to discharge. She was tolerating room air. At the time of discharge patient has completed 10 days of droplet isolation here at the hospital but was advised to take standard precautions at home. Patient was provided with Dr. Carolina's office number for follow up as needed. Patient was accompanied by family member via private vehicle. Consultants: Cardiology Dr. Chery Infectious disease Dr. Bella Nephrology Dr. Romano Pulmonology Dr. Carrasquillo Discharge Condition Improved and stable Final diagnoses COVID-19 virus infection Pneumonia due to COVID-19 virus Fever due to COVID-19 Anemia Hyponatremia Hypocalcemia Acute hypoxemic respiratory failure due to COVID-19 Sinus bradycardia I have been assigned to dictate discharge summary for this account. Danny Velazquez Mar 15, 2020 15:20
== END 2020-03-14 17:00 | disposition home or self-care (01) | DRG 177 ==
LOC: EMR 15:30 → 2E 15:50 → EDBEDREQ 17:13 → EDBEDREQSVC 03-06 07:29 → EDBEDREQ 03-06 07:29 → EDBEDREQSVC 03-06 18:55 → EDBEDREQ 03-07 14:23 → 2E 03-09 04:55
DX: U07.1 COVID-19 (principal); J12.89 Other viral pneumonia; J96.01 Acute respiratory failure with hypoxia; E87.1 Hypo-osmolality and hyponatremia; D64.9 Anemia, unspecified; E83.51 Hypocalcemia; R00.1 Bradycardia, unspecified; E87.6 Hypokalemia
CPT/HCPCS: 36415; 71045; 80053; 81003; 82248; 82550; 82553; 82728; 83605; 83615; 83690; 83880; 84484; 85007; 85025; 85379; 85610; 85730; 86140; 87040; 93005; 93306; 96361; 96365; 96367; 96375; 99291; J3490; J7030